=== PATIENT | female | born 1965 | race Caucasian/White ===

== ENCOUNTER 2017-10-28 11:37 | Inpatient (IN) | payer SELFPAY ==
[2017-10-28 11:58] LABS: Hemoglobin 11.8 g/dL (12.0-16.0); Mean Corpuscular HGB CONC 30.6 g/dL (32.0-36.0); Mean Corpuscular Hemoglobin 25.1 pg (27.0-31.0); Mean Corpuscular Volume 82.2 fl (81.0-99.0); Mean Platelet Volume 7.5 fL (7.4-10.4); Platelet Count 865 thou/uL (130-400); RBC Distribution Width 15.8 % (11.5-14.5); Red Blood Cell (RBC) Count 4.68 mill/uL (4.20-5.40); White Blood Cell (WBC) Count 31.7 thou/uL (4.8-10.8)
[2017-10-28] MEDS ORDERED: Norepinephrine 4 MG/4 ML VIAL ONE ×2 (11:58→12:04)
[2017-10-28 12:16] LABS: ALT (SGPT) 35 U/L (8-55); AST (SGOT) 46 U/L (5-34); Albumin 3.4 g/dL (3.5-5.0); Alkaline Phosphatase 127 U/L (40-150); Anion Gap 16 mmol/L (10-20); BUN (Urea Nitrogen) 14 mg/dL (9.8-20.1); Bilirubin, Total 0.3 mg/dL (0.2-1.2); Calc. Creatinine Clearance 0 mL/min (70-130); Calcium 8.6 mg/dL (7.8-10.44); Carbon Dioxide 17 mmol/L (22-29); Chloride 111 mmol/L (98-107); Estimated GFR-MDRD 72; Globulin 4.1 g/dL (2.4-3.5); Glucose 192 mg/dL (70-105); Potassium 4.9 mmol/L (3.5-5.1); Protein, Total 7.5 g/dL (6.0-8.3); Sodium 139 mmol/L (136-145)
[2017-10-28] MEDS ORDERED: Sodium Bicarb 50 MEQ/50 ML Abboject 8.4% SYRINGE ONE (12:16)
--- NOTE | 2017-10-28 12:25 | RAD ---
PORTABLE AP CHEST: Date: 10/28/17 HISTORY: Intubation, aortic occlusion. COMPARISON: 10/28/17 at 1033 hours. FINDINGS: Endotracheal tube is again noted in place with tip overlying the T4-5 level and above the level of th e anila. Again noted are bilateral interstitial and alveolar opacities, which are are slightly incre ased from the prior study and may be related to pulmonary edema. Ayleen B-lines are also seen suggest ing pulmonary edema. No other interval change. IMPRESSION: 1. Endotracheal tube again noted in place. 2. Bilateral perihilar interstitial and alveolar opacities, probably attributable to pulmonary edema . POS: [facility]
[2017-10-28 12:29] LABS: Band 12 % (5-11); Lymphocytes 8 % (21-51); MDiff Complete? YES; Metamyelocyte 4 % (0-0); Monocytes 4 % (0-10); Myelocyte 2 % (0-0); Neutrophil 70 % (42-75); PLT Morphology Comment Appears Increased; RBC Morphology Normal
--- NOTE | 2017-10-28 15:05 | OP ---
DATE OF OPERATION: 10/28/2017 PREOPERATIVE DIAGNOSIS: Acute aortic occlusion. POSTOPERATIVE DIAGNOSIS: Acute aortic occlusion. PROCEDURE: Emergency aortobifemoral bypass. SURGEON: Dr. Todd Manriquez M.D. and Dr. Kali Laguerre. ANESTHESIA: General endotracheal. ESTIMATED BLOOD LOSS: 200 mL DESCRIPTION OF PROCEDURE: The patient was emergently brought to the operating room from the Emergenc y Department after being transferred via helicopter from [facility]. She was placed in supine position on the operating room table. General anesthesia was induced. Left subclavian centra l line was placed. Abdomen and legs were prepped and draped in usual sterile fashion. Both groins w ere exposed via vertical incisions. Common femoral, superficial femoral, and profunda femoris arteri es were exposed. Tunnels were begun under the inguinal ligament with ring clamps. Abdomen was then opened through a vertical midline laparotomy incision. Fascia was incised with left artery. Periton eum was entered. The peritoneal incision was extended from xiphoid to pubis. NG tube was confirmed in place. The transverse colon and omentum were delivered superiorly. The small bowel and right col on delivered out of the abdomen to the right. Bookwalter and [place] retractors were used to expose the retroperitoneum. The duodenum was brought off the retroperitoneum with a gentle electrocautery. Retroperitoneum was entered and the aorta exposed just distal to the renal arteries. The aortic exp osure was extended distally down to just at the proximal common iliac arteries. Ring clamps were the n passed into the abdominal cavity. The patient was given 7500 units of heparin. After 3 minutes, t he aorta was clamped just below the renal arteries. Aortotomy was performed just proximal to the inf erior mesenteric artery. The distal aorta was closed with running dual layer 3-0 Prolene suture. Th ere was significant burden of white gelatinous material, which was sent for routine pathologic exam. The aorta was burped and there was excellent antegrade flow. The aorta was prepared for proximal an astomosis. A 14 x 7 graft was selected and anastomosed proximally with running 4-0 Prolene suture. On release the aortic clamp, there was no bleeding and good hemostasis. Limbs were tunneled to both groins. On the right, this was approached first. The graft was sewn to the common femoral artery ex tending down onto the superficial femoral artery with running 5-0 Prolene suture. On release of clam ps, there was good hemostasis and good distal flow. On the left, the graft was extended down onto th e proximal profunda. A running 5-0 Prolene anastomosis was created. A 50 mg of protamine was given. Hemostasis was ensured. Groins were packed. The abdomen was reexplored. There was no bleeding from the retroperitoneum. The retroperitoneum was reclosed over the aortic graft with running 2-0 Vicryl suture. Abdomen was then copiously irrigated . Bowels were put back in the anatomic position. Sponge count was performed and was correct. The f ascia was closed in a running fashion with looped #1 PDS. Wounds were then irrigated, closed in mult iple layers, and clips used to close the skin. Groin incisions were copiously irrigated. There were palpable pulses, both in the profunda and the superficial femoral artery bilaterally. Groins were c losed in layers and clips used to close the skin. The patient tolerated procedure well, and was us sferred to the intensive care unit in stable, but critical condition.
[2017-10-28] MEDS ORDERED: Ondansetron HCl/PF 4 MG/2 ML Vial IVP PRN (15:10)
[2017-10-28] MEDS ORDERED: Sodium Chloride 0.9% 1,000 ML IV SCH ×2 (15:10→16:45)
[2017-10-28] MEDS ORDERED: Nitroglycerin 50 MG/250 ML BOT 250 ML IVPB PRN (15:10)
[2017-10-28] MEDS ORDERED: Fentanyl 100 MCG/2 ML VIAL SLOW IVP PRN ×2 (15:10)
[2017-10-28] MEDS ORDERED: Norepinephrine 8 MG/0.9% NS 250 ML IVPB PRN (15:10)
[2017-10-28] MEDS ORDERED: Ventilator Sedation Protocol 1 EACH FS ONE (15:10)
[2017-10-28] MEDS ORDERED: Potassium Chloride 20 MEQ/100 ML PREMIX BAG IVPB PRN (15:10)
[2017-10-28] MEDS ORDERED: Bisacodyl 5 MG TAB PO PRN (15:10)
[2017-10-28] MEDS ORDERED: Bisacodyl 10 MG SUPP PR PRN (15:10)
[2017-10-28] MEDS ORDERED: hydrALAZINE 20 MG/ML VIAL SLOW IVP PRN (15:10)
[2017-10-28] MEDS ORDERED: Mag-Al 1200 mg/1200 mg/30 ML UDCUP PO PRN (15:10)
[2017-10-28] MEDS ORDERED: Post-Op Insulin Drip Protocol IVPB ONE (15:10)
[2017-10-28] MEDS ORDERED: Dextrose 5% in Water 1,000 ML IV PRN (15:16)
[2017-10-28] MEDS ORDERED: Dextrose 50% Abboject 50 ML SYRINGE SLOW IVP PRN (15:16)
[2017-10-28] MEDS ORDERED: fentaNYL Citrate/PF 2,000 MCG in Sodium Chloride 0.9% 60 ML IV SCH (15:18)
[2017-10-28] MEDS ORDERED: DISCONTINUE PREVIOUS NARCOTIC PAIN MEDICATIONS AND BENZODIAZEPINES FS SCH (15:18)
[2017-10-28] MEDS ORDERED: Propofol BOLUS 1,000 MG/100 ML VIAL IV PRN (15:18)
[2017-10-28] MEDS ORDERED: Lorazepam 2 MG/ML VIAL SLOW IVP PRN (15:18)
[2017-10-28] MEDS ORDERED: Fentanyl BOLUS 250 ML IVPB PRN (15:18)
[2017-10-28] MEDS ORDERED: Morphine 4 MG/ML VIAL SLOW IVP PRN (15:18)
--- NOTE | 2017-10-28 15:27 | CON ---
DATE OF CONSULTATION: 10/28/2017 HISTORY OF PRESENT ILLNESS: Ms. Cleary is a 52-year-old woman who presented to the [facility] with severe back pain. She rapidly progressed to having a mottled skin from her umbilicu s to her feet. She had an acute aortic dissection protocol. CT scan performed that show aortic occl usion just distal to the renal arteries. The patient was intubated due to mental status changes and transferred to [facility] via helicopter. On her arrival, chest x-ray was performed confirming endotracheal tube placement. There was good CO2 return. The labs were drawn for type and cross, and the patient was rapidly assessed. Pulse was 11 0, blood pressure at this time was 110/79. The patient indeed was mottled from umbilicus to the feet . She had no femoral pulses. The patient was rapidly taken to the operating room for operative inte rvention. PAST MEDICAL HISTORY: Unknown. PAST SURGICAL HISTORY: Unknown. CURRENT MEDICATIONS: Unknown. ALLERGIES: Unknown. SOCIAL HISTORY: Unknown. PHYSICAL EXAMINATION: As above. ASSESSMENT AND PLAN: Acute aortic occlusion for aortobifemoral bypass.
[2017-10-28] MEDS: Propofol 1,000 MG/100 ML VIAL IV PRN (15:34)
[2017-10-28 15:53] LABS: Anion Gap 16 mmol/L (10-20); BUN (Urea Nitrogen) 14 mg/dL (9.8-20.1); Calc. Creatinine Clearance 92 mL/min (70-130); Calcium 7.9 mg/dL (7.8-10.44); Carbon Dioxide 21 mmol/L (22-29); Chloride 108 mmol/L (98-107); Estimated GFR-MDRD 58; Glucose 192 mg/dL (70-105); Potassium 5.9 mmol/L (3.5-5.1); Sodium 139 mmol/L (136-145)
[2017-10-28 15:58] LABS: Band 11 % (5-11); Hemoglobin 11.9 g/dL (12.0-16.0); Hypochromia SLIGHT = 6-15 cells (100X) (0-5/hpf); Lymphocytes 10 % (21-51); MDiff Complete? YES; Mean Corpuscular HGB CONC 30.7 g/dL (32.0-36.0); Mean Corpuscular Volume 81.4 fl (81.0-99.0); Mean Platelet Volume 7.3 fL (7.4-10.4); Metamyelocyte 4 % (0-0); Monocytes 5 % (0-10); Myelocyte 1 % (0-0); Neutrophil 69 % (42-75); PLT Morphology Comment Appears Increased; Platelet Count 786 thou/uL (130-400); Polychromasia SLIGHT = 2-3 cells (100X) (0-2/hpf); Red Blood Cell (RBC) Count 4.76 mill/uL (4.20-5.40); White Blood Cell (WBC) Count 32.9 thou/uL (4.8-10.8)
--- NOTE | 2017-10-28 16:04 | RAD ---
CHEST ONE VIEW: 10/28/17 HISTORY: Heart surgery. COMPARISON: 10/28/17. FINDINGS: The cardiac silhouette is magnified and enlarged. Pulmonary vasculature remains markedly engorged w ith widespread patchy infiltrates and reticulonodular interstitial prominence. Mediastinum is midline . Endotracheal catheter remains in place. Nasogastric tube descends to the abdomen. Tip of a left sub clavian central venous catheter overlies the cavoatrial junction. No evidence of pneumothorax. IMPRESSION: 1. Pulmonary vascular congestion. 2. Nasogastric tube and left subclavian central venous catheter have been placed and are in good radiographic position. POS: [facility]
[2017-10-28] MEDS: Insulin Regular 300 UNITS/3 ML VIAL SC PRN ×2 (16:07→19:49)
[2017-10-28 16:24] LABS: Actual Bicarbonate (HCO3a) 20.5 mEq/L (22-26); Base Excess (BEa) -5.6 mEq/L (0 (+/-) 2.5); CO2 Tension 42.7 mmHg (35.0-45.0); O2 Tension (PaO2) 149.1 mmHg (80.0-100.0)
[2017-10-28 16:25] LABS: Hematocrit-ABG 39.3 % (36.0-47.0); Hemoglobin (Hb) 11.6 g/dL (12.0-16.0); Puncture Site A-LINE
[2017-10-28 16:26] LABS: ALV-art Gradient 510.525 (0-20)
[2017-10-28] MEDS ORDERED: ePHEDrine/0.9% NaCl/PF SYRINGE 50 mg/10 ml ONE (16:32)
[2017-10-28] MEDS ORDERED: Heparin 10,000 UNITS/ 10 ML VIAL ONE (16:32)
[2017-10-28] MEDS ORDERED: Sodium Bicarb 50 MEQ/50 ML VIAL ONE (16:32)
--- NOTE | 2017-10-28 18:31 | CON ---
DATE OF CONSULTATION: 10/28/2017 SERVICE: Pulmonary Medicine. REASON FOR CONSULTATION: Ventilated patient. HISTORY OF PRESENT ILLNESS: The patient is a 52-year-old white female with past medical history sign ificant for a greater than 30-[id number]-[id number] history of smoking. She was in her usual state of health thi s morning when she woke up. She had sudden onset of lower extremity paresthesias, pain, and weakness . She slumped over into her bed. She did not hit her head. She was found in that location. She wa s subsequently brought to the Emergency Department where she had mottled lower extremities. Imaging studies confirmed that she had lack of blood flow to her legs. She subsequently went for an emergent aortobifemoral bypass surgery. Afterwards, she had decent blood flow to the bilateral lower extremi ties. She had horrendous acidosis on presentation, which is slowly improving. She is awake on mecha nical ventilation. She is able to wiggle all 4 extremities. She has no specific complaints right no w other than wanting to have the tube removed from her. PAST MEDICAL HISTORY: None. PAST SURGICAL HISTORY: 1. Tubal ligation. 2. Palmer teeth extraction. SOCIAL HISTORY: She has a 70-pjeq-frvh history of smoking and continues to smoke 1-1/2 packs on a da roseann basis. The family says she does not have any significant alcohol or illicit drug use. She works in [employer] with [employer]. That being said, they are not aware of any chemicals that she may be exposed to. She has never been exposed to tuberculosis so far as they are aware. She does not have dusts that she comes in contact with. FAMILY HISTORY: Noncontributory. ALLERGIES: PENICILLIN causes an unknown type of a rash. MEDICATIONS: The patient does not have any home medications. I have reviewed her inpatient medicati ons and modified them. REVIEW OF SYSTEMS: This cannot be obtained as the patient is currently intubated and sedated. PHYSICAL EXAMINATION: HEENT: Normocephalic, atraumatic. Sclerae are white, conjunctivae pink. Oral and nasal mucosa is m oist without lesions. GENERAL: The patient is somnolent, but wakes up. She is following commands. She is nodding yes and no appropriately. She is CAM negative currently. LUNGS: Decent air entry with prolonged expiratory phase and polyphonic wheezing. HEART: Tachycardic. Regular. ABDOMEN: Soft, nontender, nondistended. Bowel sounds are positive. GENITOURINARY: Mcgovern in place. NEUROLOGIC: Grossly nonfocal. MUSCULOSKELETAL: No cyanosis or clubbing. She has good perfusion. Capillary refill in the bilatera l lower extremities. Pulses are equal bilaterally. LABORATORY DATA: WBC 32.9, hemoglobin 38.7, and platelets 786,000. Band count is stable at 11%. PH 7.30, pCO2 42, pO2 149 on 100% FiO2 and a PEEP of 10 at that time. Potassium 5.9. Creatinine up tr ending to 0.93. Basic metabolic profile is otherwise unremarkable. LFTs are essentially unremarkabl e, but will be repeated in the morning. IMAGING: Chest x-ray demonstrates pulmonary vascular congestion. Nasogastric tube and left subclavi an central venous catheter in good position. She has an endotracheal tube terminating roughly 5 cm a azra the level of the anila. Lungs are hyperexpanded. ASSESSMENT: 1. Acute hypoxic respiratory failure. 2. Chronic obstructive pulmonary disease with mild acute exacerbation. 3. Hyperkalemia. 4. Acute aortic occlusion, status post aortobifemoral bypass, postop day zero. 5. Chronic obstructive pulmonary disease, suspected. 6. Peripheral vascular disease. PLAN: We will give her aspirin and start some nebulized medications as scheduled. I will give her a dose of Kayexalate. We will repeat potassium tomorrow morning. Liver function studies as well as o ther laboratories will be repeated in the morning. I will hold off on IV fluids as she has already g judd several significant boluses in the operating room during the procedure. I will change her over to pressure support ventilation as she seems to tolerate these settings a little bit better. We orlando l consider her for extubation in the morning assuming she clears her acidosis. CRITICAL CARE TIME: 40 minutes.
[2017-10-28] MEDS: CEFAZOLIN/Water 2 GM/20 ML SYRINGE SLOW IVP SCH (18:39)
[2017-10-28] MEDS: Atorvastatin Calcium 40 MG TAB PO SCH (20:10)
[2017-10-28] MEDS: Famotidine 40 MG/4 ML VIAL SLOW IVP SCH (20:23)
[2017-10-29] MEDS: Propofol 1,000 MG/100 ML VIAL IV PRN (00:07)
[2017-10-29] MEDS: Insulin Regular 300 UNITS/3 ML VIAL SC PRN ×3 (00:07→20:37)
[2017-10-29] MEDS: CEFAZOLIN/Water 2 GM/20 ML SYRINGE SLOW IVP SCH ×2 (02:49→11:49)
[2017-10-29 05:10] LABS: Band 6 % (5-11); Hemoglobin 11.2 g/dL (12.0-16.0); Lymphocytes 10 % (21-51); MDiff Complete? YES; Mean Corpuscular HGB CONC 32.1 g/dL (32.0-36.0); Mean Corpuscular Hemoglobin 25.6 pg (27.0-31.0); Mean Corpuscular Volume 79.8 fl (81.0-99.0); Mean Platelet Volume 7.4 fL (7.4-10.4); Monocytes 3 % (0-10); Neutrophil 81 % (42-75); PLT Morphology Comment Appears Increased; Platelet Count 544 thou/uL (130-400); RBC Distribution Width 15.9 % (11.5-14.5); Red Blood Cell (RBC) Count 4.36 mill/uL (4.20-5.40); White Blood Cell (WBC) Count 20.9 thou/uL (4.8-10.8)
[2017-10-29 05:15] LABS: ALT (SGPT) 103 U/L (8-55); AST (SGOT) 311 U/L (5-34); Albumin 2.9 g/dL (3.5-5.0); Alkaline Phosphatase 116 U/L (40-150); Bilirubin, Direct 0.2 mg/dL (0.1-0.3); Bilirubin, Total 0.3 mg/dL (0.2-1.2); Protein, Total 6.6 g/dL (6.0-8.3)
[2017-10-29 05:18] LABS: Anion Gap 13 mmol/L (10-20); BUN (Urea Nitrogen) 14 mg/dL (9.8-20.1); Calc. Creatinine Clearance 87 mL/min (70-130); Calcium 7.6 mg/dL (7.8-10.44); Carbon Dioxide 21 mmol/L (22-29); Cardiac Risk 4.9 (Less than 4.5); Chloride 111 mmol/L (98-107); Cholesterol 138 mg/dl (< 200 Desired); Estimated GFR-MDRD 55; Glucose 155 mg/dL (70-105); HDL Cholesterol 28 mg/dL (>60 Neg Risk); LDL Cholesterol, Calculated 88 mg/dL; Magnesium 2.1 mg/dL (1.6-2.6); Phosphorus 2.1 mg/dL (2.3-4.7); Potassium 4.1 mmol/L (3.5-5.1); Sodium 141 mmol/L (136-145); Triglycerides 110 mg/dL (Less than 150)
[2017-10-29] MEDS ORDERED: Furosemide 20 MG/2 ML VIAL SLOW IVP SCH (06:30)
--- NOTE | 2017-10-29 06:50 | PRG ---
DATE OF SERVICE: 10/29/2017 SERVICE: Pulmonary Medicine. INTERVAL HISTORY: The patient is doing well from a respiratory standpoint. She denies any current chest pain, nausea, vomiting, fevers or chills. She is on mechanical ventilation. She is on a little bit of a sedation holiday and is following some simple commands. She had an uneventful night. PHYSICAL EXAMINATION: VITAL SIGNS: Afebrile, pulse 113, blood pressure 106/72, respirations 19, saturation 99% on 31% FiO2 and a PEEP of 5. GENERAL: The patient is intubated and little sleepy, but she wakes up comfortably. Without stimulation, she will drift back off to sleep in less than 10 seconds. HEENT: Normocephalic, atraumatic. Sclerae are white, conjunctivae pink. Oral and nasal mucosa is moist without lesions. LUNGS: Decent air entry bilaterally. Rhonchi are present. Dependent crackles are also evident. HEART: Normal rate, regular. ABDOMEN: Soft, nontender, nondistended. Bowel sounds are positive. MUSCULOSKELETAL: No cyanosis or clubbing. There is no pitting in the bilateral lower extremities. NEUROLOGIC: Grossly nonfocal. LABORATORY DATA: WBC 20.9, hemoglobin 11.2, platelets 544,000. Neutrophil and band count are improving. Basic metabolic profile is completely unremarkable. Calcium 7.6, phosphorus 2.1. Magnesium falls within the normal limits. AST and ALT are both trending upward. IMAGING: Chest x-ray demonstrates endotracheal tube in good position. Pulmonary vascular congestion is evident. There is a right lower lobe infiltrate which is a touch denser. Enteric catheter courses well below the level of the diaphragm. ASSESSMENT: 1. Acute hypoxic respiratory failure secondary to resuscitation. 2. Chronic obstructive pulmonary disease with mild exacerbation. 3. Hyperkalemia, resolved. 4. Hypophosphatemia. 5. Peripheral vascular disease? 6. Acute aortic occlusion, status post aortobifemoral bypass, postoperative day #1. DISCUSSION AND PLAN: We will put on a spontaneous breathing trial. Phosphorus will be replaced today. Pulmonary Critical Care will continue to follow along for the time being. If she meets criteria, extubation will be considered. We will allow her to auto diurese through time. I anticipate kidney function getting a little bit worse through time because of this recent event and the fact that she was anuric when she returned from the operating room for a couple of hours. LFTs will be rechecked in a couple of days. Critical care time: 30 minutes. TERRIE
[2017-10-29] MEDS: Famotidine 40 MG/4 ML VIAL SLOW IVP SCH ×2 (08:01→20:25)
--- NOTE | 2017-10-29 08:11 | RAD ---
PORTABLE CHEST: DATE: 10/29/17. PROVIDED CLINICAL HISTORY: Post open heart. FINDINGS: Comparison 10/28/17. Cardiac and mediastinal silhouette is unchanged in appearance. Endotracheal tub e, left subclavian central line, and enteric catheter are again seen in similar positions. Prominenc e of the pulmonary vasculature and pulmonary interstitium. Possible right perihilar airspace disease . IMPRESSION: Findings compatible with volume overload/congestive failure with alveolar edema involving the right p erihilar region. POS: [facility]
[2017-10-29] MEDS: Acetaminophen 325 MG TAB PO PRN ×3 (10:00→20:25)
[2017-10-29 11:31] LABS: Hemoglobin A1c 5.8 % (4.0-6.0)
[2017-10-29] MEDS ORDERED: predniSONE 20 MG TAB PO SCH (16:45)
[2017-10-29] MEDS: Atorvastatin Calcium 40 MG TAB PO SCH (20:26)
[2017-10-30] MEDS: Insulin Regular 300 UNITS/3 ML VIAL SC PRN ×2 (00:04→04:28)
[2017-10-30] MEDS: Morphine 4 MG/ML VIAL SLOW IVP PRN ×2 (00:12→20:04)
[2017-10-30 05:10] LABS: Anion Gap 9 mmol/L (10-20); BUN (Urea Nitrogen) 15 mg/dL (9.8-20.1); Calc. Creatinine Clearance 138 mL/min (70-130); Calcium 8.1 mg/dL (7.8-10.44); Carbon Dioxide 27 mmol/L (22-29); Chloride 108 mmol/L (98-107); Estimated GFR-MDRD Greater than 90; Glucose 130 mg/dL (70-105); Potassium 3.6 mmol/L (3.5-5.1); Sodium 140 mmol/L (136-145)
[2017-10-30 05:33] LABS: Band 9 % (5-11); Hemoglobin 10.2 g/dL (12.0-16.0); Lymphocytes 9 % (21-51); MDiff Complete? YES; Mean Corpuscular HGB CONC 32.1 g/dL (32.0-36.0); Mean Corpuscular Hemoglobin 25.5 pg (27.0-31.0); Mean Corpuscular Volume 79.5 fl (81.0-99.0); Mean Platelet Volume 7.9 fL (7.4-10.4); Monocytes 4 % (0-10); Neutrophil 78 % (42-75); Platelet Count 364 thou/uL (130-400); RBC Distribution Width 15.8 % (11.5-14.5); Red Blood Cell (RBC) Count 4.01 mill/uL (4.20-5.40); White Blood Cell (WBC) Count 19.9 thou/uL (4.8-10.8)
--- NOTE | 2017-10-30 08:31 | RAD ---
PORTABLE CHEST: DATE: 10/30/17. PROVIDED CLINICAL HISTORY: Post open heart. FINDINGS: Comparison 10/29/17. Interval extubation and removal of enteric catheter. Additional significant int erval change with respect to the prior examination is not apparent. IMPRESSION: As above. POS: [facility]
[2017-10-30] MEDS: Famotidine 40 MG/4 ML VIAL SLOW IVP SCH (09:10)
[2017-10-30] MEDS: predniSONE 20 MG TAB PO SCH (09:10)
[2017-10-30] MEDS ORDERED: Furosemide 40 MG/4 ML VIAL SLOW IVP SCH (09:45)
[2017-10-30] MEDS ORDERED: Enoxaparin Sodium 40 MG/0.4 ML SYRINGE SC SCH ×2 (13:00→21:00)
--- NOTE | 2017-10-30 15:00 | MRI ---
MRI BRAIN NONCONTRAST: DATE: 10-30-17 TIME: 11:56 a.m. HISTORY: 52-year-old female with acute stroke: Left sided weakness, nystagmus, and diplopia. The findings were discussed by telephone with Dr. Horan at the time of this dication. COMPARISON: None available. FINDINGS: There are multiple foci of T2-hyperintense signal and restricted diffusion, representing acute or sub acute infarctions, in the following locations: Left side of the medulla. Moderate sized lesion in the inferior medial aspect of the left cerebellar hemisphere. Small lesion in cerebellar vermis. Scattered tiny lesions in the mid portion of the left cerebellar hemisphere. Many small lesions involving bilateral occipital cortex and some white matter. Numerous small and tiny such lesions in tram track array, along the bilateral cerebral hemispheres, involving white matter and schwarz matter. In addition to these, there is an old lacunar infarction in the right cerebellar hemisphere in the ri ght superior cerebellar artery territory. The ventricles are normal in size and configuration. No mass effect, midline shift, acute or remote i ntraaxial hemorrhage, or extraaxial fluid collection. IMPRESSION: 1. Numerous small acute or subacute infarctions in the watershed zone between the bilateral middle ce rebral artery and bilateral anterior cerebral artery territories. 2. Acute or subacute cortical infarctions of the bilateral posterior cerebral artery territories (occ ipital cortex). 3. Acute or subacute infarctions of the left PICA (posterior-inferior cerebellar artery) territory. 4. No mass effect or intracranial hemorrhage. Code TANISHA JN R POS: [facility]
[2017-10-30] MEDS: Acetaminophen 325 MG TAB PO PRN (20:03)
[2017-10-30] MEDS: Atorvastatin Calcium 40 MG TAB PO SCH (20:05)
[2017-10-31] MEDS: Morphine 4 MG/ML VIAL SLOW IVP PRN ×3 (03:03→20:02)
[2017-10-31 05:47] LABS: Hemoglobin 9.9 g/dL (12.0-16.0); Lymphocytes 10 % (21-51); MDiff Complete? YES; Mean Corpuscular HGB CONC 31.5 g/dL (32.0-36.0); Mean Corpuscular Hemoglobin 25.1 pg (27.0-31.0); Mean Corpuscular Volume 79.6 fl (81.0-99.0); Mean Platelet Volume 7.8 fL (7.4-10.4); Monocytes 2 % (0-10); Neutrophil 88 % (42-75); Platelet Count 392 thou/uL (130-400); Red Blood Cell (RBC) Count 3.93 mill/uL (4.20-5.40); White Blood Cell (WBC) Count 22.3 thou/uL (4.8-10.8)
[2017-10-31 05:51] LABS: Anion Gap 11 mmol/L (10-20); BUN (Urea Nitrogen) 17 mg/dL (9.8-20.1); Calc. Creatinine Clearance 142 mL/min (70-130); Calcium 8.2 mg/dL (7.8-10.44); Carbon Dioxide 25 mmol/L (22-29); Chloride 105 mmol/L (98-107); Estimated GFR-MDRD Greater than 90; Glucose 131 mg/dL (70-105); Sodium 137 mmol/L (136-145)
[2017-10-31] MEDS ORDERED: Furosemide 40 MG/4 ML VIAL SLOW IVP SCH (06:00)
[2017-10-31] MEDS ORDERED: Apixaban 5 MG TAB PO SCH (09:00)
[2017-10-31] MEDS: predniSONE 20 MG TAB PO SCH (09:18)
[2017-10-31] MEDS: Meclizine HCl 25 MG TAB PO PRN ×2 (09:42→20:05)
--- NOTE | 2017-10-31 11:53 | PRG ---
DATE OF SERVICE: 10/31/2017 SERVICE: Pulmonary Medicine INTERVAL HISTORY: The patient is doing fine from a respiratory standpoint. She [facility]. She can move all of her extremities. That being said, she preferred to keep her eyes closed. This is because she has severe dizziness whenever she opens them. Otherwise, there has been no interval change to her condition. She denies any sort of shortness of breath or chest discomfort . PHYSICAL EXAMINATION: VITAL SIGNS: Afebrile, pulse 84, blood pressure 101/69, respirations 22, saturation 100% on room air . GENERAL: The patient is awake, alert, in no apparent distress. LUNGS: Excellent air entry bilaterally. There is a slightly prolonged expiratory phase, but no whee zing. No rhonchi are present. HEART: Normal rate, regular. ABDOMEN: Soft, nontender, nondistended. Bowel sounds are positive. MUSCULOSKELETAL: No cyanosis or clubbing. There is no pitting in the bilateral lower extremities. LABORATORY DATA: WBC 22.3, hemoglobin 9.9, platelets 392,000 and stabilizing. Neutrophil count is 8 8%. Basic metabolic profile is essentially unremarkable/stable. IMAGIN. MRI of the brain demonstrates watershed distribution of infarct throughout the cortex. She also has a left PICA territory infarction. 2. Echocardiogram demonstrates a slightly reduced ejection fraction 40-45%. Left ventricular functi on is mildly depressed. Left atrium is dilated. Very large mass or vegetation is seen on the anteri or leaflet of the mitral valve. Mitral regurgitation is also present. ASSESSMENT: 1. Acute hypoxic respiratory failure, resolved. 2. Chronic obstructive pulmonary disease with mild exacerbation. 3. Acute aortic occlusion, status post aortobifemoral bypass, postop day 2. 4. Cardiac mass versus vegetation. 5. Watershed distribution of strokes, and left PICA acute stroke. PLAN: The physical therapy and the stroke team is going to come by and evaluate the patient and cont inue working with her. Neurology consultation will be placed. For the cardiac mass, will involve Ca rdiology to help was work up that lesion. This mass is what likely cause the acute occlusion of the aorta. I am very interested to seeing what the pathology is going to be. Cardiology consultation wi ll be placed. From my perspective, she is stable for transition to the neuro unit. Pulmonary will c ontinue to follow along.
--- NOTE | 2017-10-31 15:00 | PRG ---
DATE OF SERVICE: 10/30/2017 SERVICE: Pulmonary Medicine. INTERVAL HISTORY: The patient is doing fine from a respiratory standpoint. She is breathing comfort ably. She is having a little less nystagmus, but she still has a left gaze preference. As such, we are going to be moving forward with an MRI of the brain. She does not have any complaints of fevers, chills, nausea, or vomiting. There are no significant events overnight, otherwise. PHYSICAL EXAMINATION: VITAL SIGNS: Afebrile, pulse 85, blood pressure 117/92, respirations 18, saturation 95% on 2 L nasal cannula. GENERAL: The patient is awake and alert, in no apparent distress. LUNGS: Decent air entry. Dependent crackles are minimal. HEART: Normal rate, regular. ABDOMEN: Soft, nontender, nondistended. Bowel sounds are positive. MUSCULOSKELETAL: No cyanosis or clubbing. There is no pitting in the bilateral lower extremities. NEUROLOGIC: Grossly nonfocal. LABORATORY DATA: WBC 19.9, hemoglobin 10.2. Basic metabolic profile is essentially unremarkable exc ept for potassium of 3.6. IMAGING: Chest x-ray demonstrates left-sided subclavian central venous catheter is in good position. There is a left upper parenchymal opacification likely reflecting a pleural effusion. Pulmonary va scular congestion is minimal. ASSESSMENT: 1. Acute hypoxic respiratory failure, improving. 2. Chronic obstructive pulmonary disease with mild exacerbation. 3. Hyperkalemia, resolved. 4. Hypophosphatemia, resolved. 5. Peripheral vascular disease. 6. Acute aortic occlusion, status post aortobifemoral bypass, postoperative day #2. 7. Left gaze preference. PLAN: She can be transitioned to the neuro unit. We will pursue an MRI of the brain today to evalua te for cerebellar lesion. Pulmonary Critical Care will continue to follow along.
[2017-10-31] MEDS ORDERED: Communication Order-Pharmacy FS SCH (15:15)
--- NOTE | 2017-10-31 15:19 | CON ---
DATE OF CONSULTATION: 10/31/2017 REASON FOR CONSULTATION: Preoperative evaluation. HISTORY OF PRESENT ILLNESS: Ms. Irma Cleary is a 52-year-old woman. The patient had the sudden ons et of severe pain and loss of feeling in her lower part of her body on 10/28/2017. She was taken to the operating room in an emergency basis and emergency aortobifemoral bypass graft was done. Also, t here is a large amount of whitish gelatinous material removed from the abdominal aorta. Echocardiogr am subsequently has revealed that she has masses which looked like they were attached to the mitral v alve and also some in the left atrium. These are mobile and it looks like very high risk for emboli. She has also had been found to have intracranial emboli as will be outlined below. Patient states she is feeling fine up until this point. She never had chest pain or pressure. The patient is currently feeling better. No chest pain or pressure. The patient initially had severe metabolic acidosis with model of lower extremities. SOCIAL HISTORY: A [id number] history of smoking. Continued to smoke 1 to 1-1/2 pack per day. No alcohol. Works at [employer], she says, in [employer]. FAMILY HISTORY: Negative for heart disease at a young age. ALLERGIES: PENICILLIN. MEDICATIONS: No cardiac medicines prior to this admission. REVIEW OF SYSTEMS: Constitutional: No significant weight gain or loss. Vision: No changes. Heari ng: No changes. Pulmonary: No cough or wheezing. Gastrointestinal: No nausea, vomiting, diarrhea . Skin: No rashes. Neurologic: Said her legs feel somewhat numb after the episode as outlined abo ve, but there is no pain. Genitourinary: No burning with urination. PHYSICAL EXAMINATION: GENERAL: This is a 52-year-old woman resting comfortably in no distress. VITAL SIGNS: Blood pressure 110/70, pulse in the 80s. HEENT: Eyes, sclerae nonicteric. Mouth, mucous membranes moist. NECK: Supple, no lymphadenopathy. LUNGS: Clear, no wheezing, rales or rhonchi. CARDIAC: Normal S1, normal S2. There is no murmur, rub or gallop. ABDOMEN: Soft, nontender. EXTREMITIES: Warm, dry, no clubbing or cyanosis. There is no edema. PERTINENT LABORATORY AND X-RAY FINDINGS: The potassium is 4.0, hemoglobin was 31.7, AST down to 22. Hemoglobin 9.9. EKG did show a sinus tachycardia initially poor R-wave progression, 0.[address] depr ession in V4. The initial blood gas in the computer were pH 7.3, pCO2 is 42.7. Echocardiogram revealed what looks like a mass on the mitral valve, but also some additional masses i n the left atrium. The evaluation and imaging and for the brain indicates that she likely had some e mbolic events to the brain, left side of the medulla and cerebellar hemisphere, please see that note but there are multiple evidence of infarctions. ASSESSMENT: 1. Multiple embolic events. Fortunately, the largest one went to the aorta. She is able to be fabien curt surgically as outlined above. 2. Small bowel lesions in the heart as outlined above with further evidence of other embolization. 3. Dr. Manriquez is concerned about the possibility of coronary disease and wishes to have the coronary anatomy delineated prior to open heart surgery. PLAN: We will discuss with Dr. Ocampo, consideration for radial artery catheterization to be done to lay[place]. Risks including stroke, bleeding, and loss of blood supply to the right arm.
[2017-10-31] MEDS: Atorvastatin Calcium 40 MG TAB PO SCH (20:05)
[2017-10-31] MEDS ORDERED: Enoxaparin Sodium 40 MG/0.4 ML SYRINGE SC SCH (21:00)
[2017-11-01] MEDS: Morphine 4 MG/ML VIAL SLOW IVP PRN ×2 (02:51→06:20)
[2017-11-01 04:47] LABS: Band 6 % (5-11); Hemoglobin 10.5 g/dL (12.0-16.0); Lymphocytes 7 % (21-51); MDiff Complete? YES; Mean Corpuscular HGB CONC 31.6 g/dL (32.0-36.0); Mean Corpuscular Hemoglobin 25.1 pg (27.0-31.0); Mean Corpuscular Volume 79.4 fl (81.0-99.0); Mean Platelet Volume 7.8 fL (7.4-10.4); Monocytes 3 % (0-10); Neutrophil 84 % (42-75); Platelet Count 436 thou/uL (130-400); Red Blood Cell (RBC) Count 4.18 mill/uL (4.20-5.40); White Blood Cell (WBC) Count 19.6 thou/uL (4.8-10.8)
[2017-11-01] MEDS ORDERED: Sodium Chloride 0.9% 1,000 ML IV SCH ×2 (06:00→08:30)
[2017-11-01] MEDS ORDERED: Verapamil 5 MG/2 ML VIAL ONE (06:36)
[2017-11-01] MEDS ORDERED: Heparin 10,000 UNITS/1 ML VIAL ONE (06:36)
[2017-11-01] MEDS ORDERED: Nitroglycerin 100MG/250ML BOT 250 ML ONE (06:36)
[2017-11-01] MEDS ORDERED: Sodium Chloride 0.9% 200 ML IV SCH (09:00)
--- NOTE | 2017-11-01 09:46 | PRG ---
DATE OF SERVICE: 11/01/2017 SERVICE: Pulmonary Medicine. INTERVAL HISTORY: The patient is doing fine from a respiratory standpoint. Mentation vasquez, things s eem to be a little bit improved. That being said, she has to go down for an operation to remove this lesion from the valve. She denies any current shortness of breath or chest discomfort. PHYSICAL EXAMINATION: VITAL SIGNS: Afebrile, pulse 91, blood pressure 114/70, respirations 16, saturation 96% on room air. GENERAL: The patient is awake, alert, no apparent distress. LUNGS: Excellent air entry bilaterally with no prolonged expiratory phase. Rhonchi are present, but cleared with cough. No wheezing or crackles are appreciated. HEART: Normal rate and regular. ABDOMEN: Soft, nontender, and nondistended. Bowel sounds are positive. MUSCULOSKELETAL: No cyanosis or clubbing. There is no pitting in the bilateral lower extremities. NEUROLOGIC: Grossly nonfocal. LABORATORY DATA: WBC 19.6, hemoglobin 10.5, platelets 436,000 and improving. Basic metabolic profil e is essentially unremarkable. Blood cultures x2 are negative. IMAGING: Echocardiogram demonstrates a very large mobile thrombus on the valve. ASSESSMENT: 1. Acute hypoxic respiratory failure, resolving. 2. Chronic obstructive pulmonary disease with mild exacerbation, currently optimized for proceeding with procedure. 3. Peripheral vascular disease, mild. 4. Acute aortic occlusion, status post aortobifemoral bypass, postop day #3. 5. Cerebrovascular accident with likely occlusive event as well as watershed infarcts. 6. Cardiac mass. PLAN: The patient will remain in the ICU. She is going down for an open heart surgery tomorrow morn ing. Pulmonary or Critical Care will continue to follow along with the patient remains in this locat ion.
[2017-11-01] MEDS: traMADol HCl 50 MG TAB PO PRN ×3 (10:22→21:35)
[2017-11-01] MEDS: predniSONE 20 MG TAB PO SCH (10:23)
--- NOTE | 2017-11-01 10:45 | CON ---
DATE OF CONSULTATION: 10/31/2017 REFERRING PROVIDER: Dr. Todd Manriquez. REASON FOR CONSULTATION: Stroke. HISTORY OF PRESENT ILLNESS: Ms. Cleary is a pleasant 52-year-old female who has been consul curt for evaluation of stroke. History is obtained from patient's medical chart as well as patient. Apparently, patient reports that on 10/28/2017, she had sudden onset of numbness, tingling, and weakn ess of both lower extremities. She was unable to move her lower extremities. She was brought to [facility] where she was found to have mottled appearance of both lower extremities. She had u [facility] CT dissection protocol which had shown occlusion of the infrarenal abdominal aorta and iliac arteries. She underwent aortobifemoral bypass surgery. Post-surgery when she was extubated, she wa s noted to have nystagmus and incoordination, which prompted MRI of the brain to be done which showed multifocal bilateral cerebral hemispheres as well as cerebellar hemisphere ischemic infarct with the largest one being on the left PICA territory. Currently, she reports that she is still weak in her both lower extremities. She denies any headache, chest pain, palpitation, numbness or tingling. She does complain of having double vision. PAST MEDICAL HISTORY: None significant. PAST SURGICAL HISTORY: Significant for tubal ligation. SOCIAL HISTORY: She has a [id number] history of smoking. She denies alcohol use or illicit drug u se. FAMILY HISTORY: Noncontributory. CURRENT MEDICATIONS: No home medications. ALLERGIES: Include PENICILLIN. FAMILY HISTORY: Noncontributory. REVIEW OF SYSTEMS: As mentioned in the HPI, otherwise negative. PHYSICAL EXAMINATION: VITAL SIGNS: Blood pressure of 121/78, heart rate of 100, respirations of 13, O2 sats of 100% on juve m air. GENERAL: Well-developed, well-nourished female in no apparent distress. RESPIRATORY: Clear to auscultation bilaterally. CARDIOVASCULAR: Regular rate and rhythm. NEUROLOGIC: Mental status: The patient is awake, alert, and oriented x3. Speech and language: Flu ent speech. Cranial nerves: Pupils are 3 mm and reactive. Visual logan appears intact. Extraocul ar muscles, she has right horizontal nystagmus with somewhat restricted left horizontal gaze. Face i s symmetric. Tongue and uvula are midline. Motor exam showed normal tone and bulk with 5/5 strength in both upper extremities. There may be mild pronator drift noted on the left upper extremity. She has a 3-4/5 strength in both lower extremities. Sensory: Sensation appears intact. Deep tendon re flexes, brisk reflexes in both upper and lower extremities. Babinski: Plantar responses extensors b ilaterally. Coordination: Dysmetria noted on [id number] on both sides, worse on the left th an the right. LABORATORY DATA: Reviewed, which included CBC and BMP, which is significant for WBC of 22.3, hemoglo bin 9.9, hematocrit 31.3, glucose of 131, otherwise unremarkable. IMAGING DATA: MRI brain without contrast was reviewed which showed multifocal bilateral anterior and posterior circulation ischemic infarct. Some of them are in a watershed zone and others are embolic in appearance. Echocardiogram results were reviewed, which showed very large mass or vegetation in the anterior leaflet of the mitral valve, ejection fraction is 40%-45%. IMPRESSION: 1. Cardioembolic multifocal ischemic infarct. 2. Mitral valve mass/vegetation. Ms. Cleary is a pleasant 52-year-old female who presented with an acute onset of aortic occl usion and underwent aortofemoral bypass surgery following which she was found to have nystagmus and h er MRI does show multifocal bilateral anterior and posterior circulation ischemic infarct. Her echoc ardiogram also shows mitral valve mass or vegetation. This is a likely cause for her embolic stroke. At this time, I would recommend starting patient on anticoagulation therapy. We will continue foll ow further recommendations of Cardiology. Continue PT, OT, speech therapy. No further neurological workup needed from my standpoint. Thank you for consultation.
[2017-11-01] MEDS ORDERED: Iopamidol 370 76% 100 ML VIAL ONE (12:59)
[2017-11-01] MEDS: Acetaminophen/Codeine 30-300mg Tablet PO PRN (19:40)
[2017-11-01] MEDS: Atorvastatin Calcium 40 MG TAB PO SCH (20:00)
[2017-11-01] MEDS: Meclizine HCl 25 MG TAB PO PRN (21:35)
[2017-11-02] MEDS: Acetaminophen/Codeine 30-300mg Tablet PO PRN (00:36)
[2017-11-02 04:35] LABS: Red Blood Cell (RBC) Count 4.21 mill/uL (4.20-5.40); White Blood Cell (WBC) Count 17.2 thou/uL (4.8-10.8)
[2017-11-02 04:36] LABS: Band 3 % (5-11); Eosinophils 2 % (0-10); Hemoglobin 10.6 g/dL (12.0-16.0); Lymphocytes 14 % (21-51); MDiff Complete? YES; Mean Corpuscular HGB CONC 31.4 g/dL (32.0-36.0); Mean Corpuscular Hemoglobin 25.1 pg (27.0-31.0); Mean Corpuscular Volume 80.2 fl (81.0-99.0); Monocytes 3 % (0-10); Neutrophil 78 % (42-75); Platelet Count 443 thou/uL (130-400); RBC Distribution Width 16.2 % (11.5-14.5)
[2017-11-02] MEDS ORDERED: Dexmedetomidine 200 MCG/2 ML VIAL ONE (06:33)
[2017-11-02] MEDS ORDERED: Fentanyl 100 MCG/2 ML VIAL ONE (06:33)
[2017-11-02] MEDS ORDERED: Midazolam HCl 5 mg/5 ml Vial ONE (06:33)
[2017-11-02] MEDS ORDERED: Vecuronium 10 MG VIAL ONE ×3 (06:33→15:26)
[2017-11-02] MEDS ORDERED: Heparin 10,000 UNITS/1 ML VIAL 30,000 UNITS in Sodium Chloride 0.9% 1,000 ML FS SCH (06:45)
[2017-11-02] MEDS ORDERED: CABG-Vancomycin 1.5 GM in Sodium Chloride 0.9% 250 ML 300 ML IVPB SCH (07:00)
[2017-11-02] MEDS ORDERED: Lidocaine 1% (PF) 30 ML VIAL ONE (07:28)
[2017-11-02] MEDS ORDERED: Bisacodyl 10 MG SUPP PR PRN (10:58)
[2017-11-02] MEDS ORDERED: Morphine 4 MG/ML VIAL SLOW IVP PRN (10:58)
[2017-11-02] MEDS ORDERED: Ondansetron HCl/PF 4 MG/2 ML Vial IVP PRN (10:58)
[2017-11-02] MEDS ORDERED: Fentanyl 100 MCG/2 ML VIAL SLOW IVP PRN (10:58)
[2017-11-02] MEDS ORDERED: Promethazine HCl 25 MG/ML VIAL IM PRN (10:58)
[2017-11-02] MEDS ORDERED: hydrALAZINE 20 MG/ML VIAL SLOW IVP PRN (10:58)
[2017-11-02] MEDS ORDERED: DOPamine 400 MG/D5W 250 ML 250 ML IVPB PRN (10:58)
[2017-11-02] MEDS ORDERED: HYDROcodone/Acetaminophen 5/325 mg Tablet PO PRN (10:58)
[2017-11-02] MEDS ORDERED: Mag-Al 1200 mg/1200 mg/30 ML UDCUP PO PRN (10:58)
[2017-11-02] MEDS ORDERED: Hetastarch 6% 500 ML 500 ML IVPB PRN (10:58)
[2017-11-02] MEDS ORDERED: Nitroglycerin 50 MG/250 ML BOT 250 ML IVPB PRN (10:58)
[2017-11-02] MEDS ORDERED: Bisacodyl 5 MG TAB PO PRN (10:58)
[2017-11-02] MEDS ORDERED: Guaifenesin DM 100-10/5 ML UDCUP PO PRN (10:58)
[2017-11-02] MEDS ORDERED: Phenylephrine 10 MG/NS 250 ML 250 ML IVPB PRN (10:58)
[2017-11-02 11:02] LABS: Actual Bicarbonate (HCO3a) 24.7 mEq/L (22-26); CO2 Tension 41.2 mmHg (35.0-45.0); O2 Tension (PaO2) 90.1 mmHg (80.0-100.0)
[2017-11-02 11:03] LABS: Base Excess (BEa) -0.2 mEq/L (0 (+/-) 2.5); Calcium, Ionized 1.1 mmol/L (1.12-1.30); Hematocrit-ABG 26.7 % (36.0-47.0); Hemoglobin (Hb) 8.1 g/dL (12.0-16.0); Puncture Site LINE
[2017-11-02 11:12] LABS: Hemoglobin 9.2 g/dL (12.0-16.0); Mean Corpuscular HGB CONC 31.5 g/dL (32.0-36.0); Mean Corpuscular Hemoglobin 25.2 pg (27.0-31.0); Mean Corpuscular Volume 79.9 fl (81.0-99.0); Mean Platelet Volume 7.9 fL (7.4-10.4); Platelet Count 290 thou/uL (130-400); RBC Distribution Width 15.8 % (11.5-14.5); Red Blood Cell (RBC) Count 3.65 mill/uL (4.20-5.40); White Blood Cell (WBC) Count 18.4 thou/uL (4.8-10.8)
[2017-11-02 11:21] LABS: Anisocytosis SLIGHT = 6-15 cells (100X) (0-5/hpf); Band 3 % (5-11); Hypochromia SLIGHT = 6-15 cells (100X) (0-5/hpf); Lymphocytes 14 % (21-51); MDiff Complete? YES; Microcytosis SLIGHT = 6-15 cells (100X) (0-5/hpf); Monocytes 4 % (0-10); Neutrophil 79 % (42-75); PLT Morphology Comment Appears Adequate
[2017-11-02] MEDS: D5 1/2 NS w/20 mEq KCL 1,000 ML IV SCH (11:25)
[2017-11-02 11:27] LABS: Anion Gap 10 mmol/L (10-20); BUN (Urea Nitrogen) 16 mg/dL (9.8-20.1); Calc. Creatinine Clearance 152 mL/min (70-130); Calcium 7.8 mg/dL (7.8-10.44); Carbon Dioxide 25 mmol/L (22-29); Chloride 105 mmol/L (98-107); Estimated GFR-MDRD Greater than 90; Glucose 113 mg/dL (70-105); Potassium 4.1 mmol/L (3.5-5.1); Sodium 136 mmol/L (136-145)
--- NOTE | 2017-11-02 11:42 | EKG ---
Test Reason : POST CABG Blood Pressure : / mmHG Vent. Rate : 087 BPM Atrial Rate : 087 BPM P-R Int : 162 ms QRS Dur : 078 ms QT Int : 450 ms P-R-T Axes : 075 048 073 degrees QTc Int : 541 ms Normal sinus rhythm Prolonged QT Abnormal ECG When compared with ECG of 28-OCT-2017 19:34, (Unconfirmed) No significant change was found Confirmed by DR. Machelle EVANS (3) on 11/02/2017 11:41:12 AM Referred By: Shahriar BETTENCOURT Confirmed By:DR. Machelle EVANS
[2017-11-02 11:43] LABS: INR-International Normal Ratio 1.3; PTT 28.6 SEC (22.9-36.1)
[2017-11-02] MEDS: Ketorolac Tromethamine 30 MG/ML VIAL IVP SCH ×2 (12:07→17:56)
--- NOTE | 2017-11-02 12:39 | OP ---
DATE OF OPERATION: 11/02/2017 PREOPERATIVE DIAGNOSIS: Left atrial mass, status post multiple embolic events. 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 PROCEDURE: Sternotomy with resection of left atrial mass. SURGEON: Todd Manriquez M.D. ANESTHESIA: General endotracheal - Enriqueta Soria M.D. PUMP TIME: 40 minutes. CROSS-CLAMP TIME: 28 minutes. LOW CORE TEMPERATURE: 34 degrees Celsius. REAL TIME ANALYST: Naomy Ayala. DRAINS: 24-Polish chest tubes x2. DRIPS: None. TRANSFUSIONS: None. DESCRIPTION OF PROCEDURE: After operative consent was obtained, the patient was brought to the operating room and placed in supine position on the operating room table. Appropriate anesthetic monitor was placed and general endotracheal anesthesia induced. Chest, abdomen, and thighs were prepped and draped in usual sterile fashion. Median sternotomy was performed. The patient was systemically heparinized. Thymic fat and pericardium were divided with electrocautery. Pericardial stay sutures were placed. Aortic and bicaval cannulation was performed. Cable tapes were placed. The patient was placed on cardiopulmonary bypass. Aortic cross-clamp was applied and antegrade sanguinous cardioplegic arrest obtained. One liter of antegrade cold [place] cardioplegia was given. Topical cold solution was used. Waterston's groove was developed. CO2 was infused into the pericardial well throughout the open portion of the procedure. Left atrium was sharply entered. Atrial incision was extended superiorly towards the underside of the superior vena cava and inferiorly towards the inferior vena cava. The superior lip of the atrium was retracted and there was an easily visualized large left atrial mass. It was attached to the fossa ovalis, but very small approximately 3 mm stalk. The mass was resected from the fossa ovalis. There was no other debris or other masses located within the atrium. The anterior of the left atrium appeared smooth. The mitral valve had no lesions or evidence of infection or thrombus on it. Limited inspection into the left ventricle again showed no debris or pieces of the mass. Atriotomy was closed in a dual layer running fashion with 4-0 Prolene suture. Prior to completion of closure, the cable tapes were released. The heart was allowed to fill and the patient was ventilated. Suture was then tied and hemostasis ensured. A 24-Polish chest tubes were placed in the mediastinum. The patient was warmed and weaned from cardiopulmonary bypass. Patient was placed in Trendelenburg position and the crossclamp removed. After adequate deairing, the antegrade cardioplegic needle was removed and its pursestring sutures secured. The patient was warmed and weaned from cardiopulmonary bypass. After resumption of sinus rhythm, good hemodynamics, and temperature greater than 36.5, bypass was discontinued. Transfusions were given. Aortic and venous decannulation was performed and the respective pursestring sutures secured. Protamine was administered. Vancomycin paste was placed on the sternal edges. After adequate hemostasis had been obtained, sternum was closed with #7 wire. Sternum was treated with platelet-rich plasma and wires twisted. Wounds were irrigated, treated with platelet-poor plasma, and closed in multiple layers. Needle, sponge, and instrument counts were all reported as correct at the end of the procedure. The patient was transferred to the intensive care unit in stable, but critical condition. TERRIE
[2017-11-02] MEDS ORDERED: Phenylephrine 10 MG/NS 250 ML 250 ML IVPB SCH (13:00)
[2017-11-02] MEDS ORDERED: Phenylephrine HCL 10 MG, Admixture Fee 1 EACH in Sodium Chloride 0.9% 250 ML 250 ML IV SCH (13:00)
--- NOTE | 2017-11-02 13:21 | RAD ---
PORTABLE CHEST ONE VIEW: 11/02/2017 11:00 a.m. HISTORY: Postop open heart surgery. COMPARISON: 10/30/2017 FINDINGS: Interval changes of median sternotomy are seen. A gastrostomy tube is in place with the tip at the l evel of the clavicular heads. A nasogastric tube can be traced into the stomach, with the tip exclud ed from the film. A mediastinal drain and a right-sided chest tube have been placed. A left subclav vielka central line remains in place. No lobar consolidation, pneumothoraces, or large effusions seen. A small left effusion may be present. POS: [facility]
--- NOTE | 2017-11-02 13:47 | PRG ---
DATE OF SERVICE: 11/02/2017 SUBJECTIVE: Ms. Cleary underwent successful surgery today. She is doing well. OBJECTIVE: GENERAL: She is awake and alert. She is off the ventilator. VITAL SIGNS: Blood pressure is in the 90s systolic. Pulse in the 70s sinus. LUNGS: Clear. CARDIAC: Normal S1, normal S2. ASSESSMENT: Status post surgery for large left atrial myxoma. PLAN: Continue supportive care.
[2017-11-02] MEDS ORDERED: Lidocaine 2% PF 100 mg/5 ml Syringe ONE (15:26)
[2017-11-02] MEDS ORDERED: Calcium Chloride 1 GM/10 ML Abboject SYRINGE ONE (15:26)
[2017-11-02] MEDS ORDERED: Albumin 25% 25 GM/100 ML BOT ONE (15:26)
[2017-11-02] MEDS ORDERED: Magnesium 5 GM/10 ML VIAL ONE (15:26)
[2017-11-02] MEDS ORDERED: Heparin 30,000 units/30 ml VIAL ONE (15:26)
[2017-11-02] MEDS ORDERED: Sodium Bicarb 50 MEQ/50 ML Abboject 8.4% SYRINGE ONE (15:26)
[2017-11-02] MEDS ORDERED: Thrombin 5000 UNITS/5 ML VIAL ONE (15:26)
[2017-11-02] MEDS ORDERED: Aminocaproic Acid 5 GM/20 ML VIAL ONE (15:26)
[2017-11-02] MEDS ORDERED: Potassium Chloride 60 MEQ/30 ML VIAL ONE (15:26)
[2017-11-02] MEDS ORDERED: Protamine Sulfate 250 MG/25 ML VIAL ONE (15:26)
[2017-11-02] MEDS ORDERED: PHENYLEPHRINE-NS 100 MCG/ML 10 ML SYRINGE ONE (15:26)
[2017-11-02] MEDS ORDERED: ePHEDrine/0.9% NaCl/PF SYRINGE 50 mg/10 ml ONE (15:26)
[2017-11-02] MEDS ORDERED: Nitroglycerin 50 MG/250 ML BOT ONE (15:26)
[2017-11-02 16:31] LABS: Hemoglobin 8.3 g/dL (12.0-16.0)
[2017-11-02] MEDS: CEFAZOLIN/Water 2 GM/20 ML SYRINGE SLOW IVP SCH (16:37)
[2017-11-02 16:49] LABS: Potassium 3.7 mmol/L (3.5-5.1)
[2017-11-02] MEDS: Potassium Chloride 20 MEQ/100 ML PREMIX BAG IVPB PRN (19:10)
[2017-11-02] MEDS ORDERED: Famotidine/PF 20 mg/2ml Vial SLOW IVP SCH (21:00)
[2017-11-02] MEDS: Fentanyl 100 MCG/2 ML VIAL SLOW IVP PRN (21:05)
[2017-11-02] MEDS: Vancomycin HCl 1.5 GM in Sodium Chloride 0.9% 250 ML 300 ML IVPB SCH (21:07)
[2017-11-02] MEDS: Famotidine 40 MG/4 ML VIAL SLOW IVP SCH (21:07)
[2017-11-02] MEDS: Atorvastatin Calcium 40 MG TAB PO SCH (21:08)
--- NOTE | 2017-11-02 21:48 | PRG ---
DATE OF SERVICE: 11/02/2017 SERVICE: Pulmonary Medicine. INTERVAL HISTORY: The patient is doing fine after her cardiac surgery. She denies any current chest pain, nausea, vomiting, fevers or chills. Outside of a little sternotomy pain. Otherwise, there we re no significant events overnight. A large mass was removed from her atrium. PHYSICAL EXAMINATION: VITAL SIGNS: Afebrile. Pulse 95, blood pressure 84/48, respirations 16, saturation 100% on 30% FiO2 and a PEEP of 5. GENERAL: The patient is awake and alert, in no apparent distress. LUNGS: Decent air entry. There is a slightly prolonged expiratory phase, but no wheezing or rhonchi are appreciated. Minimal crackles are present. HEART: Normal rate, regular. ABDOMEN: Soft, nontender, nondistended. Bowel sounds are positive. MUSCULOSKELETAL: No cyanosis or clubbing. There is no pitting in the bilateral lower extremities. NEUROLOGIC: Grossly nonfocal. LABORATORY DATA: WBC 18.4 following her surgery. Hemoglobin 9.2, platelets 290,000. INR 1.3. A pH of 7.40, pCO2 of 41, pO2 of 90 on 60% FiO2 and a PEEP of 5 at that time. Basic metabolic profile is essentially unremarkable with a creatinine of 0.61. Potassium 3.7. Blood cultures x2 are unremarka ble. IMAGING: Chest x-ray demonstrates interval changes of the median sternotomy. NG tube is in place. Mediastinal drains and right-sided chest tubes are present. Left subclavian central line is in good position. ASSESSMENT: 1. Acute hypoxic respiratory failure, improving. 2. Chronic obstructive pulmonary disease with minimal exacerbation. 3. Peripheral vascular disease, mild. 4. Aortic occlusion, status post aortobifemoral bypass, postop day #4. 5. Left atrial mass, status post excision, postop day #0. 6. Cerebrovascular accident with likely occlusive event in the left cerebellum as well as watershed infarcts throughout the cerebrum. PLAN: She will continue on mechanical ventilation. When she meets criteria and is awake, a CPAP tri al will be initiated, and she will be considered for extubation. Pulmonary Critical Care will contin ue to follow while she remains in the ICU. CRITICAL CARE TIME: 30 minutes.
[2017-11-02] MEDS: HYDROcodone/Acetaminophen 5/325 mg Tablet PO PRN (22:37)
[2017-11-03] MEDS: Ketorolac Tromethamine 30 MG/ML VIAL IVP SCH ×5 (00:17→23:57)
[2017-11-03] MEDS: CEFAZOLIN/Water 2 GM/20 ML SYRINGE SLOW IVP SCH ×2 (00:18→07:34)
[2017-11-03] MEDS: Fentanyl 100 MCG/2 ML VIAL SLOW IVP PRN ×3 (01:48→13:37)
[2017-11-03] MEDS: HYDROcodone/Acetaminophen 5/325 mg Tablet PO PRN ×6 (03:31→23:57)
[2017-11-03 04:15] LABS: Anion Gap 6 mmol/L (10-20); BUN (Urea Nitrogen) 14 mg/dL (9.8-20.1); Calc. Creatinine Clearance 154 mL/min (70-130); Calcium 7.3 mg/dL (7.8-10.44); Carbon Dioxide 27 mmol/L (22-29); Chloride 107 mmol/L (98-107); Estimated GFR-MDRD Greater than 90; Glucose 119 mg/dL (70-105); Potassium 3.6 mmol/L (3.5-5.1); Sodium 136 mmol/L (136-145)
[2017-11-03 04:23] LABS: Band 5 % (5-11); Hemoglobin 8.6 g/dL (12.0-16.0); Lymphocytes 23 % (21-51); MDiff Complete? YES; Mean Corpuscular HGB CONC 31.4 g/dL (32.0-36.0); Mean Corpuscular Hemoglobin 25.4 pg (27.0-31.0); Mean Corpuscular Volume 80.8 fl (81.0-99.0); Metamyelocyte 4 % (0-0); Monocytes 2 % (0-10); Neutrophil 66 % (42-75); PLT Morphology Comment Appears Adequate; Platelet Count 291 thou/uL (130-400); Red Blood Cell (RBC) Count 3.38 mill/uL (4.20-5.40)
[2017-11-03] MEDS ORDERED: Furosemide 40 MG/4 ML VIAL SLOW IVP SCH ×2 (06:00→18:00)
[2017-11-03] MEDS: Potassium Chloride 20 MEQ/100 ML PREMIX BAG IVPB PRN (06:06)
[2017-11-03] MEDS: Aspirin 325 MG TAB PO SCH (07:34)
[2017-11-03] MEDS: Famotidine 40 MG/4 ML VIAL SLOW IVP SCH (07:35)
[2017-11-03] MEDS: Vancomycin HCl 1.5 GM in Sodium Chloride 0.9% 250 ML 300 ML IVPB SCH (08:57)
[2017-11-03] MEDS: D5 1/2 NS w/20 mEq KCL 1,000 ML IV SCH (08:58)
--- NOTE | 2017-11-03 09:10 | RAD ---
SINGLE VIEW OF THE CHEST: COMPARISON: 11/02/17. HISTORY: Status post open heart surgery. FINDINGS: A single view of the chest shows an enlarged cardiomediastinal silhouette. The patient is status pos t sternotomy. The endotracheal tube and NG tube have been removed. The central venous catheter and mediastinal drain and right chest tube are unchanged in position. No pneumothorax is seen. There is no evidence of consolidation, mass, or pleural effusion. IMPRESSION: Cardiomegaly without evidence of acute cardiopulmonary disease. POS: [facility]
--- NOTE | 2017-11-03 09:43 | PRG ---
DATE OF SERVICE: 11/03/2017 SERVICE: Pulmonary Medicine. INTERVAL HISTORY: The patient is doing quite well from a cardiovascular and respiratory standpoint. She denies any chest pain, nausea or vomiting. She is tolerating some p.o. There has been no interval change to her condition. She had no reported events overnight. PHYSICAL EXAMINATION: VITAL SIGNS: Afebrile, pulse 76, blood pressure 97/63, respirations 14, saturation 98% on room air. GENERAL: The patient is awake, alert, no apparent distress. LUNGS: Decent air entry bilaterally. Minimal dependent crackles are present. There is no prolonged expiratory phase. HEART: Normal rate and regular. ABDOMEN: Soft, nontender, and nondistended. Bowel sounds are positive. MUSCULOSKELETAL: No cyanosis or clubbing. There is no pitting in the bilateral lower extremities. NEUROLOGIC: Grossly nonfocal. LABORATORY DATA: WBC 13.0 and down trending, hemoglobin 8.6, platelets 291, 000. Basic metabolic profile is completely unremarkable with a creatinine of 0.6. Blood cultures x2 remain unremarkable. IMAGING: Chest x-ray demonstrates no acute cardiopulmonary abnormality. Sternotomy is noted again. There is a left-sided subclavian central venous catheter that terminates in excellent position. Right-sided chest tube is in place. ASSESSMENT: 1. Acute hypoxic respiratory failure, resolved. 2. Chronic obstructive pulmonary disease with minimal exacerbation. 3. Left atrial mass, likely myxoma, status post sternotomy for removal, postop day #1. 4. Aortic occlusion, status post aortobifemoral bypass, postop day #5. 5. Cerebral vascular accident of the left cerebellum, with watershed infarcts to the bilateral cerebrum. 6. Acute blood loss anemia. 7. Left thigh pain, ischemic nerve pain? PLAN: We will continue routine postop care. She does have complaints of left leg discomfort. I will get an ultrasound of that left leg. We will make certain she is back on DVT prophylaxis. Gabapentin has been started. If the leg discomfort continues and/or progresses, CT of the pelvis, and left thigh will be considered. TERRIE
--- NOTE | 2017-11-03 13:01 | ULT ---
LEFT LOWER EXTREMITY VENOUS ULTRASOUND WITH DOPPLER: HISTORY: The patient has had a previous aortofemoral bypass. Left leg edema, pain, and swelling. COMPARISON: None. TECHNIQUE: Das-scale, color-flow, and Doppler imaging with spectral wave-form analysis is performed of the left lower extremity venous system. FINDINGS: There is compressibility, presence of flow, and augmentation in the common femoral vein, femoral vein , and popliteal vein. there is flow in the greater saphenous vein, popliteal vein, and posterior tib ial vein. The visualized portions of the femoral artery and posterior tibial artery demonstrate trip hasic flow and are patent. Of note, the entire left lower extremity arterial system was not evaluate d. IMPRESSION: No evidence of thrombus in the left lower extremity deep venous system. POS: [facility]
[2017-11-03] MEDS ORDERED: Enoxaparin Sodium 40 MG/0.4 ML SYRINGE SC SCH (17:30)
[2017-11-03] MEDS: Gabapentin 300 MG CAP PO SCH (20:28)
[2017-11-03] MEDS: Atorvastatin Calcium 40 MG TAB PO SCH (20:28)
[2017-11-04 05:17] LABS: Anion Gap 7 mmol/L (10-20); BUN (Urea Nitrogen) 14 mg/dL (9.8-20.1); Calc. Creatinine Clearance 163 mL/min (70-130); Calcium 7.8 mg/dL (7.8-10.44); Carbon Dioxide 31 mmol/L (22-29); Chloride 101 mmol/L (98-107); Estimated GFR-MDRD Greater than 90; Glucose 111 mg/dL (70-105); Potassium 3.7 mmol/L (3.5-5.1); Sodium 135 mmol/L (136-145)
[2017-11-04] MEDS: Ketorolac Tromethamine 30 MG/ML VIAL IVP SCH ×4 (05:58→23:03)
[2017-11-04] MEDS: Potassium Chloride 20 MEQ/100 ML PREMIX BAG IVPB PRN (05:58)
[2017-11-04 06:07] LABS: Band 8 % (5-11); Bite Cells SLIGHT = 2-5 cells (100X) (0-1/hpf); Eosinophils 3 % (0-10); Hemoglobin 9.2 g/dL (12.0-16.0); Hypochromia SLIGHT = 6-15 cells (100X) (0-5/hpf); Lymphocytes 14 % (21-51); MDiff Complete? YES; Mean Corpuscular HGB CONC 31.7 g/dL (32.0-36.0); Mean Corpuscular Hemoglobin 25.4 pg (27.0-31.0); Mean Corpuscular Volume 80.1 fl (81.0-99.0); Mean Platelet Volume 8.2 fL (7.4-10.4); Metamyelocyte 4 % (0-0); Microcytosis SLIGHT = 6-15 cells (100X) (0-5/hpf); Monocytes 3 % (0-10); Myelocyte 1 % (0-0); Neutrophil 67 % (42-75); PLT Morphology Comment Appears Adequate; Platelet Count 318 thou/uL (130-400); RBC Distribution Width 16.4 % (11.5-14.5); Red Blood Cell (RBC) Count 3.64 mill/uL (4.20-5.40); White Blood Cell (WBC) Count 13.3 thou/uL (4.8-10.8)
[2017-11-04] MEDS: Meclizine HCl 25 MG TAB PO PRN (07:23)
[2017-11-04] MEDS: ALPRAZolam 0.5 MG TAB PO PRN (07:24)
[2017-11-04] MEDS ORDERED: Furosemide 20 MG/2 ML VIAL SLOW IVP SCH (07:45)
--- NOTE | 2017-11-04 08:13 | RAD ---
PORTABLE CHEST: Date: 11/04/17 HISTORY: Postop sternotomy. COMPARISON: 11/03/17. FINDINGS/IMPRESSION: Heart size upper normal with postop sternotomy change. Central line is unchanged with tip overlying t he SVC. Hazy infiltrate or atelectasis in the right lower lung is again noted, unchanged from yesterday. No i nterval change noted. POS: [facility]
[2017-11-04] MEDS: Aspirin 325 MG TAB PO SCH (08:49)
[2017-11-04] MEDS: Enoxaparin Sodium 40 MG/0.4 ML SYRINGE SC SCH (08:49)
[2017-11-04] MEDS: Gabapentin 300 MG CAP PO SCH ×3 (08:49→20:18)
[2017-11-04] MEDS: Potassium Chloride 20 MEQ TAB PO SCH ×2 (08:49→18:20)
[2017-11-04] MEDS ORDERED: Polyethylene Glycol 3350 17 GM Packet PO PRN (09:32)
--- NOTE | 2017-11-04 09:35 | PRG ---
DATE OF SERVICE: 11/04/2017 SERVICE: Pulmonary Medicine. INTERVAL HISTORY: The patient is doing fine from a respiratory standpoint. This morning; however, s he had a respiratory event. She started breathing quickly. That being said, we did not have any phy siologic explanation for this. It settled down with a little bit of benzodiazepine. This morning, s he is getting a dose of Lasix, which I fully agree with. PHYSICAL EXAMINATION: VITAL SIGNS: Afebrile, pulse 75, blood pressure 135/75, respirations 13, saturation 100% on room air . GENERAL: The patient is awake, alert, no apparent distress. LUNGS: Decent air entry. There are minimal dependent crackles present. There are some expiratory w heezing, but really not much of a prolonged expiratory phase. Air entry is decent. HEART: Normal rate, regular. ABDOMEN: Soft, nontender, and nondistended. Bowel sounds positive. MUSCULOSKELETAL: No cyanosis or clubbing. There is no pitting in the bilateral lower extremities, t ronal she has trace to 1+ pitting at the sacrum. GENITOURINARY: No Mcgovern. NEUROLOGIC: Grossly nonfocal. LABORATORY DATA: WBC 13.3, hemoglobin 9.2, and platelets 318,000. Band count has increasing gently to 8%. INR 1.3. Bicarbonate 31. Sodium 135. Basic metabolic profile is otherwise unremarkable. B lood cultures x2 are unremarkable. IMAGING: Chest x-ray demonstrates right lower lobe atelectatic plate. Outside of this, I do not cole reciate any acute cardiopulmonary abnormality. There is a left subclavian central venous catheter th at terminates in excellent position. Sternotomy wires are once again noted. ASSESSMENT: 1. Acute hypoxic respiratory failure, resolved. 2. Chronic obstructive pulmonary disease with minimal exacerbation. 3. Left atrial myxoma status post atriotomy, postop day #2. 4. Aortic occlusion, status post aortobifemoral bypass, postop day #5. 5. Cerebrovascular accident of the left cerebellum with other watershed infarcts in the bilateral ce rebrum. PLAN: The patient will be continued on her supportive care. We will work on mobilizing her through the day. I prefer that she stay in the ICU for an additional 24 hours. IV fluids have been interrup curt. We will watch for signs of sepsis. Hopefully, the patient's mentation will continue to slowly improve. Physical therapy has not been coming by. As such, we will replace that consultation once a gain.
[2017-11-04] MEDS ORDERED: Polyethylene Glycol 3350 17 GM Packet PO SCH (09:45)
[2017-11-04] MEDS ORDERED: Senokot S 8.6-50 MG TAB PO SCH (09:45)
[2017-11-04] MEDS: HYDROcodone/Acetaminophen 5/325 mg Tablet PO PRN ×2 (14:13→23:03)
[2017-11-04] MEDS: Furosemide 40 MG/4 ML VIAL SLOW IVP SCH (14:13)
--- NOTE | 2017-11-04 15:36 | PRG ---
DATE OF SERVICE: 11/04/2017 SUBJECTIVE: Ms. Cleary had some dizziness earlier I suspect this is probably vertigo. She is better with that now, she is also short of breath earlier, but she received some diuretics and is doing bett er. OBJECTIVE: VITAL SIGNS: Blood pressure now 128/62, pulse 70. LUNGS: Clear. CARDIAC: Normal S1, normal S2. ASSESSMENT: 1. Mild to moderately depressed left ventricular function. 2. Status post successful removal of large left atrial myxoma. 3. Shortness of breath, improved, probably some degree of pulmonary congestion. PLAN: 1. She received intravenous diuretics today. We will get oral tomorrow. 2. She will receive potassium today and tomorrow. 3. Start lisinopril tomorrow. 4. Also, we would recommend starting carvedilol tomorrow if blood pressure allows.
--- NOTE | 2017-11-04 16:41 | EKG ---
Test Reason : Blood Pressure : / mmHG Vent. Rate : 119 BPM Atrial Rate : 119 BPM P-R Int : 158 ms QRS Dur : 068 ms QT Int : 324 ms P-R-T Axes : 075 076 075 degrees QTc Int : 455 ms Sinus tachycardia Low voltage QRS Borderline ECG When compared with ECG of 28-OCT-2017 15:55, (Unconfirmed) No significant change was found Confirmed by DR. Machelle EVANS (3) on 11/04/2017 4:41:08 PM Referred By: PATRICIA Confirmed By:DR. Machelle EVANS
[2017-11-04] MEDS ORDERED: Potassium Chloride 40 MEQ in Premix Bag 1 BAG IVPB SCH (20:00)
[2017-11-04] MEDS: Senokot S 8.6-50 MG TAB PO SCH (20:18)
[2017-11-04] MEDS: Atorvastatin Calcium 40 MG TAB PO SCH (20:18)
[2017-11-05] MEDS: Ketorolac Tromethamine 30 MG/ML VIAL IVP SCH ×2 (05:11→12:17)
[2017-11-05] MEDS: Furosemide 40 MG/4 ML VIAL SLOW IVP SCH (05:11)
[2017-11-05 05:59] LABS: Anion Gap 5 mmol/L (10-20); BUN (Urea Nitrogen) 18 mg/dL (9.8-20.1); Calc. Creatinine Clearance 152 mL/min (70-130); Carbon Dioxide 30 mmol/L (22-29); Chloride 103 mmol/L (98-107); Estimated GFR-MDRD Greater than 90; Glucose 155 mg/dL (70-105); Potassium 4.4 mmol/L (3.5-5.1); Sodium 134 mmol/L (136-145)
[2017-11-05 06:05] LABS: Band 5 % (5-11); Eosinophils 3 % (0-10); Hemoglobin 9.3 g/dL (12.0-16.0); Hypochromia SLIGHT = 6-15 cells (100X) (0-5/hpf); Lymphocytes 23 % (21-51); MDiff Complete? YES; Mean Corpuscular HGB CONC 31.9 g/dL (32.0-36.0); Mean Corpuscular Hemoglobin 25.6 pg (27.0-31.0); Mean Corpuscular Volume 80.2 fl (81.0-99.0); Mean Platelet Volume 8.1 fL (7.4-10.4); Metamyelocyte 1 % (0-0); Monocytes 4 % (0-10); Neutrophil 64 % (42-75); PLT Morphology Comment Appears Adequate; Platelet Count 397 thou/uL (130-400); RBC Distribution Width 16.8 % (11.5-14.5); Red Blood Cell (RBC) Count 3.63 mill/uL (4.20-5.40); White Blood Cell (WBC) Count 14.8 thou/uL (4.8-10.8)
--- NOTE | 2017-11-05 08:17 | RAD ---
PORTABLE CHEST: Date: 11/05/17 HISTORY: Postop open heart. COMPARISON: 11/04/17. FINDINGS: There is hazy infiltrate in the right lower lung, slightly more prominent today. Left lung remains cl ear. Postop sternotomy changes again noted. Central line is in adequate position overlying the SVC. IMPRESSION: Continued hazy right lower lung infiltrative density. POS: [facility]
[2017-11-05] MEDS: ALPRAZolam 0.5 MG TAB PO PRN (08:39)
[2017-11-05] MEDS: HYDROcodone/Acetaminophen 5/325 mg Tablet PO PRN ×2 (08:40→14:08)
[2017-11-05] MEDS: Aspirin 325 MG TAB PO SCH (08:41)
[2017-11-05] MEDS: Potassium Chloride 20 MEQ TAB PO SCH (08:41)
[2017-11-05] MEDS: Lisinopril 5 MG TAB PO SCH (08:41)
[2017-11-05] MEDS: Gabapentin 300 MG CAP PO SCH ×3 (08:41→21:41)
[2017-11-05] MEDS: Furosemide 20 MG TAB PO SCH (08:42)
[2017-11-05] MEDS: Enoxaparin Sodium 40 MG/0.4 ML SYRINGE SC SCH (08:42)
[2017-11-05] MEDS: Senokot S 8.6-50 MG TAB PO SCH ×2 (08:42→21:41)
--- NOTE | 2017-11-05 10:46 | PRG ---
DATE OF SERVICE: 11/05/2017 SUBJECTIVE: This morning, awake, alert and responsive. No pain, no shortness of breath. PHYSICAL EXAMINATION: VITAL SIGNS: Blood pressure 126/80, sats are 100%, respirations 18, afebrile. CHEST: Decreased breath sounds, no wheezing. CARDIAC: Normal S1, S2, no gallops. ABDOMEN: Soft, without any masses. LABORATORY DATA: White count 14,000, H&H is 9 and 26, platelet count 397. Electrolytes are normal. X-RAY FINDINGS: X-ray shows a small right-sided infiltrate. IMPRESSION: 1. Status post respiratory failure. 2. Chronic obstructive pulmonary disease. 3. Left atrial myxoma status post surgery. 4. Status post aortobifemoral bypass. 5. Cerebrovascular accident. PLAN: The patient appears to be doing well. Continue PT and supportive care. Neb treatments. We will follow.
--- NOTE | 2017-11-05 11:53 | PDOC.CTH ---
Cardiology Progress Note - Subjective No new issues. She is doing well. mentation better as compared to before surgery when I met her for her [facility]. - Objective Vital Signs Temp Pulse Pulse Pulse Resp BP BP 11/05/17 11:00 98.2 F 11/05/17 10:46 89 80 110/62 11/05/17 08:41 87 118/66 11/05/17 08:00 98.0 F 87 17 11/05/17 07:00 98.0 F 11/05/17 06:57 11/05/17 06:54 80 13 11/05/17 04:00 98.0 F 11/05/17 00:00 97.9 F BP Pulse Ox Pulse Ox Pulse Ox 11/05/17 11:00 11/05/17 10:46 126/78 98 96 11/05/17 08:41 11/05/17 08:00 100 11/05/17 07:00 11/05/17 06:57 100 11/05/17 06:54 11/05/17 04:00 11/05/17 00:00 Weight 201 lb 4.513 oz 11/04/17 11/05/17 11/06/17 06:59 06:59 06:59 Intake Total 1385 800 750 Output Total 2455 2038 415 Balance -1070 -1238 335 - Physical Examination General/Neuro: NAD Neck: no JVD present Lungs: CTA, unlabored respirations Heart: RRR Abdomen: NT/ND Extremities: + edema B (trace) - Telemetry Telemetry Rhythm: NSR - Labs Result Diagrams: 11/05/17 05:32 11/05/17 05:32 - Assessment/Plan 1. LA Myxoma, s/p removal 2. Mild LV dysfunction. 3. COPD 4. Aortic occlusion s/p aortobifemoral bypass, secondary to myxoma embolization. 5. Acute CVA secondary to Myxoma embolization PLAN: - Continue BB and ACEI. - Continue post op care. - PT as tolerated.
[2017-11-05] MEDS: Carvedilol 3.125 MG TAB PO SCH (16:47)
[2017-11-05] MEDS ORDERED: Bisacodyl 10 MG SUPP PR PRN (21:22)
[2017-11-05] MEDS ORDERED: Mag-Al 1200 mg/1200 mg/30 ML UDCUP PO PRN (21:22)
[2017-11-05] MEDS ORDERED: Mineral Oil ENEMA PR PRN (21:22)
[2017-11-05] MEDS ORDERED: Bisacodyl 5 MG TAB PO PRN (21:22)
[2017-11-05] MEDS ORDERED: Famotidine 20 MG TAB PO SCH ×2 (21:22→21:30)
[2017-11-05] MEDS: Atorvastatin Calcium 40 MG TAB PO SCH (21:41)
[2017-11-05] MEDS: traMADol HCl 50 MG TAB PO PRN (21:41)
[2017-11-05] MEDS: Acetaminophen/Codeine 30-300mg Tablet PO PRN (22:38)
[2017-11-06] MEDS: Acetaminophen/Codeine 30-300mg Tablet PO PRN ×3 (03:06→17:26)
[2017-11-06] MEDS: traMADol HCl 50 MG TAB PO PRN ×3 (07:42→21:30)
[2017-11-06] MEDS: Gabapentin 300 MG CAP PO SCH ×2 (09:39→21:21)
[2017-11-06] MEDS: Lisinopril 5 MG TAB PO SCH (09:39)
[2017-11-06] MEDS: Aspirin 325 mg Enteric Coated Tablet PO SCH (09:40)
[2017-11-06] MEDS: Carvedilol 3.125 MG TAB PO SCH ×2 (09:40→17:26)
[2017-11-06] MEDS: Enoxaparin Sodium 40 MG/0.4 ML SYRINGE SC SCH (09:40)
[2017-11-06] MEDS: Furosemide 20 MG TAB PO SCH (09:41)
[2017-11-06] MEDS: Famotidine 20 MG TAB PO SCH ×2 (09:41→21:20)
--- NOTE | 2017-11-06 15:08 | PRG ---
DATE OF SERVICE: 11/07/2017 OBJECTIVE: VITAL SIGNS: Sats are 90% on room air, respiration 16, temperature 97, and blood pressure is 121/81. GENERAL: She is better. She is weak. She is walking in the halls. CHEST: Decreased breath sounds, no wheezing. CARDIAC: Normal S1, S2, no gallops. ABDOMEN: Soft. IMPRESSION: 1. Respiratory failure, resolved. 2. Chronic obstructive pulmonary disease. 3. Status post left atrial myxoma surgery. PLAN: Continue PT and supportive care.
--- NOTE | 2017-11-06 16:04 | PDOC.CTH ---
Cardiology Progress Note - Subjective No new issues. - Objective Vital Signs Temp Pulse Pulse Pulse Resp BP BP 11/06/17 11:42 97.5 F L 85 16 11/06/17 09:39 80 11/06/17 08:31 68 88 100/58 L 121/81 11/06/17 08:00 97.9 F 80 16 11/06/17 07:40 97.9 F 80 16 BP Pulse Ox Pulse Ox 11/06/17 11:42 116/85 94 L 11/06/17 09:39 11/06/17 08:31 93 L 11/06/17 08:00 110/61 93 L 11/06/17 07:40 92 L Weight 201 lb 4.513 oz 11/05/17 11/06/17 11/07/17 06:59 06:59 06:59 Intake Total 800 1750 300 Output Total 2038 1640 Balance -1238 110 300 - Physical Examination General/Neuro: NAD Neck: no JVD present Lungs: CTA, unlabored respirations Heart: RRR Abdomen: NT/ND Extremities: + edema B (trace) - Telemetry Telemetry Rhythm: NSR - Labs Result Diagrams: 11/05/17 05:32 11/05/17 05:32 - Assessment/Plan 1. LA Myxoma, s/p removal 2. Mild LV dysfunction. 3. COPD 4. Aortic occlusion s/p aortobifemoral bypass, secondary to myxoma embolization. 5. Acute CVA secondary to Myxoma embolization PLAN: - Continue BB and ACEI. - PT as tolerated.
[2017-11-06] MEDS: Atorvastatin Calcium 40 MG TAB PO SCH (21:20)
[2017-11-07] MEDS: traMADol HCl 50 MG TAB PO PRN ×2 (05:41→11:50)
[2017-11-07] MEDS: Carvedilol 3.125 MG TAB PO SCH ×2 (08:52→16:40)
[2017-11-07] MEDS: Famotidine 20 MG TAB PO SCH ×2 (08:52→20:40)
[2017-11-07] MEDS: Aspirin 325 mg Enteric Coated Tablet PO SCH (08:52)
[2017-11-07] MEDS: Furosemide 20 MG TAB PO SCH (08:52)
[2017-11-07] MEDS: Gabapentin 300 MG CAP PO SCH ×2 (08:53→20:41)
[2017-11-07] MEDS: Enoxaparin Sodium 40 MG/0.4 ML SYRINGE SC SCH (08:53)
[2017-11-07] MEDS: ALPRAZolam 0.5 MG TAB PO PRN (08:53)
[2017-11-07] MEDS: Acetaminophen/Codeine 30-300mg Tablet PO PRN ×3 (08:55→20:40)
[2017-11-07] MEDS ORDERED: PROVENTIL INHALER 6.7 G (200 INHALATIONS) INH SCH (09:30)
--- NOTE | 2017-11-07 09:50 | PRG ---
DATE OF SERVICE: 11/07/2017 Ms. Cleary is sleepy, but wakes up, she is oriented x3. PHYSICAL EXAMINATION: VITAL SIGNS: Her blood pressure is improved 126/73, pulse 80. LUNGS: Clear. CARDIAC: Normal S1 and S2. ABDOMEN: Soft, nontender. EXTREMITIES: There is no edema. ASSESSMENT: 1. Status post removal of a left atrial myxoma. 2. Moderately depressed left ventricular function. PLAN: 1. Resume GEOVANNI inhibitors. 2. Continue beta blockers, increase dose as tolerated. 3. Diuretics.
--- NOTE | 2017-11-07 18:28 | PRG ---
DATE OF SERVICE: 11/07/2017 SERVICE: Pulmonary Medicine. INTERVAL HISTORY: The patient is doing fine from a respiratory standpoint. She is on room air. She denies any current chest pain, nausea, vomiting or shortness of breath. She had a little coughing s aid earlier today. That being said, she has recovered and has returned to her usual state. Otherwis e, things are going well. She is working with physical therapy. She had a fall yesterday, but did n ot have any injuries. PHYSICAL EXAMINATION: VITAL SIGNS: Afebrile, pulse 73, blood pressure 134/75, respirations 18, saturation 96% on room air. GENERAL: The patient is awake and alert, in no apparent distress. LUNGS: Decent air entry bilaterally. There is a minimally prolonged expiratory phase, but no wheezi ng or rhonchi are appreciated. She actually has a prolonged inspiratory phase. HEART: Normal rate, regular. ABDOMEN: Soft, nontender, nondistended. Bowel sounds are positive. MUSCULOSKELETAL: No cyanosis or clubbing. There is no pitting in the bilateral lower extremities. NEUROLOGIC: Grossly nonfocal. ASSESSMENT: 1. Acute hypoxic respiratory failure, resolved. 2. Chronic obstructive pulmonary disease with mild exacerbation, status post steroid and antibiotic medications. 3. Left atrial myxoma, status post atriotomy, postop day #5. 4. Aortic occlusion, status post aortobifemoral bypass, postop day #8. 5. 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 PLAN: The patient is doing fine from a respiratory standpoint. At this point, the patient has no fu rther requirements for inpatient Pulmonary or Critical Care opinion. As such, I will sign off. Plea se call with additional questions or concerns moving forward. I think to be perfectly reasonable to send her out of the hospital on long-acting therapy directed at COPD.
[2017-11-07] MEDS: PROVENTIL INHALER 6.7 G (200 INHALATIONS) INH SCH (20:00)
[2017-11-07] MEDS: Mometasone/Formoterol 120 PUFF INHALER INH SCH (20:01)
[2017-11-07] MEDS: Atorvastatin Calcium 40 MG TAB PO SCH (20:41)
[2017-11-08] MEDS: Acetaminophen/Codeine 30-300mg Tablet PO PRN ×2 (03:21→11:49)
[2017-11-08] MEDS: ALPRAZolam 0.5 MG TAB PO PRN (07:20)
[2017-11-08] MEDS: Mometasone/Formoterol 120 PUFF INHALER INH SCH ×2 (07:25→18:28)
[2017-11-08] MEDS: PROVENTIL INHALER 6.7 G (200 INHALATIONS) INH SCH ×2 (07:25→18:20)
[2017-11-08] MEDS ORDERED: Magnesium Citrate 300 ML BOT PO SCH (08:30)
[2017-11-08] MEDS ORDERED: Furosemide 40 MG TAB PO SCH (09:00)
[2017-11-08] MEDS ORDERED: Lisinopril 2.5 MG TAB PO SCH (09:00)
[2017-11-08] MEDS: Enoxaparin Sodium 40 MG/0.4 ML SYRINGE SC SCH (09:02)
[2017-11-08] MEDS: Aspirin 325 mg Enteric Coated Tablet PO SCH (09:03)
[2017-11-08] MEDS: Carvedilol 3.125 MG TAB PO SCH (09:03)
[2017-11-08] MEDS: Famotidine 20 MG TAB PO SCH ×2 (09:03→21:03)
[2017-11-08] MEDS: Gabapentin 300 MG CAP PO SCH ×2 (09:03→21:04)
--- NOTE | 2017-11-08 09:22 | PRG ---
DATE OF SERVICE: 11/08/2017 HISTORY: Ms. Cleary is awake and alert, feels well. She says her vision is not yet clear. No chest pain or pressure. PHYSICAL EXAMINATION: VITAL SIGNS: Blood pressure 120/80, pulse 78. LUNGS: Clear. CARDIAC: Normal S1, normal S2. ABDOMEN: Soft, nontender. EXTREMITIES: No edema. ASSESSMENT: 1. Status post surgery for left atrial myxoma, which had partially embolized. 2. Moderately depressed left ventricular function. PLAN: 1. Increase carvedilol with tonight's dose. 2. Continue lisinopril. 3. Continue cardiac rehabilitation.
[2017-11-08] MEDS ORDERED: Carvedilol 3.125 MG TAB PO SCH (17:00)
[2017-11-08] MEDS: Budesonide 0.5 MG/2 ML NEB INH SCH (18:24)
[2017-11-08] MEDS: Acetaminophen 325 MG TAB PO PRN (18:42)
[2017-11-08] MEDS: levETIRAcetam 500 MG TAB PO SCH (21:04)
[2017-11-08] MEDS: Atorvastatin Calcium 40 MG TAB PO SCH (21:04)
[2017-11-09] MEDS ORDERED: Sodium Chloride 0.9% 1,000 ML IV SCH ×2 (00:15)
--- NOTE | 2017-11-09 00:42 | PRG ---
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 She was reportedly asymptomatic with a systolic pressure of 50, her pulse was 80 at that time. On my arrival, the patient was in Trendelen shree position. She is awake, alert, having absolutely no complaints. I manually checked her blood p ressure, it was 80/50. Her heart rate is in the 80s. She is receiving a 1-liter bolus. I have orde red a chest x-ray, CBC, basic metabolic pack, ABG. We have held her Lasix, Coreg, and lisinopril. W dalila will follow up on her labs and x-ray and proceed as appropriate. [facility]
[2017-11-09 01:27] LABS: #Eosinphils 0.2 thou/uL (0.0-0.7); #Monocytes 0.9 thou/uL (0.11-0.59); #Neutrophils 10.4 thou/uL (1.40-6.50); %Basophils 0.1 % (0.0-1.0); %Eosinophils 1.2 % (0.0-10.0); %Lymphocytes 15.1 % (21.0-51.0); %Monocytes 6.4 % (0.0-10.0); %Neutrophils 77.3 % (42.0-75.0); Hemoglobin 8.2 g/dL (12.0-16.0); Mean Corpuscular HGB CONC 31.8 g/dL (32.0-36.0); Mean Corpuscular Hemoglobin 25.8 pg (27.0-31.0); Mean Corpuscular Volume 81.2 fl (81.0-99.0); Mean Platelet Volume 7.2 fL (7.4-10.4); Platelet Count 428 thou/uL (130-400); RBC Distribution Width 17.7 % (11.5-14.5); Red Blood Cell (RBC) Count 3.18 mill/uL (4.20-5.40); White Blood Cell (WBC) Count 13.5 thou/uL (4.8-10.8)
[2017-11-09 01:45] LABS: Anion Gap 10 mmol/L (10-20); BUN (Urea Nitrogen) 12 mg/dL (9.8-20.1); Calc. Creatinine Clearance 149 mL/min (70-130); Calcium 7.7 mg/dL (7.8-10.44); Carbon Dioxide 31 mmol/L (22-29); Chloride 101 mmol/L (98-107); Estimated GFR-MDRD 87; Glucose 124 mg/dL (70-105); Sodium 138 mmol/L (136-145)
[2017-11-09 03:29] LABS: Actual Bicarbonate (HCO3a) 29.2 mEq/L (22-26); Base Excess (BEa) 4.7 mEq/L (0 (+/-) 2.5); CO2 Tension 43.5 mmHg (35.0-45.0); Hematocrit-ABG 27.2 % (36.0-47.0); Hemoglobin (Hb) 7.9 g/dL (12.0-16.0); O2 Tension (PaO2) 104.1 mmHg (80.0-100.0); pH, Arterial 7.45 (7.35-7.45)
[2017-11-09 03:30] LABS: Analyzer IN Cardio ER; Calcium, Ionized 1.1 mmol/L (1.12-1.30)
[2017-11-09 03:31] LABS: Puncture Site RRA
[2017-11-09 03:32] LABS: ALV-art Gradient 41.165 (0-20)
[2017-11-09] MEDS: Guaifenesin DM 100-10/5 ML UDCUP PO PRN (04:24)
[2017-11-09] MEDS: ALPRAZolam 0.5 MG TAB PO PRN ×3 (04:38→20:47)
[2017-11-09] MEDS: traMADol HCl 50 MG TAB PO PRN (04:57)
[2017-11-09] MEDS: Budesonide 0.5 MG/2 ML NEB INH SCH ×2 (07:43→18:51)
[2017-11-09] MEDS: PROVENTIL INHALER 6.7 G (200 INHALATIONS) INH SCH ×2 (07:46→18:52)
[2017-11-09] MEDS: Mometasone/Formoterol 120 PUFF INHALER INH SCH ×2 (07:48→18:52)
--- NOTE | 2017-11-09 08:42 | PRG ---
DATE OF SERVICE: 11/09/2017 SUBJECTIVE: Ms. Cleary had a dramatic drop in blood pressure last night. She was given an intravenou s fluid bolus, transferred to the Intensive Care Unit. PHYSICAL EXAMINATION: VITAL SIGNS: Blood pressure is now in the 90s systolic. EYES: Sclerae nonicteric. MOUTH: Mucous branch moist. NECK: Supple. No lymphadenopathy. LUNGS: Clear, no wheezing, rales or rhonchi. CARDIAC: Normal S1, normal S2. EXTREMITIES: Warm, dry. ASSESSMENT: 1. Status post resection of left atrial myxoma following embolization. 2. Hypotensive episode. 3. Mild anemia. PLAN: 1. Agree with giving packed red blood cells. 2. Stop Lovenox and aspirin. 3. Intravenous fluid. 4. We will repeat echocardiogram. She had moderately depressed left ventricular function which was the reason for the lisinopril and carvedilol. We will do the echo to look at the left ventricular fu nction and also to look for any evidence of pericardial fluid.
--- NOTE | 2017-11-09 08:48 | RAD ---
CHEST ONE VIEW: History: Dyspnea. Follow up. Comparison: 11-05-17 FINDINGS: Cardiac silhouette is magnified by projection. Pulmonary vasculature upper limits of normal. Mediasti num is midline with post-operative changes. Left subclavian catheter is no longer apparent. In addition to the hazy opacity at the right base, dense opacity is now apparent, partially obscuring the hemidiaphragm. Less prominent but similar appearing dense opacity is present at the left posteri or lung base. No evidence of pneumothorax. IMPRESSION: Interval appearance of dense bibasilar opacities that may represent atelectasis in the setting of rec ent surgery. Please consider close radiographic follow up with upright PA and lateral views of the est. POS: [facility]
[2017-11-09] MEDS: Famotidine 20 MG TAB PO SCH ×2 (09:18→20:47)
[2017-11-09] MEDS: levETIRAcetam 500 MG TAB PO SCH ×2 (09:19→20:47)
[2017-11-09] MEDS: Acetaminophen/Codeine 30-300mg Tablet PO PRN ×3 (09:19→20:45)
[2017-11-09] MEDS: Gabapentin 300 MG CAP PO SCH ×2 (09:20→20:47)
--- NOTE | 2017-11-09 13:12 | PRG ---
DATE OF SERVICE: 11/09/2017 SERVICE: Pulmonary Medicine. INTERVAL HISTORY: This morning, the patient was asymptomatic, but had a low blood pressure. As such , she was moved back to the ICU. She got some laboratories which looked fairly benign. She was not having any fevers, but she has been coughing up a significant amount of nasty sputum. This is actual ly picking up over the last couple of days. Chest x-ray demonstrated bibasilar infiltrates. PHYSICAL EXAMINATION: VITAL SIGNS: Afebrile, pulse 80, blood pressure 112/57, respirations 10, saturation 98% on room air. GENERAL: The patient is awake, alert, no apparent distress. LUNGS: Rhonchi are present. There is no prolonged expiratory phase, wheezing or crackles. HEART: Normal rate, regular. ABDOMEN: Soft, nontender, nondistended. Bowel sounds are positive. MUSCULOSKELETAL: No cyanosis or clubbing. There is no pitting in the bilateral lower extremities. NEUROLOGIC: Grossly nonfocal. LABORATORY DATA: WBC 13.5, hemoglobin 8.2, platelets 428,000 and up trending. Neutrophil count is i ncreased to 77%. A pH 7.45, pCO2 of 43, pO2 of 104 on 28% via nasal cannula. Bicarbonate 31, basic metabolic profile is completely unremarkable with a creatinine that is essentially normal at 0.7. Bl ood cultures x2 are unremarkable. IMAGING: Chest x-ray demonstrates a dense right lower lobe infiltrate. There is also likely atelect asis versus an infiltrate in the left base. ASSESSMENT: 1. Acute hypoxic respiratory failure, resolved. 2. Healthcare-associated pneumonia. 3. Chronic obstructive pulmonary disease without current exacerbation. 4. Left atrial myxoma, status post atriotomy, postoperative day #6. 5. Aortic occlusion status post aortobifemoral bypass, postoperative #9. 6. 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 PLAN: Collect the sputum sample and empirically start some Zosyn. Mcgovern catheter will be discontinu ed once again. I will make certain physical therapy stays involved and try get her out of bed into a chair 3 times daily. Her blood pressures have firmed up with a little bit of fluid. These will be continued over the next 24 hours while we continue supportive care, and mobilizing her as tolerated. If the sputum grows anything in particular, we will direct her antibiotics to that organism.
[2017-11-09] MEDS: Vancomycin HCl 1.5 GM in Sodium Chloride 0.9% 250 ML 300 ML IVPB SCH (13:44)
[2017-11-09] MEDS: Aztreonam 2 GM in Sodium Chloride 0.9% 100 ML IVPB SCH (13:45)
[2017-11-09] MEDS: Atorvastatin Calcium 40 MG TAB PO SCH (20:47)
[2017-11-10] MEDS: Acetaminophen/Codeine 30-300mg Tablet PO PRN ×4 (01:32→19:15)
[2017-11-10] MEDS: Aztreonam 2 GM in Sodium Chloride 0.9% 100 ML IVPB SCH ×2 (01:33→14:12)
[2017-11-10] MEDS: Vancomycin HCl 1.5 GM in Sodium Chloride 0.9% 250 ML 300 ML IVPB SCH ×2 (01:34→13:10)
[2017-11-10] MEDS: ALPRAZolam 0.5 MG TAB PO PRN ×3 (02:45→21:44)
[2017-11-10 06:03] LABS: #Eosinphils 0.3 thou/uL (0.0-0.7); #Lymphocytes 1.9 thou/uL (1.20-3.40); #Monocytes 0.8 thou/uL (0.11-0.59); %Basophils 0.3 % (0.0-1.0); %Eosinophils 3.1 % (0.0-10.0); %Lymphocytes 16.8 % (21.0-51.0); %Neutrophils 72.8 % (42.0-75.0); Hemoglobin 9.7 g/dL (12.0-16.0); Mean Corpuscular HGB CONC 31.2 g/dL (32.0-36.0); Mean Corpuscular Hemoglobin 25.6 pg (27.0-31.0); Mean Corpuscular Volume 82.2 fl (81.0-99.0); Mean Platelet Volume 7.5 fL (7.4-10.4); Platelet Count 450 thou/uL (130-400); RBC Distribution Width 17.4 % (11.5-14.5); Red Blood Cell (RBC) Count 3.78 mill/uL (4.20-5.40)
[2017-11-10] MEDS: Budesonide 0.5 MG/2 ML NEB INH SCH (07:03)
[2017-11-10] MEDS: Mometasone/Formoterol 120 PUFF INHALER INH SCH ×2 (07:11→19:31)
--- NOTE | 2017-11-10 08:13 | PRG ---
DATE OF SERVICE: 11/10/2017. SUBJECTIVE: Ms. Cleary is somewhat confused, but agreeable to directions. She is sitting up in a oanh ir. She has no chest pain or pressure. PHYSICAL EXAMINATION: VITAL SIGNS: Her blood pressure is 120 systolic, pulse 70s. LUNGS: Clear. CARDIAC: Normal S1, normal S2. ABDOMEN: Soft, nontender. EXTREMITIES: There is no edema. IMAGING: Echocardiogram revealed ejection fraction is 55%-60%. There is a medium sized pericardial effusion, but no evidence of any tamponade. ASSESSMENT: 1. Status post removal of a large left atrial myxoma. 2. Episode of hypotension may be related to carvedilol and lisinopril on top of pericardial effusion . PLAN: 1. In view of the normal ejection fraction, does not need carvedilol or lisinopril. 2. Continue to monitor blood pressure. I suspect the pericardial fluid is inflammatory, does not ne ed to be drained at this point, there is no evidence of any tamponade at this point. However, could have contributed to the drop in blood pressure if she got carvedilol, lisinopril, and she did seem to respond to volume repletion.
[2017-11-10] MEDS: Gabapentin 300 MG CAP PO SCH ×2 (08:17→21:33)
[2017-11-10] MEDS: levETIRAcetam 500 MG TAB PO SCH ×2 (08:17→21:35)
[2017-11-10] MEDS: Famotidine 20 MG TAB PO SCH ×2 (08:18→21:34)
--- NOTE | 2017-11-10 11:34 | PRG ---
DATE OF SERVICE: 11/10/2017 SERVICE: Pulmonary Medicine. INTERVAL HISTORY: The patient is breathing comfortably. She does not have any nausea, vomiting or d iarrhea. She continued to have persistent left side pain. Otherwise, there has been no interval oanh nge to her condition. She does not like working with physical therapy. PHYSICAL EXAMINATION: VITAL SIGNS: Afebrile, pulse 77, blood pressure 122/52, respirations 17, saturation 99% on room air. GENERAL: The patient is awake, alert, in no apparent distress. LUNGS: Reduced air entry with a slightly prolonged expiratory phase. There is a little bit of wheez ing present. Dependent crackles are not present. HEART: Normal rate and regular. ABDOMEN: Soft, nontender, nondistended. Bowel sounds are positive. MUSCULOSKELETAL: No cyanosis or clubbing. No pitting in the bilateral lower extremities. LABORATORY DATA: WBC 11.0, hemoglobin 9.7, and platelets 450,000. Basic metabolic profile is comple tely unremarkable except for bicarbonate that is roughly stable at 31. Blood cultures x4 are unremar kable to date. IMAGING: Echocardiogram demonstrates an ejection fraction that has been changed at 55%-60%. Left at rium is mildly dilated. Structurally normal aortic valve, medium sized pericardial effusion with no evidence of tamponade is present. ASSESSMENT: 1. Acute hypoxic respiratory failure, resolved. 2. Healthcare-associated pneumonia. 3. Chronic obstructive pulmonary disease with acute exacerbation. 4. Left atrial myxoma status post atriotomy, postoperative day #7. 5. Aortic occlusion, status post aortobifemoral bypass, postop day #10. 6. 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 PLAN: The patient can be transitioned once again out of the ICU to the neuro unit. We will continue our empiric aztreonam and vancomycin for the next 24 hours until blood cultures result. If it 2 day s, they remain negative and we have nothing to direct our attention toward, we will switch over to p. o. antibiotics and complete a full course. Pulmonary or Critical Care will continue to follow along.
[2017-11-10] MEDS: PROVENTIL INHALER 6.7 G (200 INHALATIONS) INH SCH ×2 (14:37→18:53)
[2017-11-10] MEDS: Atorvastatin Calcium 40 MG TAB PO SCH (21:34)
[2017-11-11 00:12] LABS: Vancomycin, Trough 17.7 ug/mL
[2017-11-11] MEDS: Aztreonam 2 GM in Sodium Chloride 0.9% 100 ML IVPB SCH ×2 (00:58→13:10)
[2017-11-11] MEDS: Vancomycin HCl 1.5 GM in Sodium Chloride 0.9% 250 ML 300 ML IVPB SCH ×2 (00:58→13:33)
[2017-11-11] MEDS: Acetaminophen/Codeine 30-300mg Tablet PO PRN ×3 (05:46→20:04)
[2017-11-11] MEDS: levETIRAcetam 500 MG TAB PO SCH ×2 (08:42→20:06)
[2017-11-11] MEDS: Famotidine 20 MG TAB PO SCH ×2 (08:42→20:06)
[2017-11-11] MEDS: Gabapentin 300 MG CAP PO SCH ×2 (08:42→20:06)
[2017-11-11] MEDS: PROVENTIL INHALER 6.7 G (200 INHALATIONS) INH SCH ×2 (10:10→18:38)
[2017-11-11] MEDS: Mometasone/Formoterol 120 PUFF INHALER INH SCH ×2 (10:12→18:39)
--- NOTE | 2017-11-11 15:39 | PRG ---
DATE OF SERVICE: 11/11/2017 SERVICE: Pulmonary Medicine. INTERVAL HISTORY: The patient is doing really well from a respiratory standpoint. She is breathing comfortably. She has no chest pain, nausea, vomiting, fevers or chills. Her biggest complaint this morning is that she has exquisite tenderness and sensitivity to touching the great toe on her left fo ot. She remembers that this predated her initial injury by about a month. PHYSICAL EXAMINATION: VITAL SIGNS: Afebrile, pulse 85, blood pressure 123/62, respirations 20, saturation 98% on room air. GENERAL: The patient is awake and alert, in no apparent distress. LUNGS: Decent air entry bilaterally with no prolonged expiratory phase, wheezing, rhonchi or crackle s. HEART: Normal rate, regular. ABDOMEN: Soft, nontender, nondistended. Bowel sounds are positive. MUSCULOSKELETAL: No cyanosis or clubbing. There is 1+ pitting in the bilateral lower extremities. NEUROLOGIC: Grossly nonfocal. LABORATORY DATA: Blood cultures x4 unremarkable. ASSESSMENT: 1. Acute hypoxic respiratory failure, resolved. 2. Healthcare-associated pneumonia. 3. Chronic obstructive pulmonary disease with acute exacerbation. 4. Left atrial myxoma, status post atriotomy, postop day #8. 5. Aortic occlusion, status post aortobifemoral bypass, postop day #11. 6. 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 PLAN: Supportive measures will be continued. From my perspective, she is stable for transition out of the hospital. Once an appropriate care facility is lined up, she can go. Pulmonary will continue to follow while she remains in this location. She has episodes of low blood pressure that come and go. They are completely asymptomatic, but cause concern on the floor, which is the result of her cod e green and for her to move back to the ICU. I will deescalate her antibiotics as we have not discov ered anything at this point. Laboratories will be ordered on a p.r.n. basis.
[2017-11-11] MEDS: traMADol HCl 50 MG TAB PO PRN ×2 (17:08→23:40)
[2017-11-11] MEDS: ALPRAZolam 0.5 MG TAB PO PRN ×2 (17:09→23:40)
[2017-11-11] MEDS: Atorvastatin Calcium 40 MG TAB PO SCH (20:06)
[2017-11-12] MEDS: Vancomycin HCl 1.5 GM in Sodium Chloride 0.9% 250 ML 300 ML IVPB SCH ×3 (01:50→13:18)
[2017-11-12] MEDS: Aztreonam 2 GM in Sodium Chloride 0.9% 100 ML IVPB SCH ×2 (02:55→13:11)
[2017-11-12] MEDS: Acetaminophen/Codeine 30-300mg Tablet PO PRN ×2 (05:47→16:25)
[2017-11-12] MEDS: PROVENTIL INHALER 6.7 G (200 INHALATIONS) INH SCH ×2 (07:58→18:36)
[2017-11-12] MEDS: Mometasone/Formoterol 120 PUFF INHALER INH SCH ×2 (08:02→18:37)
[2017-11-12] MEDS: Gabapentin 300 MG CAP PO SCH ×2 (08:34→20:56)
[2017-11-12] MEDS: Famotidine 20 MG TAB PO SCH ×2 (08:34→20:56)
[2017-11-12] MEDS: levETIRAcetam 500 MG TAB PO SCH ×2 (08:34→20:56)
[2017-11-12] MEDS: traMADol HCl 50 MG TAB PO PRN ×2 (11:13→20:56)
--- NOTE | 2017-11-12 16:35 | PRG ---
DATE OF SERVICE: 11/12/2017. SUBJECTIVE: Ms. Cleary is still mildly confused, but is doing well. PHYSICAL EXAMINATION: VITAL SIGNS: Blood pressure is stable, 142/79, pulse 80. LUNGS: Clear. CARDIAC: Normal S1, normal S2. ASSESSMENT: 1. Status post resection of the myxoma. 2. Depressed left ventricular function, which improved. 3. Episodes of hypotension of unclear etiology. Some of it was probably related to medication and a lso has had a small to medium pericardial effusion. PLAN: Continue current medical regimen and we will probably need some type of placement in a facilit y.
--- NOTE | 2017-11-12 20:01 | PRG ---
DATE OF SERVICE: 11/12/2017 SUBJECTIVE: Ms. Irma Cleary has no complaints. OBJECTIVE: VITAL SIGNS: She is afebrile, heart rate is 79, respiratory rate is 18, oximetry is 96% on room air, blood pressure is 142/79. GENERAL: She is slightly dysarthric. LUNGS: Clear. HEART: Regular rhythm. ABDOMEN: Soft. LABORATORY DATA: There is no new lab. IMPRESSION: 1. Status post resection of a myxoma. 2. Decreased left ventricular systolic function. 3. Small pericardial effusion. 4. Chronic obstructive pulmonary disease exacerbation, it is clinically stable. 5. Aortic occlusion, status post aortobifemoral bypass. 6. History of a cerebrovascular accident involving her cerebral cortex as well as her cerebellum mos t likely embolic. PLAN: Continue supportive care. She could go to the stroke unit given her clinical stability at thi s point. Her potential critical care issues, but there are none at this time. Cultures have been reviewed and are all negative. We will consider cutting back on her antimicrobial therapy in the morning.
[2017-11-12] MEDS: Atorvastatin Calcium 40 MG TAB PO SCH (20:56)
[2017-11-12] MEDS: ALPRAZolam 0.5 MG TAB PO PRN (21:58)
[2017-11-13] MEDS: Vancomycin HCl 1.5 GM in Sodium Chloride 0.9% 250 ML 300 ML IVPB SCH ×2 (00:01→13:47)
[2017-11-13] MEDS: Acetaminophen/Codeine 30-300mg Tablet PO PRN ×3 (00:10→20:01)
[2017-11-13] MEDS: Aztreonam 2 GM in Sodium Chloride 0.9% 100 ML IVPB SCH ×2 (03:09→15:19)
[2017-11-13] MEDS: PROVENTIL INHALER 6.7 G (200 INHALATIONS) INH SCH ×2 (06:53→19:38)
[2017-11-13] MEDS: Mometasone/Formoterol 120 PUFF INHALER INH SCH ×2 (06:55→19:37)
[2017-11-13] MEDS: traMADol HCl 50 MG TAB PO PRN ×2 (07:23→15:13)
[2017-11-13] MEDS: levETIRAcetam 500 MG TAB PO SCH ×2 (08:17→20:01)
[2017-11-13] MEDS: Gabapentin 300 MG CAP PO SCH ×2 (08:18→20:01)
[2017-11-13] MEDS: ALPRAZolam 0.5 MG TAB PO PRN ×2 (08:18→20:00)
[2017-11-13] MEDS: Famotidine 20 MG TAB PO SCH ×2 (08:18→20:00)
[2017-11-13 12:41] LABS: Vancomycin, Trough 18.8 ug/mL
--- NOTE | 2017-11-13 13:57 | PRG ---
DATE OF SERVICE: 11/13/2017 SUBJECTIVE: Ms. Cleary was up most of the night. She received Xanax early this morning and was sleeping throughout most of the morning. OBJECTIVE: VITAL SIGNS: She is afebrile, heart rate is 96, respiratory rate is 20, oximetry is 96 on 3 liters, blood pressure 153/93. LUNGS: Clear. CARDIOVASCULAR: Heart regular rhythm. ABDOMEN: Soft. IMPRESSION: Status post atrial myxoma surgery combined with a surgery for aortic occlusion with embo lic CVAs, clinically stable.
[2017-11-13] MEDS: Atorvastatin Calcium 40 MG TAB PO SCH (20:00)
[2017-11-14] MEDS: Vancomycin HCl 1.5 GM in Sodium Chloride 0.9% 250 ML 300 ML IVPB SCH ×2 (00:51→12:56)
[2017-11-14] MEDS: traMADol HCl 50 MG TAB PO PRN ×3 (02:32→18:42)
[2017-11-14] MEDS: Aztreonam 2 GM in Sodium Chloride 0.9% 100 ML IVPB SCH ×2 (02:34→16:14)
[2017-11-14] MEDS: PROVENTIL INHALER 6.7 G (200 INHALATIONS) INH SCH ×2 (06:46→20:14)
[2017-11-14] MEDS: Mometasone/Formoterol 120 PUFF INHALER INH SCH ×2 (06:48→20:16)
[2017-11-14] MEDS: Famotidine 20 MG TAB PO SCH ×2 (09:16→21:19)
[2017-11-14] MEDS: Gabapentin 300 MG CAP PO SCH ×2 (09:17→21:20)
[2017-11-14] MEDS: levETIRAcetam 500 MG TAB PO SCH ×2 (09:17→21:20)
[2017-11-14] MEDS: Acetaminophen/Codeine 30-300mg Tablet PO PRN ×2 (14:22→22:42)
[2017-11-14] MEDS: ALPRAZolam 0.5 MG TAB PO PRN (16:23)
--- NOTE | 2017-11-14 18:28 | PRG ---
DATE OF SERVICE: 11/14/2017 SERVICE: Pulmonary Medicine. INTERVAL HISTORY: The patient is doing great from a respiratory standpoint. She is breathing comfortably. She has no chest discomfort, nausea, or vomiting. Whenever she breathes then, she is a prolonged inspiratory phase. She has no problem breathing out. She has episodic difficulties with phonating. PHYSICAL EXAMINATION: VITAL SIGNS: Afebrile with T-max of 99.3. Pulse 88, blood pressure 130/77, respirations 20, saturation 92% on room air. GENERAL: The patient is awake, alert, in no apparent distress. LUNGS: Prolonged inspiratory phase. There is no wheezing, rhonchi, or crackles present on expiration. HEART: Normal rate, regular. ABDOMEN: Soft, nontender, nondistended. Bowel sounds are positive. MUSCULOSKELETAL: No cyanosis or clubbing. There is no pitting in the bilateral lower extremities. NEUROLOGIC: Grossly nonfocal. ASSESSMENT: 1. Acute hypoxic respiratory failure, resolved. 2. Healthcare-associated pneumonia, status post day 5/7. 3. Chronic obstructive pulmonary disease with acute exacerbation, status post full course of therapy. 4. Left atrial myxoma, status post atriotomy, postop day #11. 5. Aortic occlusion, status post aortobifemoral bypass, postop day #14. 6. Cerebrovascular accident of the cerebellum, cerebrum, embolic. PLAN: I will consult Ear, Nose, and Throat to consider a laryngoscopy. I will repeat a chest x-ray tomorrow morning. Pulmonary Critical Care will continue to follow along for the time being. She will complete a course of antibiotics on 11/16/2017. Since she is going to be here, I will just simply continue them , but from my perspective, she is stable for transition out of the hospital. TERRIE
[2017-11-14] MEDS: Atorvastatin Calcium 40 MG TAB PO SCH (21:20)
[2017-11-15] MEDS: Vancomycin HCl 1.5 GM in Sodium Chloride 0.9% 250 ML 300 ML IVPB SCH ×2 (00:47→14:02)
[2017-11-15] MEDS: traMADol HCl 50 MG TAB PO PRN ×4 (00:58→21:08)
[2017-11-15] MEDS: Aztreonam 2 GM in Sodium Chloride 0.9% 100 ML IVPB SCH ×2 (02:27→16:52)
[2017-11-15] MEDS: PROVENTIL INHALER 6.7 G (200 INHALATIONS) INH SCH ×2 (06:29→20:24)
[2017-11-15] MEDS: Mometasone/Formoterol 120 PUFF INHALER INH SCH ×2 (06:31→20:27)
[2017-11-15] MEDS: Gabapentin 300 MG CAP PO SCH ×2 (09:15→21:07)
[2017-11-15] MEDS: levETIRAcetam 500 MG TAB PO SCH ×2 (09:15→21:07)
[2017-11-15] MEDS: Famotidine 20 MG TAB PO SCH ×2 (09:16→21:07)
--- NOTE | 2017-11-15 09:27 | RAD ---
AP VIEW OF CHEST: Date: 11/15/17 INDICATION: Infiltrate. COMPARISON: Prior exam dated 11/08/17. FINDINGS: The parenchymal opacity seen within the region of the right lower lobe has improved, but still persis ts. Left lung is clear. Cardiomediastinal silouette is stable. Midline sternotomy changes are similar . No acute osseous abnormality is evident. IMPRESSION: Improved right lower lobe air space opacity superimposed on this frontal projection within the region of the right heart border. Some persistent opacities within this location remain. Continued follow-u p to resolution is recommended. Two view chest radiograph is recommended for improved characterizatio n. POS: [facility]
--- NOTE | 2017-11-15 15:05 | PRG ---
DATE OF SERVICE: 11/15/2017 SERVICE: Pulmonary Medicine. INTERVAL HISTORY: The patient is doing fine from cardiovascular and respiratory standpoint. She denies any current shortness of breath or chest discomfort. She got evaluated by ENT. They are suggesting that she did not have any upper airway issue above the vocal cords. That being said, she continues to have pronounced inspiratory stridor. She denies any chest pain, nausea, vomiting, fevers or chills. PHYSICAL EXAMINATION: VITAL SIGNS: Afebrile, pulse 96, blood pressure 118/92, respirations 15, saturation 99% on room air. GENERAL: The patient is awake and alert, in no apparent distress. LUNGS: Decent air entry with no prolonged expiratory phase. She is a prolonged inspiratory phase with a little stridor. No wheezing or rhonchi are present on exhalation. No crackles are identified. HEART: Normal rate, regular. ABDOMEN: Soft, nontender, nondistended. Bowel sounds are positive. MUSCULOSKELETAL: No cyanosis or clubbing. There is no pitting in the bilateral lower extremities. NEUROLOGIC: Grossly nonfocal. LABORATORY DATA: WBC 11.0, hemoglobin 9.7, platelets 450,000. INR 1.3. Blood cultures x4 unremarkable. IMAGING: Chest x-ray demonstrates improved right lower lobe airspace opacity. Otherwise, no acute cardiopulmonary abnormality. ASSESSMENT: 1. Acute hypoxic respiratory failure, resolved. 2. Healthcare-associated pneumonia, status post day 6 of 7. 3. Chronic obstructive pulmonary disease with acute exacerbation, status post full course of steroid therapy. 4. Left atrial myxoma, status post atriotomy, postoperative day #12. 5. Aortic occlusion, status post aortobifemoral bypass, postoperative day #15. 6. Cerebrovascular accident of the cerebrum and cerebellum, embolic. 7. Stridor. PLAN: Based on the patient's recollection, ENT suggested that there is no obvious evidence of vocal cord issue. We will do a spirometry. If there is characteristic findings of variable in extrathoracic obstruction, bronchoscopy may be considered looking for a tracheal stenosis, and/or tracheomalacia. Certainly if things get worse, she may benefit from noninvasive ventilation with gentle positive airway pressure. Pulmonary Critical Care will continue to follow along. From my perspective; however, if she remains stable, she will be ready for transition out of the hospital tomorrow after she completes her course of antibiotic. Ultimately, she needs a repeat chest x-ray in 4 weeks to document resolution of the infiltrate that is clearing. TERRIE
[2017-11-15] MEDS: Atorvastatin Calcium 40 MG TAB PO SCH (21:06)
[2017-11-15] MEDS: Guaifenesin DM 100-10/5 ML UDCUP PO PRN (21:22)
[2017-11-15] MEDS: ALPRAZolam 0.5 MG TAB PO PRN (22:30)
[2017-11-16] MEDS: Vancomycin HCl 1.5 GM in Sodium Chloride 0.9% 250 ML 300 ML IVPB SCH ×2 (00:09→12:35)
[2017-11-16] MEDS: Aztreonam 2 GM in Sodium Chloride 0.9% 100 ML IVPB SCH ×2 (01:47→14:15)
[2017-11-16] MEDS: Acetaminophen/Codeine 30-300mg Tablet PO PRN ×3 (02:39→23:56)
[2017-11-16] MEDS: Mometasone/Formoterol 120 PUFF INHALER INH SCH ×2 (06:42→20:12)
[2017-11-16] MEDS: PROVENTIL INHALER 6.7 G (200 INHALATIONS) INH SCH ×2 (06:42→20:12)
[2017-11-16] MEDS: traMADol HCl 50 MG TAB PO PRN ×3 (08:13→21:38)
[2017-11-16] MEDS: levETIRAcetam 500 MG TAB PO SCH ×2 (08:19→21:39)
[2017-11-16] MEDS: Famotidine 20 MG TAB PO SCH ×2 (08:19→21:39)
[2017-11-16] MEDS: Gabapentin 300 MG CAP PO SCH ×2 (08:19→21:39)
[2017-11-16] MEDS ORDERED: Dexamethasone 10 MG/ML VIAL SLOW IVP SCH (10:15)
[2017-11-16] MEDS: ALPRAZolam 0.5 MG TAB PO PRN (19:29)
[2017-11-16] MEDS: Atorvastatin Calcium 40 MG TAB PO SCH (21:39)
[2017-11-17] MEDS: PROVENTIL INHALER 6.7 G (200 INHALATIONS) INH SCH ×2 (07:36→19:14)
[2017-11-17] MEDS: Mometasone/Formoterol 120 PUFF INHALER INH SCH ×2 (07:37→19:14)
[2017-11-17] MEDS: traMADol HCl 50 MG TAB PO PRN ×2 (08:32→15:07)
[2017-11-17] MEDS: levETIRAcetam 500 MG TAB PO SCH ×2 (08:33→21:14)
[2017-11-17] MEDS: Famotidine 20 MG TAB PO SCH ×2 (08:33→21:14)
[2017-11-17] MEDS: Gabapentin 300 MG CAP PO SCH ×2 (08:33→21:15)
[2017-11-17] MEDS: ALPRAZolam 0.5 MG TAB PO PRN ×3 (09:49→21:15)
--- NOTE | 2017-11-17 18:50 | PRG ---
DATE OF SERVICE: 11/17/2017 SERVICE: Pulmonary Medicine. INTERVAL HISTORY: The patient is doing outstanding from a cardiovascular and respiratory standpoint. She denies any chest pain, nausea, vomiting, shortness of breath or chest discomfort. Otherwise, t here has been no interval change to her condition. She is breathing comfortably. Interestingly, her stridor has essentially resolved. She is no longer having difficulty breathing on inspiration. PHYSICAL EXAMINATION: VITAL SIGNS: Afebrile, pulse 76, blood pressure 142/78, respirations 18, saturation 100% on room air . GENERAL: The patient is awake and alert, no apparent distress. LUNGS: Excellent air entry without prolonged expiratory phase. No wheezing, rhonchi, or crackles ar e appreciated. HEART: Normal rate and regular. ABDOMEN: Soft, nontender, nondistended. Bowel sounds are positive. MUSCULOSKELETAL: No cyanosis or clubbing. There is no pitting in the bilateral lower extremities. NEUROLOGIC: Grossly nonfocal. ASSESSMENT: 1. Acute hypoxic respiratory failure, resolved. 2. Healthcare-associated pneumonia, status post a 7-day course of antibiotics. 3. Chronic obstructive pulmonary disease with acute exacerbation, status post full course of steroid therapy. 4. Left atrial myxoma, status post atriotomy, postop day #14. 5. Aortic occlusion, status post aortobifemoral bypass, postop day #17. 6. Cerebrovascular accident of the cerebrum and cerebellum, embolic. 7. Stridor, resolved. DISCUSSION AND PLAN: At this point, there is no further requirements for inpatient Pulmonary [facility] opinion once again. As such, I will sign off. She will need to work with physical therapy, i ncrease mobility as much as tolerated. She will require an outpatient chest x-ray in 2 to 4 weeks in the outpatient setting to verify the right middle lobe infiltrate has resolved.
[2017-11-17] MEDS: Acetaminophen/Codeine 30-300mg Tablet PO PRN (19:34)
[2017-11-17] MEDS: Atorvastatin Calcium 40 MG TAB PO SCH (21:15)
[2017-11-18] MEDS: Acetaminophen/Codeine 30-300mg Tablet PO PRN ×3 (05:17→14:47)
[2017-11-18] MEDS: ALPRAZolam 0.5 MG TAB PO PRN ×3 (05:17→17:25)
[2017-11-18] MEDS: PROVENTIL INHALER 6.7 G (200 INHALATIONS) INH SCH ×2 (06:42→18:51)
[2017-11-18] MEDS: Mometasone/Formoterol 120 PUFF INHALER INH SCH ×2 (06:43→18:51)
[2017-11-18] MEDS: Gabapentin 300 MG CAP PO SCH ×2 (07:49→20:30)
[2017-11-18] MEDS: Famotidine 20 MG TAB PO SCH ×2 (07:49→20:30)
[2017-11-18] MEDS: levETIRAcetam 500 MG TAB PO SCH ×2 (07:49→20:30)
[2017-11-18 10:18] LABS: Actual Bicarbonate (HCO3a) 18.9 mEq/L (22-26); Base Excess (BEa) -6.8 mEq/L (0 (+/-) 2.5); CO2 Tension 38.3 mmHg (35.0-45.0); Hemoglobin (Hb) 11.2 g/dL (12.0-16.0); O2 Tension (PaO2) 268.2 mmHg (80.0-100.0); pH, Arterial 7.31 (7.35-7.45)
[2017-11-18 10:19] LABS: Actual Bicarbonate (HCO3a) 20.9 mEq/L (22-26); CO2 Tension 37.4 mmHg (35.0-45.0); Hematocrit-ABG 35.2 % (36.0-47.0); Hemoglobin (Hb) 10.9 g/dL (12.0-16.0); O2 Tension (PaO2) 90.9 mmHg (80.0-100.0); pH, Arterial 7.37 (7.35-7.45)
[2017-11-18 10:19] LABS: Analyzer IN Cardio OR; Calcium, Ionized 1.1 mmol/L (1.12-1.30); Puncture Site ALINE
[2017-11-18 10:20] LABS: Analyzer IN Cardio OR; Calcium, Ionized 1.1 mmol/L (1.12-1.30); Puncture Site ALINE
[2017-11-18 10:20] LABS: Actual Bicarbonate (HCO3a) 20.4 mEq/L (22-26); Base Excess (BEa) -4.3 mEq/L (0 (+/-) 2.5); CO2 Tension 36.2 mmHg (35.0-45.0); Hematocrit-ABG 33.9 % (36.0-47.0); Hemoglobin (Hb) 10.6 g/dL (12.0-16.0); O2 Tension (PaO2) 235.4 mmHg (80.0-100.0); pH, Arterial 7.37 (7.35-7.45)
[2017-11-18 10:21] LABS: Analyzer IN Cardio OR; Calcium, Ionized 1.1 mmol/L (1.12-1.30); Puncture Site ALINE
[2017-11-18 13:33] LABS: Actual Bicarbonate (HCO3a) 25.5 mEq/L (22-26); CO2 Tension 38.1 mmHg (35.0-45.0); O2 Tension (PaO2) 127.7 mmHg (80.0-100.0); pH, Arterial 7.44 (7.35-7.45)
[2017-11-18 13:34] LABS: Analyzer IN Cardio OR; Base Excess (BEa) 1.4 mEq/L (0 (+/-) 2.5); Calcium, Ionized 1.2 mmol/L (1.12-1.30); Hematocrit-ABG 36.6 % (36.0-47.0); Hemoglobin (Hb) 10.6 g/dL (12.0-16.0); Puncture Site ALINE
[2017-11-18 13:35] LABS: Actual Bicarbonate (HCO3a) 23.7 mEq/L (22-26); Base Excess (BEa) 0.1 mEq/L (0 (+/-) 2.5); CO2 Tension 34.3 mmHg (35.0-45.0); Hematocrit-ABG 30.6 % (36.0-47.0); Hemoglobin (Hb) 9.2 g/dL (12.0-16.0); O2 Tension (PaO2) 336.8 mmHg (80.0-100.0); pH, Arterial 7.46 (7.35-7.45)
[2017-11-18 13:36] LABS: Actual Bicarbonate (HCO3a) 27.7 mEq/L (22-26); Base Excess (BEa) 2.2 mEq/L (0 (+/-) 2.5); CO2 Tension 46.9 mmHg (35.0-45.0); Hematocrit-ABG 36.4 % (36.0-47.0); Hemoglobin (Hb) 10.8 g/dL (12.0-16.0); O2 Tension (PaO2) 377.5 mmHg (80.0-100.0); pH, Arterial 7.39 (7.35-7.45)
[2017-11-18 13:36] LABS: Analyzer IN Cardio OR; Calcium, Ionized 1.1 mmol/L (1.12-1.30); Puncture Site ALINE
[2017-11-18 13:37] LABS: Actual Bicarbonate (HCO3a) 25.9 mEq/L (22-26); Base Excess (BEa) 1.5 mEq/L (0 (+/-) 2.5); CO2 Tension 39.9 mmHg (35.0-45.0); Hematocrit-ABG 22.4 % (36.0-47.0); pH, Arterial 7.43 (7.35-7.45)
[2017-11-18 13:37] LABS: Analyzer IN Cardio OR; Puncture Site ALINE
[2017-11-18 13:38] LABS: Analyzer IN Cardio OR; Calcium, Ionized 1.2 mmol/L (1.12-1.30); Puncture Site ALINE
[2017-11-18 13:38] LABS: Actual Bicarbonate (HCO3a) 24.7 mEq/L (22-26); Base Excess (BEa) 0.3 mEq/L (0 (+/-) 2.5); CO2 Tension 38.4 mmHg (35.0-45.0); O2 Tension (PaO2) 211.8 mmHg (80.0-100.0); pH, Arterial 7.43 (7.35-7.45)
[2017-11-18 13:39] LABS: Analyzer IN Cardio OR; Calcium, Ionized 1.1 mmol/L (1.12-1.30); Hematocrit-ABG 27.7 % (36.0-47.0); Hemoglobin (Hb) 8.7 g/dL (12.0-16.0); Puncture Site ALINE
[2017-11-18] MEDS: traMADol HCl 50 MG TAB PO PRN (17:25)
[2017-11-18] MEDS: Atorvastatin Calcium 40 MG TAB PO SCH (20:30)
[2017-11-19] MEDS: traMADol HCl 50 MG TAB PO PRN (02:06)
[2017-11-19] MEDS: ALPRAZolam 0.5 MG TAB PO PRN ×4 (02:06→23:34)
[2017-11-19] MEDS: Mometasone/Formoterol 120 PUFF INHALER INH SCH ×2 (06:50→19:18)
[2017-11-19] MEDS: PROVENTIL INHALER 6.7 G (200 INHALATIONS) INH SCH ×2 (06:50→19:17)
[2017-11-19] MEDS: levETIRAcetam 500 MG TAB PO SCH ×2 (08:08→22:00)
[2017-11-19] MEDS: Gabapentin 300 MG CAP PO SCH ×2 (08:08→22:00)
[2017-11-19] MEDS: Acetaminophen/Codeine 30-300mg Tablet PO PRN (08:08)
[2017-11-19] MEDS: Famotidine 20 MG TAB PO SCH ×2 (08:10→22:00)
[2017-11-19] MEDS: Acetaminophen 325 MG TAB PO PRN ×2 (15:54→22:01)
[2017-11-19] MEDS: Nicotine 21 MG PATCH TOP SCH (16:02)
[2017-11-19] MEDS: Atorvastatin Calcium 40 MG TAB PO SCH (22:00)
[2017-11-20] MEDS: ALPRAZolam 0.5 MG TAB PO PRN ×3 (05:46→21:02)
[2017-11-20] MEDS: Acetaminophen 325 MG TAB PO PRN ×2 (05:46→13:44)
[2017-11-20] MEDS: PROVENTIL INHALER 6.7 G (200 INHALATIONS) INH SCH ×2 (08:11→19:10)
[2017-11-20] MEDS: Mometasone/Formoterol 120 PUFF INHALER INH SCH ×2 (08:11→19:10)
[2017-11-20] MEDS: Famotidine 20 MG TAB PO SCH ×2 (08:22→21:02)
[2017-11-20] MEDS: levETIRAcetam 500 MG TAB PO SCH ×2 (08:23→21:02)
[2017-11-20] MEDS: Gabapentin 300 MG CAP PO SCH ×2 (08:23→21:02)
[2017-11-20] MEDS: Nicotine 21 MG PATCH TOP SCH (16:32)
[2017-11-20] MEDS: traMADol HCl 50 MG TAB PO PRN (18:07)
[2017-11-20] MEDS: Atorvastatin Calcium 40 MG TAB PO SCH (21:02)
[2017-11-21] MEDS: traMADol HCl 50 MG TAB PO PRN ×3 (00:09→14:39)
[2017-11-21] MEDS: Acetaminophen 325 MG TAB PO PRN (03:19)
[2017-11-21] MEDS: PROVENTIL INHALER 6.7 G (200 INHALATIONS) INH SCH ×2 (07:06→19:21)
[2017-11-21] MEDS: Mometasone/Formoterol 120 PUFF INHALER INH SCH ×2 (07:08→19:22)
[2017-11-21] MEDS: Gabapentin 300 MG CAP PO SCH ×2 (09:21→21:53)
[2017-11-21] MEDS: levETIRAcetam 500 MG TAB PO SCH ×2 (09:21→21:53)
[2017-11-21] MEDS: Famotidine 20 MG TAB PO SCH ×2 (09:21→21:53)
[2017-11-21] MEDS: Nicotine 21 MG PATCH TOP SCH (14:40)
[2017-11-21] MEDS: Atorvastatin Calcium 40 MG TAB PO SCH (21:53)
[2017-11-21] MEDS: ALPRAZolam 0.5 MG TAB PO PRN (21:53)
[2017-11-22] MEDS: traMADol HCl 50 MG TAB PO PRN ×3 (05:19→20:57)
[2017-11-22] MEDS: PROVENTIL INHALER 6.7 G (200 INHALATIONS) INH SCH ×2 (06:56→18:18)
[2017-11-22] MEDS: Mometasone/Formoterol 120 PUFF INHALER INH SCH ×2 (06:58→18:21)
[2017-11-22] MEDS: Famotidine 20 MG TAB PO SCH ×2 (09:40→20:56)
[2017-11-22] MEDS: Gabapentin 300 MG CAP PO SCH ×2 (09:40→20:57)
[2017-11-22] MEDS: levETIRAcetam 500 MG TAB PO SCH ×2 (09:40→20:58)
[2017-11-22] MEDS: Nicotine 21 MG PATCH TOP SCH (14:16)
[2017-11-22] MEDS: ALPRAZolam 0.5 MG TAB PO PRN ×2 (14:52→22:20)
[2017-11-22] MEDS: Atorvastatin Calcium 40 MG TAB PO SCH (20:57)
[2017-11-23] MEDS: traMADol HCl 50 MG TAB PO PRN ×3 (06:26→16:50)
[2017-11-23] MEDS: PROVENTIL INHALER 6.7 G (200 INHALATIONS) INH SCH ×2 (07:38→18:23)
[2017-11-23] MEDS: Mometasone/Formoterol 120 PUFF INHALER INH SCH ×2 (07:39→18:24)
[2017-11-23] MEDS: ALPRAZolam 0.5 MG TAB PO PRN ×3 (07:49→22:01)
[2017-11-23] MEDS: levETIRAcetam 500 MG TAB PO SCH ×2 (09:24→20:55)
[2017-11-23] MEDS: Gabapentin 300 MG CAP PO SCH ×2 (09:24→20:55)
[2017-11-23] MEDS: Famotidine 20 MG TAB PO SCH ×2 (09:24→20:55)
--- NOTE | 2017-11-23 14:01 | DIS ---
DATE OF ADMISSION: 10/28/2017 DISCHARGE DIAGNOSES: 11/23/2017 HISTORY OF PRESENT ILLNESS: Ms. Cleary presented to the emergency department via ambulance from [facility] where she had presented earlier in the day in extremis. 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 At presentation, she was blue with severe pain in both legs and ice cold extremities. Af ter intubation, she was transferred here and emergently taken to the operating room. She underwent a ortobifemoral bypass with good result. Postoperatively, echocardiogram was performed due to the natu re and character of the thrombus -- the thrombus appeared more fibrous in nature than clot. On echoc ardiogram it was revealed that she had an intraatrial mass. Cardiac catheterization was negative for any coronary disease. 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 Since that time she has done really fairly well. She had a seizure an d was seen by Neurology and started on Keppra. Otherwise, she has really had no other whamming medic al issues. She is being discharged to a detention because she had a cerebrovascular accident arou nd the time of her presentation which left her with some mental status changes and also very weak. H er sternal incision has had some separation in a couple of areas which is going to be treated with ba citracin until it heals. Her abdominal incision and groin incisions have all healed nicely. She has palpable pedal pulses.
[2017-11-23] MEDS: Nicotine 21 MG PATCH TOP SCH (16:50)
[2017-11-23] MEDS: Carvedilol 3.125 MG TAB PO SCH (16:50)
--- NOTE | 2017-11-23 20:34 | EKG ---
Test Reason : RHY CHG/C-O CHEST PA Blood Pressure : / mmHG Vent. Rate : 081 BPM Atrial Rate : 081 BPM P-R Int : 148 ms QRS Dur : 078 ms QT Int : 392 ms P-R-T Axes : 061 034 063 degrees QTc Int : 455 ms Normal sinus rhythm Normal ECG When compared with ECG of 02-NOV-2017 11:03, QT has shortened Confirmed by MARTIN SERNA, SDana ([id number]) on 11/23/2017 8:34:05 PM Referred By: Shahriar GOMEZ Confirmed By:DR. Sean SALAZAR MD
[2017-11-23] MEDS: Atorvastatin Calcium 40 MG TAB PO SCH (20:55)
[2017-11-24] MEDS: traMADol HCl 50 MG TAB PO PRN ×2 (01:59→08:06)
[2017-11-24] MEDS: ALPRAZolam 0.5 MG TAB PO PRN (03:51)
[2017-11-24] MEDS: PROVENTIL INHALER 6.7 G (200 INHALATIONS) INH SCH (06:05)
[2017-11-24] MEDS: Mometasone/Formoterol 120 PUFF INHALER INH SCH (06:06)
[2017-11-24] MEDS: Gabapentin 300 MG CAP PO SCH (08:07)
[2017-11-24] MEDS: Carvedilol 3.125 MG TAB PO SCH (08:07)
[2017-11-24] MEDS: levETIRAcetam 500 MG TAB PO SCH (08:07)
[2017-11-24] MEDS: Famotidine 20 MG TAB PO SCH (08:07)
[2017-11-24] MEDS ORDERED: Bacitracin Zinc 1 Packet TOP SCH (09:00)
[2017-11-24 11:53] VITALS: BP 100/70; TEMP 98
[2017-11-24 13:17] VITALS: BMI 30.4
== END 2017-11-24 14:19 | DRG 228 ==
LOC: ERS 11:37 → SDC 11:45 → CCU 11:45 → 2SE 11-05 21:15 → CCU 11-09 00:22 → IMCU/EMU 11-11 09:09 → 2SE 11-13 17:33
PROVIDERS: ADMIT Thoracic Surgery (Cardiothoracic Vascular Surgery); ATTEND Thoracic Surgery (Cardiothoracic Vascular Surgery)
PROC: 04C00ZZ Extirpation of Matter from Abdominal Aorta, Open Approach (ICD-10-PCS; principal; 2017-10-28)
PROC: 04100JK Bypass Abdominal Aorta to Bilateral Femoral Arteries with Synthetic Substitute, Open Approach (ICD-10-PCS; 2017-10-28)
PROC: 02B70ZZ Excision of Left Atrium, Open Approach (ICD-10-PCS; 2017-11-02)
PROC: B246ZZ4 Ultrasonography of Right and Left Heart, Transesophageal (ICD-10-PCS; 2017-11-09)
DX: I74.09 Other arterial embolism and thrombosis of abdominal aorta (principal); I63.449 Cerebral infarction due to embolism of unspecified cerebellar artery; I63.432 Cerebral infarction due to embolism of left posterior cerebral artery; J96.01 Acute respiratory failure with hypoxia; J18.9 Pneumonia, unspecified organism; G81.94 Hemiplegia, unspecified affecting left nondominant side; E87.2 Acidosis; J44.1 Chronic obstructive pulmonary disease with (acute) exacerbation; I67.89 Other cerebrovascular disease; D62 Acute posthemorrhagic anemia; J44.0 Chronic obstructive pulmonary disease with (acute) lower respiratory infection; I31.3 Pericardial effusion (noninflammatory); T81.30XA Disruption of wound, unspecified, initial encounter; D15.1 Benign neoplasm of heart; H53.2 Diplopia; E87.5 Hyperkalemia; F17.210 Nicotine dependence, cigarettes, uncomplicated; E83.39 Other disorders of phosphorus metabolism; H55.00 Unspecified nystagmus; R27.8 Other lack of coordination; Y95 Nosocomial condition; I95.2 Hypotension due to drugs; T44.7X5A Adverse effect of beta-adrenoreceptor antagonists, initial encounter; T46.4X5A Adverse effect of angiotensin-converting-enzyme inhibitors, initial encounter; R56.9 Unspecified convulsions; Y83.8 Other surgical procedures as the cause of abnormal reaction of the patient, or of later complication, without mention of misadventure at the time of the procedure; Y92.9 Unspecified place or not applicable; Z88.0 Allergy status to penicillin
CPT/HCPCS: 36415; 36416; 36430; 70551; 71045; 80048; 80061; 80076; 80202; 82805; 83036; 83735; 84100; 85025; 85610; 85730; 86850; 86900; 86901; 87040; 88305; 88307; 93005; 93010; 93306; 93454; 93798; 94002; 94003; 94010; 94150; 94640; 94664; 94727; A4216; C1769; G8978-GP-CL; G8978-GP-CM; G8979-GP-CK; G8987-GO-CL; G8987-GO-CM; G8988-GO-CJ; G8988-GO-CL; G8996-GN-CI; G8996-GN-CJ; G8997-GN-CH; G8997-GN-CI; J1100; J1644; J1650; J1815; J1885; J1940; J2001; J2250; J2270; J2370; J2704; J2720; J3010; J3370; J3475; J3480; J3490; J7050; J7506; J7620; J7626; P9016; P9045; P9047; S0017

== ENCOUNTER 2018-07-15 11:45 | Observation (INO) | payer SELFPAY ==
[2018-07-15 12:31] LABS: #Basophils 0.1 thou/uL (0.0-0.2); #Eosinphils 0.3 thou/uL (0.0-0.7); #Lymphocytes 2.6 thou/uL (1.20-3.40); #Monocytes 0.5 thou/uL (0.11-0.59); #Neutrophils 8.1 thou/uL (1.40-6.50); %Basophils 0.8 % (0.0-1.0); %Eosinophils 2.9 % (0.0-10.0); %Monocytes 4.4 % (0.0-10.0); %Neutrophils 69.9 % (42.0-75.0); Hemoglobin 14.1 g/dL (12.0-16.0); Mean Corpuscular HGB CONC 32.9 g/dL (32.0-36.0); Mean Corpuscular Hemoglobin 27.4 pg (27.0-31.0); Mean Corpuscular Volume 83.4 fL (78.0-98.0); Platelet Count 494 thou/uL (130-400); RBC Distribution Width 14.6 % (11.5-14.5); Red Blood Cell (RBC) Count 5.14 mill/uL (4.20-5.40); White Blood Cell (WBC) Count 11.6 thou/uL (4.8-10.8)
[2018-07-15 12:45] LABS: ALT (SGPT) 25 U/L (8-55); AST (SGOT) 19 U/L (5-34); Albumin 4.1 g/dL (3.5-5.0); Alkaline Phosphatase 102 U/L (40-150); Anion Gap 14 mmol/L (10-20); BUN (Urea Nitrogen) 14 mg/dL (9.8-20.1); Bilirubin, Total 0.3 mg/dL (0.2-1.2); CK (CPK) 23 U/L (29-168); Calc. Creatinine Clearance 0 mL/min (70-130); Calcium 9.3 mg/dL (7.8-10.44); Carbon Dioxide 22 mmol/L (22-29); Chloride 103 mmol/L (98-107); Estimated GFR-MDRD 77; Globulin 3.4 g/dL (2.4-3.5); Glucose 168 mg/dL (70-105); Lipase 12 U/L (8-78); Potassium 4.4 mmol/L (3.5-5.1); Protein, Total 7.5 g/dL (6.0-8.3); Sodium 135 mmol/L (136-145)
--- NOTE | 2018-07-15 14:04 | RAD ---
AP CHEST: INDICATION: Chest pain. FINDINGS: Lungs are clear. Heart and mediastinum appear normal. The patient is postop sternotomy. IMPRESSION: No acute abnormality. POS: [facility]
[2018-07-15] MEDS ORDERED: Lorazepam 2 MG/ML VIAL ONE ×2 (14:29)
--- NOTE | 2018-07-15 15:53 | CT ---
HEAD CT WITHOUT CONTRAST: 07/15/18 COMPARISON: None. HISTORY: Seizure. TECHNIQUE: Axial CT imaging at 5 mm intervals from vertex through the skull base without contrast. FINDINGS: Patchy areas of decreased density noted in the periventricular deep and subcortical white matter sug gesting small vessel disease. Numerous subcentimeter foci of hypodensity noted within bilateral cereb ellar hemispheres suggesting multiple prior infarctions. No intracranial hemorrhage, midline shift or mass effect. Imaged paranasal sinuses and mastoid air cells are well aerated. No displaced calvarial fracture. IMPRESSION: Evidence of significant small vessel disease and multiple prior posterior fossa infarctions. If ther e is clinical concern for acute infarction, brain MRI is advised. POS: [facility]
[2018-07-15 16:00] LABS: Bilirubin Negative (Negative); Blood, Urine Negative (Negative); Clarity CLOUDY (Clear); Glucose, Urine (Dipstick) Negative (Negative); Leukocyte Negative (Negative); Nitrite Positive (Negative); Protein, Urine (Dipstick) Negative (Neg-Trace); Urobilinogen 0.2 mg/dL (0.2-1.0); pH, Urine 6.5 (5.0-9.0)
[2018-07-15 16:06] LABS: Bacteria/HPF 4+ HPF (None Seen); Hyaline Casts/LPF 0-3 HYALINE CAST LPF (0-3 Hyaline); Pathc Cast-AUWi Flag 0.29 (0-2.49)
[2018-07-15 16:18] LABS: Transitional Epithelial 0-3 HPF (0-3)
[2018-07-15 18:10] LABS: Medtox Reader # READER 1
[2018-07-15 18:11] LABS: Amphetamine Not Detected (NotDetected); Barbiturates Screen Not Detected (NotDetected); Benzodiazepine Screen Not Detected (NotDetected); Cocaine Metabolite Screen Not Detected (NotDetected); Medtox Control Line Valid? VALID (VALID); Methadone Not Detected (NotDetected); Methamphetamine Not Detected (NotDetected); Opiate Screen Not Detected (NotDetected); Oxycodone Screen Not Detected (NotDetected); Phencyclidine (PCP) Not Detected (NotDetected); THC/Cannabinoid Screen Not Detected (NotDetected); Tricyclic Screen Not Detected (NotDetected)
[2018-07-15] MEDS ORDERED: Sodium Chloride 0.9% 1,000 ML IV SCH (18:58)
[2018-07-15 19:48] VITALS: BMI 41.1
[2018-07-15] MEDS ORDERED: cefTRIAXone\\ROCEPHIN 2 GM in Sodium Chloride 0.9% 100 ML IVPB SCH (20:00)
[2018-07-15] MEDS ORDERED: Ondansetron ODT 4 MG TAB PO PRN (20:35)
[2018-07-15] MEDS ORDERED: Lorazepam 2 MG/ML VIAL SLOW IVP PRN (20:39)
[2018-07-15] MEDS: Bacitracin Zinc 1 Packet TOP SCH (21:10)
[2018-07-15] MEDS: levETIRAcetam 500 MG TAB PO SCH (21:10)
[2018-07-15] MEDS: Atorvastatin Calcium 40 MG TAB PO SCH (21:11)
--- NOTE | 2018-07-15 21:25 | HP ---
CHIEF COMPLAINT: "Seizures more often." PRIMARY CARE PROVIDER: Ana Thomas. 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 The patient has been nonambulatory since that time, reports that she has had seizures intermittently that have worsened over the past 2 weeks and averaging 4-5 times per week. She does note that the trigger being stress or feeling hot, describes a generalized shaking that lasts about a minute. She states that she is aware of what is happening, however, cannot control it and cannot respond to others during this time. She denies any postictal state or loss of bowel or bladder function. The patient reports that she is generally feeling unwell, "my brain feels like mush" due to the difficulties with equilibrium, balance and weakness, She also has difficulty with answering questions at times. She has not had home health since discharge, but states that she will soon start this. She notes some "electricity burst" on the left side of her chest that has happened twice today, intermittently her left eye feels droopy, her lips feel numb and she has some blurry vision. When she is having a seizure or if her body feels hot she relays coughing, nausea and vomiting. She denies any fevers or chills, denies any precipitant for these symptoms. In the emergency room, the patient had a witnessed generalized shaking that lasted about a minute for which she received 2 mg of Ativan. Hospitalist called for admission. ALLERGIES: PENICILLIN. CURRENT MEDICATIONS: The patient does not have a list nor does she know what is on the list, but states that the list that she had was provided to the emergency room. Per their report: 1. Carvedilol 3.125 mg b.i.d. 2. Atorvastatin 40 mg daily. 3. Trazodone 50 mg two tablets at bedtime. 4. Aspirin 81 mg daily. 5. Gabapentin 300 mg t.i.d. 6. Keppra 750 mg b.i.d. PAST MEDICAL HISTORY: 1. 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 2. Atrial myxoma status post resection, November 2017 3. Cardioembolic stroke with residual weakness, balance problems, loss of sensation in her right side, and other symptoms as noted above. 4. Tobacco abuse. 5. Seizure disorder diagnosed during hospitalization November 2017 PAST SURGICAL HISTORY: 1. Tubal ligation. 2. Atrial myxoma resection. 3. Aortobifemoral bypass. SOCIAL HISTORY: The patient is . She smokes 5 cigarettes per day. Denies any alcohol. Her daughter, Yaquelin Dale, is her medical power of civil litigation attorney and she is a full code. FAMILY HISTORY: Significant for a niece with epilepsy. REVIEW OF SYSTEMS: As noted above. Negative for fevers or chills. Positive for blurring of vision, coughing, nausea, and vomiting if her body is hot, rash above her left eye. States that she scratches that area in her sleep, scratches on her arms from a puppy at home. All remaining review of systems are reviewed and negative. PHYSICAL EXAMINATION: VITAL SIGNS: Blood pressure 91/66, pulse 89, respirations 18, saturations 96% on room air and temperature 98.5. GENERAL: She is awake, alert, responsive, in no apparent distress. Answering questions appropriately. HEENT: Her pupils are equal and round, and reactive to light. No scleral icterus. Oral mucosa is pink, slightly dry. NECK: Supple, nontender. LYMPHATICS: No palpable cervical or supraclavicular lymphadenopathy. LUNGS: Clear to auscultation bilateral. HEART: Normal S1, S2. Regular rate and rhythm. No audible murmurs. ABDOMEN: Soft with present bowel sounds, nontender, nondistended. EXTREMITIES: No clubbing, cyanosis, or edema. 2+ dorsalis pedis pulses. SKIN: Multiple linear abrasions along her right forearm and hand, a few on her left forearm and hand, erythema and abrasions above her left eyebrow, no drainage. No fluctuance or induration. A small area of ulceration. NEUROLOGIC: Cranial nerves 2 through 12 are intact. Her strength is 5- out of 5 in her upper extremities. In her lower extremities, 4+ out of 5 bilateral. 2+ patellar reflexes, biceps reflexes and brachioradialis reflexes. Anlhgm-mr-ypre intact. The patient does have a fine tremor, right arm greater than left. PSYCH: The patient appears euthymic. Good eye contact. Appropriately answering questions and appears older than stated age. LABORATORY DATA: Reviewed. CBC; 11.6, 14.1, 42.8, 494. Chemistry; 135, 4.4, 103, 22, 14, 0.78, 168. LFTs negative. Urine positive nitrite, 11-20 white blood cells, 7-10 squamous cells, 4+ bacteria. Urine tox screen negative. Alcohol negative. EKG is personally reviewed. Sinus rhythm. Normal axis and inverted T-waves and flat T-waves. No ST changes. Brain CT is personally reviewed, which shows significant small-vessel disease, multiple prior posterior fossa infarctions. Chest x-ray is personally reviewed and negative. IMPRESSION: 1. Reported seizures of brief duration in a patient with history of cardioembolic stroke. 2. Weakness and other neurologic changes secondary to above. 3. Dyslipidemia. 4. Hypertension, currently mildly hypotensive. 5. Abrasions secondary to mild trauma along her forehead and arms. 6. Possible urinary tract infection. 7. Tobacco abuse PLAN: 1. Observation status in the hospital. 2. Neurology consultation, increasing her Keppra to 1000 mg twice daily, seizure and fall precautions. 3. PT, OT. 4. Continuing her reported current medications of carvedilol with hold parameters, statin, aspirin. As patient is not feeling well, we will hold her trazodone for now as well as gabapentin and monitor. 5. We will start antibiotic in case of UTI and obtain urine culture. 6. Check a TSH and repeat labs in the morning. 7. Gentle IV fluid hydration. 8. Bacitracin to her skin wounds and monitor. 9. Obtain a home medication list, or the home medications for review/accuracy. 10. Tobacco cessation counseling/resources/encouragement. 11. DVT prophylaxis with SCDs. 12. GI prophylaxis not indicated. 13. Code status is full and surrogate decision maker is her daughter as noted above. The patient is at moderate risk given her age, comorbidities and current presentation. Reviewed the plan of care with the patient and her . No questions or further needs at end of evaluation. Job ID: [id number] [facility]
[2018-07-16 05:24] LABS: #Basophils 0.1 thou/uL (0.0-0.2); #Eosinphils 0.4 thou/uL (0.0-0.7); #Lymphocytes 2.7 thou/uL (1.20-3.40); #Monocytes 0.9 thou/uL (0.11-0.59); %Basophils 0.6 % (0.0-1.0); %Eosinophils 2.9 % (0.0-10.0); %Lymphocytes 22.6 % (21.0-51.0); %Monocytes 7.5 % (0.0-10.0); %Neutrophils 66.4 % (42.0-75.0); Hemoglobin 12.8 g/dL (12.0-16.0); Mean Corpuscular HGB CONC 32.3 g/dL (32.0-36.0); Mean Corpuscular Hemoglobin 27.2 pg (27.0-31.0); Mean Corpuscular Volume 84.2 fL (78.0-98.0); Mean Platelet Volume 8.1 fL (7.4-10.4); Platelet Count 420 thou/uL (130-400); RBC Distribution Width 14.5 % (11.5-14.5); Red Blood Cell (RBC) Count 4.71 mill/uL (4.20-5.40)
[2018-07-16 05:56] LABS: Anion Gap 12 mmol/L (10-20); BUN (Urea Nitrogen) 15 mg/dL (9.8-20.1); Calc. Creatinine Clearance 155 mL/min (70-130); Carbon Dioxide 25 mmol/L (22-29); Chloride 105 mmol/L (98-107); Estimated GFR-MDRD 78; Glucose 141 mg/dL (70-105); Potassium 4.1 mmol/L (3.5-5.1); Sodium 138 mmol/L (136-145)
[2018-07-16] MEDS ORDERED: Carvedilol 3.125 MG TAB PO SCH (08:00)
[2018-07-16] MEDS ORDERED: Aspirin 81 mg Enteric Coated Tablet PO SCH ×2 (09:00→13:15)
[2018-07-16] MEDS: Carvedilol 3.125 MG TAB PO SCH ×2 (09:37→18:45)
[2018-07-16] MEDS: levETIRAcetam 500 MG TAB PO SCH ×2 (09:38→21:25)
[2018-07-16] MEDS: Bacitracin Zinc 1 Packet TOP SCH ×2 (09:39→21:23)
--- NOTE | 2018-07-16 11:00 | CON ---
DATE OF CONSULTATION: 07/16/2018 NEUROLOGIC FOLLOWUP NOTE. CONSULTING PHYSICIAN: Hospitalist Service. IMPRESSION: 1. Recurrent seizures. 2. History of cardioembolic stroke secondary to atrial myxoma. 3. Peripheral vascular disease of the aorta and iliac arteries. PLAN: 1. Increase Keppra to 1000 mg twice a day. 2. Continue aspirin. 3. Office followup. 4. Treatment of urinary tract infection. HISTORY OF PRESENT ILLNESS: Ms. Cleary was admitted yesterday with findings suggestive of urinary tract infection. She reports that her seizures have not been under good control. She has an aura of strange feeling in her head prior to losing consciousness. They developed into a generalized tonic-clonic seizure. It usually takes for about 5 minutes to regain awareness. She reports being compliant with her Keppra. She is without any new focal neurologic symptoms. She seems to be alert and appropriate. Her speech is fluent and clear. Her movements are equal. No abnormal movements were seen. Laboratory studies show white blood cell count of 11.6, hemoglobin of 14.1. Chemistry panel is notable for glucose of 168. Urine showed 11 to 20 white cells with 4+ bacteria, and a toxicology screen was negative. CT scan of the brain showed some chronic white matter ischemic changes bilaterally. Previous MRI of the brain showed large area of infarction involving the left cerebellum and bilateral watershed regions. SUMMARY: This is a middle-aged woman with continued seizures related to a prior ischemic injury. Urinary tract infection may be a bit of an irritant as well. We have increased dose of her medication. We will follow up with her as an outpatient. Job ID: [id number]
[2018-07-16] MEDS: Acetaminophen 325 MG TAB PO PRN (12:30)
[2018-07-16] MEDS ORDERED: Polyethylene Glycol 3350 17 GM Packet PO PRN (13:03)
--- NOTE | 2018-07-16 13:05 | PDOC.PN ---
- Subjective Encounter Start Date: 07/16/18 (f//u seizures) Encounter Start Time: 13:03 Subjective: Pt reports another seizure today - witnessed and brief. c/o muscle pain -: all over after that event. - Objective Resuscitation Status - Order Detail: 07/15/18 20:35 Resuscitation Status Routine Resuscitation Status: FULL: Full Resuscitation Vital Signs & Weight: Vital Signs (12 hours) Temp Pulse Resp BP BP BP Pulse Ox 07/16/18 12:00 98.5 F 74 18 127/66 98 07/16/18 11:15 97.8 F 77 14 127/66 98 07/16/18 08:00 97.5 F L 77 18 122/74 95 07/16/18 04:00 98.0 F 82 18 102/77 95 Weight Weight 262 lb 8 oz I&O: 07/15/18 07/16/18 07/17/18 06:59 06:59 06:59 Intake Total 680 240 Balance 680 240 Result Diagrams: 07/16/18 05:05 07/16/18 05:05 EKG Reviewed by me: Yes (tele - sinus 80's) Phys Exam - Physical Examination Constitutional: NAD Respiratory: no wheezing, no rales, no rhonchi, clear to auscultation bilateral Cardiovascular: RRR, no significant murmur Gastrointestinal: soft, non-tender, no distention, positive bowel sounds abrasions on arm - unchanged. abrasion on left forehead - appears improved Neurological: non-focal, moves all 4 limbs Psychiatric: normal affect Dx/Plan (1) Seizure Code(s): R56.9 - UNSPECIFIED CONVULSIONS Status: Chronic (2) History of stroke Code(s): Z86.73 - PRSNL HX OF TIA (TIA), AND CEREB INFRC W/O RESID DEFICITS Status: Chronic (3) Weakness Code(s): R53.1 - WEAKNESS Status: Chronic (4) Dyslipidemia Code(s): E78.5 - HYPERLIPIDEMIA, UNSPECIFIED Status: Chronic (5) Hypertension Code(s): I10 - ESSENTIAL (PRIMARY) HYPERTENSION Status: Chronic (6) UTI (urinary tract infection) Status: Acute (7) Tobacco abuse Code(s): Z72.0 - TOBACCO USE Status: Chronic - Plan * UTI - follow cx and continue Rocephin started yesterday * resume gabapentin for pt's neuropathy * appreciate Neurology recs - keppra increased last night. If seizures not controlled, will request additional recommendations for management. Pt does need f/u outpatient with Neurology * continue carvedilol at home dosing with hold parameters * increase aspirin to home dose - additional 243 mg now and 325 mg starting tomorrow * bowel meds - no bm in 2 days * pt/ot * * anticipate d/c tomorrow if pt remains stable * dvt prophy -scd's * gi prophy - not indicated * code status full * * reviewed plan of care with patient, no questions or further needs at end of eval.
[2018-07-16] MEDS: Gabapentin 300 MG CAP PO SCH ×2 (14:17→21:25)
--- NOTE | 2018-07-16 17:03 | PDOC.EVN ---
Event Note - Event Note Event Note: Called by RN - pt upset and c/o persistent facial numbness as well as requesting a nicotine patch. Ordered and MRI brain without contrast to eval for new stroke given hx of cardioembolic stroke, and ordered a 14 mg nicotine patch.
[2018-07-16] MEDS: Nicotine 14 MG PATCH TD SCH (18:46)
[2018-07-16] MEDS: Atorvastatin Calcium 40 MG TAB PO SCH (21:25)
[2018-07-16] MEDS: Docusate 100 MG CAP PO SCH (21:26)
[2018-07-17 05:23] LABS: #Basophils 0.1 thou/uL (0.0-0.2); #Eosinphils 0.4 thou/uL (0.0-0.7); #Lymphocytes 3.3 thou/uL (1.20-3.40); #Neutrophils 8.7 thou/uL (1.40-6.50); %Basophils 0.8 % (0.0-1.0); %Lymphocytes 24.6 % (21.0-51.0); %Monocytes 7.5 % (0.0-10.0); Hemoglobin 12.8 g/dL (12.0-16.0); Mean Corpuscular HGB CONC 32.2 g/dL (32.0-36.0); Mean Platelet Volume 7.9 fL (7.4-10.4); Platelet Count 469 thou/uL (130-400); RBC Distribution Width 14.4 % (11.5-14.5); Red Blood Cell (RBC) Count 4.74 mill/uL (4.20-5.40); White Blood Cell (WBC) Count 13.6 thou/uL (4.8-10.8)
[2018-07-17 05:48] LABS: Anion Gap 10 mmol/L (10-20); BUN (Urea Nitrogen) 14 mg/dL (9.8-20.1); Calc. Creatinine Clearance 157 mL/min (70-130); Calcium 8.9 mg/dL (7.8-10.44); Carbon Dioxide 28 mmol/L (22-29); Chloride 105 mmol/L (98-107); Estimated GFR-MDRD 79; Glucose 113 mg/dL (70-105); Potassium 4.2 mmol/L (3.5-5.1); Sodium 139 mmol/L (136-145)
--- NOTE | 2018-07-17 07:54 | PDOC.PN ---
- Subjective Encounter Start Date: 07/17/18 Encounter Start Time: 11:00 Subjective: Patient reports one more seizure at 0400 this AM. Nothing noted in the -: nursing notes. MRI scheduled for today. Patient reports the tingling on -: right side of face has been on and off for 1 month. - Objective Resuscitation Status - Order Detail: 07/15/18 20:35 Resuscitation Status Routine Resuscitation Status: FULL: Full Resuscitation MAR Reviewed: Yes Vital Signs & Weight: Vital Signs (12 hours) Temp Pulse Resp BP Pulse Ox 07/17/18 04:00 97.7 F 69 19 124/73 96 07/17/18 00:00 97.6 F 71 19 132/62 96 07/16/18 20:00 98.4 F 73 19 109/58 L 99 Weight Weight 262 lb 8 oz I&O: 07/16/18 07/17/18 07/18/18 06:59 06:59 06:59 Intake Total 680 780 Balance 680 780 Result Diagrams: 07/17/18 05:02 07/17/18 05:02 Phys Exam - Physical Examination Constitutional: NAD HEENT: moist MMs Respiratory: no wheezing, no rales, no rhonchi Cardiovascular: RRR, no significant murmur Gastrointestinal: soft, positive bowel sounds Musculoskeletal: no edema Neurological: non-focal, moves all 4 limbs Psychiatric: normal affect, A&O x 3 Dx/Plan (1) Seizure Code(s): R56.9 - UNSPECIFIED CONVULSIONS Status: Chronic Comment: one yesterday, none since, Keppra increased and neurology wants patient to f/u in the clinic (2) UTI (urinary tract infection) Status: Acute Comment: Culture pending, Urinalysis not that bad, switch to Omnicef today (3) History of stroke Code(s): Z86.73 - PRSNL HX OF TIA (TIA), AND CEREB INFRC W/O RESID DEFICITS Status: Chronic (4) Dyslipidemia Code(s): E78.5 - HYPERLIPIDEMIA, UNSPECIFIED Status: Chronic (5) Hypertension Code(s): I10 - ESSENTIAL (PRIMARY) HYPERTENSION Status: Chronic (6) Tobacco abuse Code(s): Z72.0 - TOBACCO USE Status: Chronic (7) Weakness Code(s): R53.1 - WEAKNESS Status: Chronic (8) Tingling of face Code(s): R20.2 - PARESTHESIA OF SKIN Status: Acute Comment: Patient complained of it yesterday, but now stating been going on one, MRI today, home if negative - Plan cont current plan of care, continue antibiotics F/u with Dr. Petersen as outpatient. * . - Discharge Day Encounter end time: 11:15
[2018-07-17] MEDS ORDERED: Aspirin 325 mg Enteric Coated Tablet PO SCH (09:00)
[2018-07-17] MEDS ORDERED: Cefdinir 300 MG CAP PO SCH (09:00)
[2018-07-17] MEDS: Bacitracin Zinc 1 Packet TOP SCH (09:18)
[2018-07-17] MEDS: Carvedilol 3.125 MG TAB PO SCH ×2 (09:19→17:34)
[2018-07-17] MEDS: Gabapentin 300 MG CAP PO SCH ×2 (09:19→15:36)
[2018-07-17] MEDS: levETIRAcetam 500 MG TAB PO SCH (09:19)
[2018-07-17] MEDS: Docusate 100 MG CAP PO SCH (09:19)
[2018-07-17] MEDS: Acetaminophen 325 MG TAB PO PRN (12:52)
--- NOTE | 2018-07-17 15:15 | MRI ---
BRAIN MRI NONCONTRAST: Date: 07/17/18 COMPARISON: Head CT 2 days prior. Brain MRI dated 10/30/17. INDICATION: History of seizure, stroke, new onset facial numbness. FINDINGS: No evidence of acute territorial infarction, ventriculomegaly, mass effect, or midline shift. Multifo jaleel signal abnormalities of the bilateral cerebral white matter are again demonstrated. There is tony on artifact limiting evaluation. Several scattered remote bilateral cerebellar hemispheric lacunar in farctions are seen. Visualized paranasal sinuses are clear. There is mild left mastoid fluid. IMPRESSION: 1. No acute territorial infarction or mass effect. 2. Redemonstration of multifocal signal abnormalities of bilateral cerebral hemispheres. Findings ma y be related to stable areas of gliosis from chronic ischemic disease. 3. Multifocal chronic bilateral cerebellar infarctions. POS: [facility]
[2018-07-17 16:15] VITALS: TEMP 98.1
[2018-07-17 17:33] VITALS: BP 118/72
[2018-07-17] MEDS: Nicotine 14 MG PATCH TD SCH (17:34)
[2018-07-17] MEDS ORDERED: levETIRAcetam 500 MG TAB PO SCH (21:00)
--- NOTE | 2018-07-18 11:40 | DIS ---
DATE OF ADMISSION: 07/15/2018 DATE OF DISCHARGE: 07/17/2018 PRIMARY CARE PHYSICIAN: Ana Thomas. ADMITTING DIAGNOSIS: Increased seizure frequency. DIAGNOSES AT DISCHARGE: 1. Seizure disorder with increased seizure frequency. 2. Mild urinary tract infection. 3. History of stroke. 4. Dyslipidemia. 5. Hypertension. 6. Tobacco abuse. 7. Weakness, chronic. PROCEDURES: 1. CT of the brain showing evidence of significant small-vessel disease and multiple prior posterior fossa infarctions. No acute changes. 2. MRI of the brain showing no acute territorial infarction or mass effect, just the old stroke. CONSULTATIONS: Neurology, Dr. Petersen. SUMMARY OF HOSPITAL COURSE: This is a 53-year-old female with a history of seizure disorder caused by previous stroke. She reports that she has been feeling unwell for the last 2 weeks to 2 months with increasing frequency of seizures, used to be a couple of months to once a week or even more often. She has partial seizure generalized shaking and could not control herself and cannot respond. No postictal state. The patient was put in observation. She had a CT scan and MRI as above. Dr. Petersen was consulted. He recommended decreasing her Keppra. She did have about one seizure per day in the hospital. Dr. Petersen did evaluate her in the day of discharge and cleared her for discharge. Follow up in this clinic once her Keppra dose equalizes her body we may consider increasing that more as an outpatient. DISCHARGE MANAGEMENT: Discharged home. Follow with Dr. Petersen in 3 to 4 weeks. ACTIVITY: As tolerated. DIET: Healthy heart low-sodium diet. MEDICATIONS: 1. Keppra 1000 mg twice a day, 60 tablets dispensed. 2. Cefdinir 300 mg twice a day, 8 caps dispensed. 3. Gabapentin 300 mg daily. 4. Aspirin 325 mg daily. 5. Trazodone 100 mg at night. 6. Zyrtec 10 mg daily. 7. Carvedilol 3.125 mg twice a day. 8. Atorvastatin 40 mg at night. Job ID: [id number]
== END 2018-07-17 18:40 | disposition home or self-care (01) ==
LOC: ERS 11:45 → 2SE 17:05
PROVIDERS: ADMIT Family Medicine; ATTEND Family Medicine
DX: G40.409 Other generalized epilepsy and epileptic syndromes, not intractable, without status epilepticus (principal); N39.0 Urinary tract infection, site not specified; I69.351 Hemiplegia and hemiparesis following cerebral infarction affecting right dominant side; I69.398 Other sequelae of cerebral infarction; R20.9 Unspecified disturbances of skin sensation; R26.89 Other abnormalities of gait and mobility; E78.5 Hyperlipidemia, unspecified; I10 Essential (primary) hypertension; F17.210 Nicotine dependence, cigarettes, uncomplicated; R20.2 Paresthesia of skin; S00.81XA Abrasion of other part of head, initial encounter; S40.819A Abrasion of unspecified upper arm, initial encounter; Z79.82 Long term (current) use of aspirin; Z79.899 Other long term (current) drug therapy; Z88.0 Allergy status to penicillin; Z95.820 Peripheral vascular angioplasty status with implants and grafts; Z98.890 Other specified postprocedural states; X58.XXXA Exposure to other specified factors, initial encounter
CPT/HCPCS: 36415; 70450; 70551; 71045; 80048; 80053; 80306; 80307; 81003; 81015; 82550; 83690; 84146; 84443; 84484; 85025; 87086; 90471; 90732; 93005; 94760; 96361; 96374; G0009; G0378; J0696; J2060; J7050

== ENCOUNTER 2019-05-22 12:34 | Observation (INO) | payer SELFPAY ==
[2019-05-22] MEDS ORDERED: Magnevist 469MG/ML 20 ML VIAL ONE (14:04)
[2019-05-22] MEDS ORDERED: Lorazepam 2 MG/ML VIAL SLOW IVP PRN (14:33)
[2019-05-22] MEDS ORDERED: Dextrose 50% Abboject 50 ML SYRINGE SLOW IVP PRN (14:39)
[2019-05-22] MEDS ORDERED: HumaLOG 300 UNITS/3 ML VIAL SC PRN ×2 (14:39)
[2019-05-22] MEDS ORDERED: Dextrose 5% in Water 1,000 ML IV PRN (14:39)
--- NOTE | 2019-05-22 15:39 | HP ---
TIME OF ADMISSION: 1300 hours. CHIEF COMPLAINT: Left-sided weakness and numbness. HISTORY OF PRESENT ILLNESS: Ms. Cleary is a 54-year-old woman with a known history of seizures, who has had grand mal seizure since October 2017. She presents with complaints of left-sided numbness and weakness as well as lethargic appearance ever since she had a recurring seizure yesterday evening. She was firs seen at [facility] and transferred here. The patient apparently has a history of a previous stroke. She was initially diagnosed with seizures in October 2017 and at that time had been started on Keppra. Due to poor control of her seizures, she was switched to Dilantin, which has been working up until the last couple of months. According to her daughter, she has a seizure once a week and sometimes once every other week. In the last several weeks, they have become more frequent again and after having a recurring seizure yesterday she received recommendations to add on Klonopin which was called in to the local pharmacy yesterday. She has not yet started it. The family was alarmed due to persistent numbness involving the left upper and lower extremities. She also appears tired. They state she looks like she normally does right before or right after having a seizure. The patient denies any complaints. She has been in her usual state of health recently. She does not mobilize and is able to transfer with assistance. She has been compliant with medications and has not had any changes with all her other regular medications. REVIEW OF SYSTEMS: She denies having any headaches, but according to her , she did grab on to her head as if she was in significant pain immediately before she had a seizure yesterday. The patient denies any blurred vision, but states she finds it difficult to keep her left eye open. Denies having any fevers, chills, or sweats. No nausea or vomiting. No chest pain, palpitations, or shortness of breath. No abdominal pain. Moving her bowels as normal and denies any urinary symptoms. All other review of systems are negative. PAST MEDICAL HISTORY: 1. Seizure disorder. 2. Coronary artery disease. 3. Hyperlipidemia. 4. Hypertension. 5. Diabetes mellitus, insulin dependent. 6. History of CVA. 7. Walking deficits at baseline. 8. Depression. PAST SURGICAL HISTORY: 1. CABG. 2. Tubal ligation. SOCIAL HISTORY: The patient lives with her family. Not ambulatory at baseline. No alcohol consumption or drug use. She is a current smoker. ALLERGIES: PENICILLIN. CURRENT MEDICATIONS: 1. Carvedilol. 2. Atorvastatin. 3. Trazodone. 4. Aspirin. 5. Gabapentin. 6. Dilantin. PHYSICAL EXAMINATION: GENERAL: The patient appears well developed, well nourished, is in no acute distress. She is resting comfortably in the stretcher. VITAL SIGNS: Temperature 98.1, pulse 66, blood pressure 130/80, respirations 14, O2 saturation 95% on room air. HEENT: Normocephalic and atraumatic. Pupils are equal, round, and reactive to light. Sclerae without icterus. Extraocular movements difficult to assess as patient is unable to open her left eye. She is squinting and unable to follow. Denies any pain. Extraocular movements intact in the right eye. Oropharynx is clear. NECK: Supple. LUNGS: Clear to auscultation bilaterally without wheezes, rales, or rhonchi. CARDIAC: Regular rate and rhythm. ABDOMEN: Obese, soft, nontender, nondistended. Normoactive bowel sounds present. No guarding or rigidity. EXTREMITIES: No lower leg swelling or edema. NEUROLOGIC: Alert and oriented x3. The patient answering questions appropriately. Reduced sensation involving the right side of the face, right upper extremity and right lower extremity, difficulty with fine motor movements in the left hand, sitting, but able to follow commands. Clinical Abstractor strength slightly reduced in the left hand. Power 4/5 in the left lower extremity. No tongue deviation. INVESTIGATIONS: As mentioned above in HPI. IMPRESSION AND PLAN: Ms Cleary is a 54-year-old woman with known history of seizure disorders, who also has had a stroke in the past and has left-sided numbness and weakness since having recurring seizure yesterday evening. She has been referred for management of the following. 1. Cerebrovascular rule out. The patient with left-sided weakness and numbness, which she does not usually have at baseline. CT head unremarkable. MRI brain has been ordered as well as carotid Dopplers. Her last echo was done in November 2017 showing an EF of 55% to 60% with mildly dilated left atrium. She had trace tricuspid regurgitation and a medium-sized pericardial effusion with no evidence of tamponade. PT/OT consulted. Neuro consulted as well. 2. Seizure disorder. The patient on Dilantin and yesterday Klonopin was called in which the patient has not yet started. We will go ahead and start her on Klonopin. She was recommended a dose of 0.5 mg p.o. daily. Further recommendations as per Dr. Petersen. Dilantin level pending. 3. Hypertension. Monitor blood pressure. Resume home medications once verified. 4. Hyperlipidemia. Resume home medications once verified. 5. Diabetes mellitus, insulin-dependent. Resume home medications once verified. Insulin sliding scale initiated. 6. Code status full. Surrogate decision maker is her , Magan Cleary, also her daughter, Kenisha Dale. The patient's case was discussed with Dr. Raymond who agrees with plan of care as described above. Job ID: [id number]
--- NOTE | 2019-05-22 16:33 | MRI ---
Exam: Brain MRI with and without contrast HISTORY: Evaluate for CVA. Difficulty using the left eye. Blurred vision. Altered mental status. COMPARISON: 07/17/2018 FINDINGS: Gradient echo sequence: No hemorrhage Calvarium: Appropriate T1 marrow signal intensity Midline brain parenchyma: Unremarkable Cerebrum:No parenchymal mass, mass effect or midline shift. Age-appropriate atrophy. Cortical schwarz-wh ite matter differentiation is preserved. Stable T2 and FLAIR white matter hyperintensities due to chronic small vessel ischemic change. Ventricles: No evidence of hydrocephalus. Sinuses and mastoid air cells: Adequate aeration Diffusion: Central arterial flow is maintained. Absent restricted diffusion. Postcontrast images: No pathologic enhancement of the brain parenchyma. IMPRESSION: 1. No pathologic enhancement brain parenchyma 2. Absent restricted diffusion. No acute infarct 3. Stable white matter hyperintensities due to chronic small vessel ischemic change.
[2019-05-22 17:20] VITALS: BMI 46.9
[2019-05-22] MEDS: Sodium Chloride 0.9% 1,000 ML IV SCH (17:53)
[2019-05-22] MEDS ORDERED: Acetaminophen 650 MG Suppository PR PRN (18:22)
[2019-05-22] MEDS ORDERED: Ondansetron PF 4 MG/2 ML Vial IVP PRN (18:22)
[2019-05-22] MEDS ORDERED: Ondansetron ODT 4 MG TAB PO PRN (18:22)
[2019-05-22] MEDS ORDERED: clonazePAM 0.5 MG TAB PO SCH (19:30)
[2019-05-22] MEDS: Famotidine/PF 20 mg/2ml Vial SLOW IVP SCH (20:20)
[2019-05-22] MEDS: Atorvastatin Calcium 40 MG TAB PO SCH (20:22)
[2019-05-22] MEDS ORDERED: INSULIN GLARGINE HUM REC ANLOG 40 UNIT SC SCH (21:00)
[2019-05-22] MEDS ORDERED: Atorvastatin Calcium 40 MG TAB PO SCH (21:00)
[2019-05-22] MEDS: traZODone HCl 50 MG TAB PO SCH (21:01)
[2019-05-22] MEDS: Insulin Glargine 40 UNITS in Pre-Filled Syringe 1 EACH SC SCH (21:45)
[2019-05-23 05:01] LABS: #Eosinphils 0.3 thou/uL (0.0-0.7); #Lymphocytes 2.4 thou/uL (1.20-3.40); #Monocytes 0.8 thou/uL (0.11-0.59); #Neutrophils 7.2 thou/uL (1.40-6.50); %Basophils 0.3 % (0.0-1.0); %Eosinophils 2.7 % (0.0-10.0); %Lymphocytes 22.5 % (21.0-51.0); %Monocytes 7.1 % (0.0-10.0); %Neutrophils 67.4 % (42.0-75.0); Hemoglobin 14.5 g/dL (12.0-16.0); Mean Corpuscular HGB CONC 31.9 g/dL (32.0-36.0); Mean Corpuscular Hemoglobin 27.8 pg (27.0-31.0); Mean Corpuscular Volume 87.1 fL (78.0-98.0); Mean Platelet Volume 8.2 fL (7.4-10.4); Platelet Count 382 thou/uL (130-400); RBC Distribution Width 14.9 % (11.5-14.5); White Blood Cell (WBC) Count 10.6 thou/uL (4.8-10.8)
[2019-05-23 05:26] LABS: Anion Gap 11 mmol/L (10-20); BUN (Urea Nitrogen) 10 mg/dL (9.8-20.1); Calc. Creatinine Clearance 207 mL/min (70-130); Calcium 8.6 mg/dL (7.8-10.44); Carbon Dioxide 25 mmol/L (22-29); Cardiac Risk 3.7 (Less than 4.5); Chloride 105 mmol/L (98-107); Cholesterol 118 mg/dl (< 200 Desired); Estimated GFR-MDRD Greater than 90; Glucose 117 mg/dL (70-105); HDL Cholesterol 32 mg/dL (>60 Neg Risk); LDL Cholesterol, Calculated 61 mg/dL; Potassium 4.1 mmol/L (3.5-5.1); Sodium 137 mmol/L (136-145); Triglycerides 127 mg/dL (Less than 150)
[2019-05-23] MEDS: Acetaminophen 325 MG TAB PO PRN ×2 (05:26→09:06)
[2019-05-23] MEDS: Sodium Chloride 0.9% 1,000 ML IV SCH ×2 (06:11→21:29)
[2019-05-23] MEDS: cefTRIAXone\\ROCEPHIN 1 GM in Sodium Chloride 0.9% 100 ML IVPB SCH (09:06)
[2019-05-23] MEDS: Carvedilol 3.125 MG TAB PO SCH ×2 (09:07→18:26)
[2019-05-23] MEDS: Gabapentin 300 MG CAP PO SCH ×3 (09:07→21:20)
[2019-05-23] MEDS: clonazePAM 0.5 MG TAB PO SCH (09:07)
[2019-05-23] MEDS: DULoxetine 30 MG CAP PO SCH (09:07)
[2019-05-23] MEDS: Famotidine/PF 20 mg/2ml Vial SLOW IVP SCH ×2 (09:07→21:21)
[2019-05-23] MEDS: Aspirin 325 MG TAB PO SCH (09:07)
[2019-05-23] MEDS: Loratadine 10 MG TAB PO SCH (09:07)
[2019-05-23] MEDS: Meloxicam 15 MG TAB PO SCH (09:08)
[2019-05-23] MEDS: HumaLOG 300 UNITS/3 ML VIAL SC SCH ×3 (09:17→18:31)
--- NOTE | 2019-05-23 15:38 | PDOC.HOSPP ---
- Subjective Encounter Date: 05/23/19 Encounter Time: 10:33 Subjective: 54 y/o female with DM, seizure disorder, HTN, CAD and prior CVA admitted with decreased responsiveness and left sided weakness after recurrent seizure. Patient reportedly has been having increaseing frequency of seizures lately. Patient is back to baseline mental status and was conversational. - Objective Vital Signs & Weight: Vital Signs (12 hours) Temp Pulse Pulse Pulse Pulse Resp BP 05/23/19 13:08 77 81 119/71 05/23/19 11:31 98.0 F 75 16 05/23/19 08:52 76 76 113/77 05/23/19 07:41 97.7 F 73 18 05/23/19 03:53 97.8 F 75 18 BP BP BP BP Pulse Ox 05/23/19 13:08 146/70 H 146/79 H 05/23/19 11:31 143/72 H 93 L 05/23/19 08:52 138/83 05/23/19 07:41 121/79 95 05/23/19 03:53 129/76 95 Weight Admit Weight 299 lb 8 oz Weight 299 lb 8 oz I&O: 05/22/19 05/23/19 05/24/19 06:59 06:59 06:59 Intake Total 1330 Balance 1330 Result Diagrams: 05/23/19 04:26 05/23/19 04:26 Additional Labs: Accuchecks 05/23/19 05/23/19 05/23/19 11:01 09:03 06:23 POC Glucose 108 134 H 180 H 05/22/19 05/22/19 20:31 18:40 POC Glucose 122 H 83 Hospitalist ROS - Medication Medications: Active Medications Generic Name Dose Route Start Last Admin Trade Name Freq PRN Reason Stop Dose Admin Acetaminophen 650 mg 05/22/19 18:22 05/23/19 09:06 Tylenol PO 650 mg Q4H PRN Administration Headache/Fever/Mild Pain (1-3) Aspirin 325 mg 05/23/19 09:00 05/23/19 09:07 Aspirin PO 325 mg DAILY DAMIEN Administration Atorvastatin Calcium 40 mg 05/22/19 21:00 05/22/19 20:22 Lipitor PO 40 mg HS DAMIEN Administration Carvedilol 3.125 mg 05/23/19 08:00 05/23/19 09:07 Coreg PO 3.125 mg BID-WM DAMIEN Administration Clonazepam 0.5 mg 05/23/19 09:00 05/23/19 09:07 Klonopin PO 0.5 mg DAILY DAMIEN Administration Duloxetine HCl 30 mg 05/23/19 09:00 05/23/19 09:07 Cymbalta PO 30 mg DAILY DAMIEN Administration Famotidine 20 mg 05/22/19 21:00 05/23/19 09:07 Pepcid SLOW IVP 20 mg Q12HR DAMIEN Administration Gabapentin 600 mg 05/23/19 09:00 05/23/19 12:31 Neurontin PO 600 mg 0900,1200,2100 DAMIEN Administration Sodium Chloride 1,000 mls @ 65 mls/hr 05/22/19 14:30 05/23/19 06:11 Normal Saline 0.9% IV 1,000 mls .[id number] DAMIEN Administration Insulin Glargine 40 units/ 0.4 mls @ 0 mls/hr 05/22/19 21:00 05/22/19 21:45 Miscellaneous Medication SC Not Given HS DAMIEN Ceftriaxone Sodium 1 gm/ 100 mls @ 200 mls/hr 05/23/19 09:00 05/23/19 09:06 Sodium Chloride IVPB 100 mls Q24HR DAMIEN Administration Insulin Human Lispro 0 units 05/22/19 14:39 05/23/19 06:26 Humalog SC 2 unit .MILD SLIDING SCALE PRN Administration Mild Correctional Scale Insulin Human Lispro 10 units 05/23/19 07:30 05/23/19 11:33 Humalog SC Not Given AC DAIMEN Loratadine 10 mg 05/23/19 09:00 05/23/19 09:07 Claritin PO 10 mg DAILY DAMIEN Administration Meloxicam 15 mg 05/23/19 09:00 05/23/19 09:08 Mobic PO 15 mg DAILY DAMIEN Administration Trazodone HCl 100 mg 05/22/19 21:00 05/22/19 21:01 Desyrel PO Not Given HS DAMIEN - Exam General Appearance: awake alert General - other findings: morbidly obese Eye: anicteric sclera ENT: moist mucosa ENT - other findings: Normocephalic. small wound on the left forehead along hairline noted Neck: supple Heart: RRR Respiratory: no wheezes, no rales, no ronchi, normal chest expansion Gastrointestinal: soft, non-tender, non-distended, normal bowel sounds Extremities: no cyanosis, no edema Neurological: cranial nerve grossly intact, no focal deficits Musculoskeletal - other findings: deformity of left hand with fixed flexion noted Psychiatric: normal affect, A&O x 3 Hosp A/P (1) Post-ictal hemiplegia Code(s): G83.84 - NIRANJAN'S PARALYSIS (POSTEPILEPTIC) Status: Acute (2) Acute metabolic encephalopathy Code(s): G93.41 - METABOLIC ENCEPHALOPATHY Status: Acute (3) CAD (coronary artery disease) Code(s): I25.10 - ATHSCL HEART DISEASE OF [place] CORONARY ARTERY W/O ANG PCTRS Status: Acute (4) Morbid obesity Code(s): E66.01 - MORBID (SEVERE) OBESITY DUE TO EXCESS CALORIES Status: Acute (5) UTI (urinary tract infection) Status: Acute (6) Hypertension Code(s): I10 - ESSENTIAL (PRIMARY) HYPERTENSION Status: Chronic (7) Seizure Code(s): R56.9 - UNSPECIFIED CONVULSIONS Status: Chronic (8) Tobacco abuse Code(s): Z72.0 - TOBACCO USE Status: Chronic - Plan Start antibiotic therapy with Rocephin. Antiepileptic as per Neurology Diet as tolerated. DC IVF.Increase activity. Awaiti cultures. Follow CBC and BMP
[2019-05-23] MEDS ORDERED: Gabapentin 300 MG CAP PO SCH (17:00)
[2019-05-23] MEDS: Atorvastatin Calcium 40 MG TAB PO SCH (21:21)
[2019-05-23] MEDS: Insulin Glargine 40 UNITS in Pre-Filled Syringe 1 EACH SC SCH (21:21)
[2019-05-23] MEDS: traZODone HCl 50 MG TAB PO SCH (21:21)
[2019-05-23] MEDS ORDERED: Nicotine 14 MG PATCH TD SCH (22:30)
[2019-05-24] MEDS: clonazePAM 0.5 MG TAB PO SCH (08:50)
[2019-05-24] MEDS: Gabapentin 300 MG CAP PO SCH (08:50)
[2019-05-24] MEDS: Loratadine 10 MG TAB PO SCH (08:53)
[2019-05-24] MEDS: Aspirin 325 MG TAB PO SCH (08:53)
[2019-05-24] MEDS: Carvedilol 3.125 MG TAB PO SCH (08:53)
[2019-05-24] MEDS: DULoxetine 30 MG CAP PO SCH (08:53)
[2019-05-24] MEDS: Meloxicam 15 MG TAB PO SCH (08:53)
[2019-05-24] MEDS: HumaLOG 300 UNITS/3 ML VIAL SC SCH (08:54)
[2019-05-24] MEDS ORDERED: Famotidine 20 MG TAB PO SCH (09:00)
[2019-05-24] MEDS ORDERED: cefTRIAXone\\ROCEPHIN 1 GM VIAL ONE (10:07)
[2019-05-24] MEDS: cefTRIAXone\\ROCEPHIN 1 GM in Sodium Chloride 0.9% 100 ML IVPB SCH (10:18)
[2019-05-24 11:31] VITALS: BP 103/70; TEMP 97.8
--- NOTE | 2019-05-25 07:10 | DIS ---
DATE OF ADMISSION: 05/22/2019 DATE OF DISCHARGE: 05/24/2019 PRIMARY CARE PHYSICIAN: Out of town physician. DISCHARGE DIAGNOSES: 1. Acute metabolic encephalopathy. 2. Postictal state. 3. Marco paralysis/postictal hemiplegia. 4. Urinary tract infection. 5. Recurrent seizures. 6. Seizure disorder. 7. Hypertension. 8. Tobacco abuse disorder. 9. Morbid obesity. 10. Diabetes mellitus. 11. Coronary artery disease. CONSULTS: Neurology. HOSPITAL COURSE: A 54-year-old female with known history of seizure disorder, diabetes, hypertension, coronary artery disease and prior CVA admitted with decreased responsiveness and left-sided weakness after recurrent seizures. CT scan of the brain was unremarkable. The patient showed features of urinary tract infection and was started on antibiotics. Neurology consult was obtained and the patient was found to have low Dilantin levels and dose was increased. Hospital course was uncomplicated and there was no further seizures. Mental status improved to baseline and the patient was moving all limbs and was ambulating. Impression of Marco paralysis was made as well as acute metabolic encephalopathy from urinary tract infection. The patient remained stable and was subsequently discharged home. PHYSICAL EXAMINATION: VITAL SIGNS: Temperature 98.1, pulse 72, respiratory rate 17, SpO2 99% on room air, blood pressure is 128/81. GENERAL: Obese female, in no distress. Afebrile. Anicteric. Acyanotic. HEENT: Normocephalic, atraumatic. Oral mucosa is moist. CARDIOVASCULAR: Regular rhythm and rate with normal heart sounds 1 and 2. RESPIRATORY: Fair air entry bilaterally with no crackle or rhonchi or use of accessory muscles. GI: Morbidly obese, soft, nontender, nondistended with normal bowel sounds. EXTREMITIES: Grossly normal looking atraumatic with no edema or erythema. QUARTER SECTION IRONER: Conscious and alert oriented x3 with appropriate mental status. Cranial nerves 2 through 12 are grossly intact. The patient moves all extremities. The patient is ambulant. DISCHARGE CONDITION: Improved. DISCHARGE DISPOSITION: Home. DISCHARGE MEDICATIONS: 1. Tramadol 50 mg p.o. b.i.d. p.r.n. 2. Aspirin 325 mg p.o. daily. 3. Zyrtec 10 mg p.o. daily. 4. Cymbalta 30 mg p.o. daily. 5. Gabapentin 600 mg as directed. 6. NovoLog 10 units subcutaneously with meals. 7. Lantus 40 units subcutaneously at bedtime. 8. Meloxicam 15 mg p.o. daily. 9. Trazodone 100 mg p.o. daily at bedtime. 10. Lipitor 40 mg p.o. daily at bedtime. 11. Coreg 3.125 mg p.o. b.i.d. 12. Cefdinir 300 mg p.o. b.i.d. for 3 days. 13. Phenytoin 300 mg at bedtime and 200 mg in the morning. FOLLOWUP: With PCP in 1 week and with neurologist in 3 to 4 weeks. The patient was instructed not to drive until cleared by neurologist. Job ID: [id number]
== END 2019-05-24 12:22 | disposition home or self-care (01) ==
LOC: ERS 12:34 → 2SE 17:16
PROVIDERS: ADMIT Internal Medicine; ATTEND Internal Medicine
DX: G83.84 Todd's paralysis (postepileptic) (principal); N39.0 Urinary tract infection, site not specified; G93.41 Metabolic encephalopathy; G40.909 Epilepsy, unspecified, not intractable, without status epilepticus; I25.10 Atherosclerotic heart disease of native coronary artery without angina pectoris; E78.5 Hyperlipidemia, unspecified; I10 Essential (primary) hypertension; E11.9 Type 2 diabetes mellitus without complications; F32.9 Major depressive disorder, single episode, unspecified; F17.210 Nicotine dependence, cigarettes, uncomplicated; E66.01 Morbid (severe) obesity due to excess calories; Z68.42 Body mass index [BMI] 45.0-49.9, adult; Z86.73 Personal history of transient ischemic attack (TIA), and cerebral infarction without residual deficits; Z79.1 Long term (current) use of non-steroidal anti-inflammatories (NSAID); Z79.4 Long term (current) use of insulin; Z79.82 Long term (current) use of aspirin; Z79.899 Other long term (current) drug therapy; Z88.0 Allergy status to penicillin; Z95.1 Presence of aortocoronary bypass graft
CPT/HCPCS: 36415; 36416; 70553; 80048; 80061; 80185; 83735; 85025; 87086; 93005; 96361; 96374; 96375; 96376; A9579; G0378; J0696; J1815; J3490; Q2009; S0028

== ENCOUNTER 2019-07-13 09:44 | Observation (INO) | payer OTHER, SELFPAY ==
[2019-07-13 10:29] LABS: #Basophils 0.1 thou/uL (0.0-0.2); #Eosinphils 0.3 thou/uL (0.0-0.7); #Monocytes 0.7 thou/uL (0.11-0.59); #Neutrophils 7.1 thou/uL (1.40-6.50); %Basophils 0.5 % (0.0-1.0); %Eosinophils 2.8 % (0.0-10.0); %Lymphocytes 26.7 % (21.0-51.0); %Monocytes 6.5 % (0.0-10.0); %Neutrophils 63.5 % (42.0-75.0); Hemoglobin 14.9 g/dL (12.0-16.0); Mean Corpuscular HGB CONC 32.2 g/dL (32.0-36.0); Mean Corpuscular Hemoglobin 28.2 pg (27.0-31.0); Mean Corpuscular Volume 87.7 fL (78.0-98.0); Mean Platelet Volume 7.8 fL (7.4-10.4); Platelet Count 436 thou/uL (130-400); RBC Distribution Width 14.7 % (11.5-14.5); Red Blood Cell (RBC) Count 5.27 mill/uL (4.20-5.40); White Blood Cell (WBC) Count 11.1 thou/uL (4.8-10.8)
[2019-07-13 10:51] LABS: Carbamazepine-Tegretol Less than 1.9 ug/mL (4.0-12.0)
[2019-07-13 10:54] LABS: ALT (SGPT) 21 U/L (8-55); AST (SGOT) 15 U/L (5-34); Albumin 4.1 g/dL (3.5-5.0); Alkaline Phosphatase 149 U/L (40-110); Anion Gap 12 mmol/L (10-20); BUN (Urea Nitrogen) 17 mg/dL (9.8-20.1); Bilirubin, Total 0.2 mg/dL (0.2-1.2); Calc. Creatinine Clearance 0 mL/min (70-130); Calcium 9.1 mg/dL (7.8-10.44); Carbon Dioxide 26 mmol/L (22-29); Chloride 105 mmol/L (98-107); Dilantin 6.3 ug/mL (10.0-20.0); Estimated GFR-MDRD 70; Globulin 3.3 g/dL (2.4-3.5); Glucose 98 mg/dL (70-105); Potassium 4.4 mmol/L (3.5-5.1); Protein, Total 7.4 g/dL (6.0-8.3); Sodium 139 mmol/L (136-145)
--- NOTE | 2019-07-13 13:01 | CT ---
CT ABDOMEN AND PELVIS WITH IV CONTRAST 07/13/2019 CLINICAL INFORMATION: Ventral abdominal wall hernia with wound dehiscence. COMPARISON: None. Technique: Multiple contiguous axial CT images are obtained through the abdomen and pelvis with IV contrast. Cor onal reformatted images are provided. FINDINGS: Lower Chest: Calcified granuloma seen in the lingula. Minimal bibasilar atelectasis is present. There is a slightly irregular pleural-based nodular density at the right lateral costophrenic angle probably due to an area of scarring. Vessels: Vascular calcifications are seen in the abdominal aorta and involving the iliac arteries. Th ere is evidence of an aortal bifemoral bypass. Abdomen: Portal vein:Patent Gallbladder: Within normal limits for CT imaging. Liver: within normal limits. Spleen: within normal limits. Pancreas: within normal limits. Adrenals: within normal limits. Kidneys: There is suggestion of mild renal cortical scarring bilaterally. No hydronephrosis is presen t. Bowel: Normal caliber. Appendix: The appendix is visualized and normal in caliber. Peritoneum: No ascites or free air; no fluid collection. Mesentery and Retroperitoneum: No enlarged mesenteric or retroperitoneal lymph nodes. Abdominal Wall: There is a large ventral abdominal wall hernia in a supraumbilical location with larg e and small loops of bowel extending into this defect without evidence of a bowel obstruction. There is also a small fat-containing umbilical hernia. Pelvis: Reproductive Organs: Nabothian cyst is seen in the cervix. Pelvis within normal limits. Bladder: within normal limits. Bones: Degenerative changes are seen in the spine. There is lucency and sclerosis seen involving the anterior superior aspects of each femoral head suggesting developing avascular necrosis. IMPRESSION: 1. Large ventral abdominal wall hernia with loops of large and small bowel extending into the hernia defect. The transverse dimension of the hernia defect measures approximately 6.9 cm. There is no evidence of a bowel obstruction. 2. Small fat-containing umbilical hernia. 3. Postsurgical changes related to aortobifemoral bypass. 4. 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
[2019-07-13] MEDS ORDERED: SODIUM CHLORIDE 0.9% IVPB SCH (15:15)
[2019-07-13] MEDS ORDERED: FOSPHENYTOIN SODIUM IVPB SCH (15:15)
[2019-07-13 15:21] LABS: Bilirubin Negative (Negative); Blood, Urine Negative (Negative); Clarity Clear (Clear); Glucose, Urine (Dipstick) Normal (Negative); Leukocyte Negative Leu/uL (Negative); Nitrite Negative (Negative); Protein, Urine (Dipstick) Negative (Neg-Trace); Urobilinogen Normal mg/dL (Less than 2)
[2019-07-13] MEDS ORDERED: Iopamidol-370 76% 500 ML 1 ML ONE (15:22)
[2019-07-13 15:33] LABS: Amphetamine Not Detected (NotDetected); Barbiturates Screen Detected (NotDetected); Benzodiazepine Screen Detected (NotDetected); Cocaine Metabolite Screen Not Detected (NotDetected); Medtox Control Line Valid? VALID (VALID); Medtox Reader # READER 4; Methadone Not Detected (NotDetected); Methamphetamine Not Detected (NotDetected); Opiate Screen Not Detected (NotDetected); Oxycodone Screen Not Detected (NotDetected); Phencyclidine (PCP) Not Detected (NotDetected); THC/Cannabinoid Screen Not Detected (NotDetected); Tricyclic Screen Not Detected (NotDetected)
--- NOTE | 2019-07-13 16:42 | HP ---
CHIEF COMPLAINT: Episode of seizures while in the emergency room, being evaluated of her abdominal wounds. HISTORY OF PRESENT ILLNESS: The patient is a 54-year-old female, who is presenting to the emergency room with her abdominal wounds. Apparently, approximately 10 days ago, she started seeing some small open area in her scar post surgery in the midline, which got gradually bigger to approximately 1.5 inch in length and the patient was seen by her primary care physician who started her on Bactrim and she came to the emergency room for further evaluation because she noticed some small area which was above the first wound which was showing some worsening and most likely getting open like the previous one. While in the emergency room, she had seizures and the patient was treated with IV phenytoin after she was found to have a Dilantin level low at 6. She is getting admitted for further management of the above-mentioned problems. She denied any fever or chills. She had some abdominal pain and prior to this, she noticed some abdominal discomfort. She noticed also that her abdomen is more protruding to the front and upper part is bulging out. She denied any chest pain. She has some shortness of breath on exertion. She has morning cough, but most likely this is related to her cigarette smoking. PAST MEDICAL HISTORY: Positive for 1. Coronary artery disease. 2. Hyperlipidemia. 3. Hypertension. 4. CVA. 5. Diabetes mellitus type 2. 6. Marco paralysis syndrome. 7. Seizures. 8. COPD. 9. Neuropathy. PAST SURGICAL HISTORY: 1. Aortic bypass per documentation. 2. Coronary artery bypass graft surgery. 3. Tubal ligation. 4. 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 PSYCHIATRIC HISTORY: Positive for depression. SOCIAL HISTORY: She is smokes 1 pack of cigarettes per day. She does not drink alcohol. She does not use any illicit drugs. ALLERGIES: PENICILLIN. MEDICATIONS: 1. Carvedilol 3.125 mg twice a day. 2. Atorvastatin 40 mg at bedtime. 3. Trazodone 50 mg tablets 2 tablets at bedtime. 4. Aspirin 81 mg once a day. 5. Gabapentin 300 mg 4 times a day. 6. Topamax 25 mg tablets two tablets twice a day. 7. Clonazepam 0.5 mg twice a day. 8. NovoLog 10 units 3 times a day before meals and insulin Lantus 50 units at bedtime. FAMILY HISTORY: Father of lung cancer in his 60s. Mother of old age. REVIEW OF SYSTEMS: All 14 systems were reviewed and they are negative except for symptoms mentioned in HPI. PHYSICAL EXAMINATION: VITAL SIGNS: Blood pressure is 134/89, pulse is 80, respiratory rate is 19, O2 saturation is 95% HEENT: Head is atraumatic and normocephalic. Eyes are PERRLA. Sclerae are nonicteric. Oral mucosa is moist. NECK: Supple. LUNGS: Clear. HEART: S1, S2 normal. No S3. No S4. ABDOMEN: Protruded to the front with some upper parts of the abdomen epigastric area bulging out with one area which is scabbed in the midline in length approximately 1.5 inch x 0.5 inch. Bowel sounds are present. EXTREMITIES: No clubbing, cyanosis, or edema. NEUROLOGIC: She follows my commands. She moves all 4 extremities. There is no any motor or sensory deficits present. Cranial nerves are intact. LABORATORY DATA: White count of 11.1, hemoglobin of 14.9, hematocrit 46.2, platelet count is 436. Normal chemistry except for alkaline phosphatase which is 149. Prolactin 19.19. Urinalysis within normal limits with just specific gravity greater than 1.060. Urine drug screen positive for barbiturates and benzodiazepines, otherwise negative. Phenytoin level 6.3 and carbamazepine level less than 1.9. A CT of the abdomen and pelvis was done with IV contrast which showed. 1. Large ventral abdominal wall hernia with loops of large and small bowel extending into the hernia defect. There is no evidence of bowel obstruction. 2. Small fat containing umbilical hernia. 3. Postsurgical changes related to aortobifemoral bypass. 4. 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 IMPRESSION: 1. Recurrent seizures. 2. Large ventral abdominal wall hernia and dehiscence of the wound from previous surgery in the abdomen. 3. Diabetes mellitus type 2. 4. Coronary artery disease, status post coronary artery bypass graft. 5. Hypertension. 6. History of Marco paralysis. 7. Chronic obstructive pulmonary disease. 8. History of cerebrovascular accident. 9. History of depression. PLAN: The patient is admitted to a surgical floor. Condition is fair. Activity is bedrest and bathroom privileges. IV Hep-Lock. The patient received a dose of . We will reconcile her home medications and continue all of them. We will get Surgical consult to evaluate for possible surgery for large ventral abdominal hernia to prevent further deterioration of the previous wound from previous surgery. We will do DVT prophylaxis with SCDs and heparin and will have Wound Care team on the case. Job ID: [id number]
[2019-07-13] MEDS ORDERED: Dextrose 5% in Water 1,000 ML IV PRN (18:49)
[2019-07-13] MEDS ORDERED: HumaLOG 300 UNITS/3 ML VIAL SC PRN (18:49)
[2019-07-13] MEDS ORDERED: Dextrose 50% Abboject 50 ML SYRINGE SLOW IVP PRN (18:49)
[2019-07-13] MEDS ORDERED: Acetaminophen/Codeine 30-300mg Tablet PO PRN (18:49)
[2019-07-13] MEDS ORDERED: HumaLOG 300 UNITS/3 ML VIAL SC SCH (19:00)
[2019-07-13] MEDS: Insulin Glargine 50 UNITS in Pre-Filled Syringe SC SCH (19:54)
[2019-07-14] MEDS ORDERED: clonazePAM 1 MG TAB PO SCH (01:00)
[2019-07-14] MEDS ORDERED: traZODone HCl 50 MG TAB PO SCH ×2 (01:15→21:00)
[2019-07-14] MEDS: Acetaminophen 325 MG TAB PO PRN ×2 (08:11→21:56)
[2019-07-14] MEDS: clonazePAM 0.5 MG TAB PO SCH ×2 (10:22→21:49)
[2019-07-14] MEDS: Enoxaparin Sodium 40 MG/0.4 ML SYRINGE SC SCH (10:22)
[2019-07-14] MEDS: HumaLOG 300 UNITS/3 ML VIAL SC SCH ×3 (10:23→16:22)
[2019-07-14] MEDS ORDERED: Gabapentin 300 MG CAP PO SCH ×2 (10:30→17:00)
--- NOTE | 2019-07-14 11:20 | PDOC.HOSPP ---
- Subjective Encounter Date: 07/14/19 Encounter Time: 07:45 Subjective: Expresses no complaint. - Objective Vital Signs & Weight: Vital Signs (12 hours) Temp Pulse Resp BP Pulse Ox 07/14/19 04:00 97.6 F 70 16 118/67 94 L 07/14/19 00:00 97.6 F 78 16 121/62 95 Weight Weight 314 lb 7 oz I&O: 07/13/19 07/14/19 07/15/19 06:59 06:59 06:59 Intake Total 480 Balance 480 Result Diagrams: 07/13/19 10:12 07/13/19 10:12 Additional Labs: Accuchecks 07/14/19 07/13/19 06:04 16:28 POC Glucose 105 101 Hospitalist ROS - Medication Medications: Active Medications Generic Name Dose Route Start Last Admin Trade Name Freq PRN Reason Stop Dose Admin Acetaminophen 650 mg 07/13/19 18:49 07/14/19 08:11 Tylenol PO 650 mg Q4H PRN Administration Headache/Fever/Mild Pain (1-3) Clonazepam 0.5 mg 07/14/19 09:00 07/14/19 10:22 Klonopin PO 0.5 mg BID DAMIEN Administration Enoxaparin Sodium 40 mg 07/14/19 09:00 07/14/19 10:22 Lovenox SC 40 mg 0900 DAMIEN Administration Gabapentin 600 mg 07/14/19 10:30 07/14/19 10:47 Neurontin PO 07/14/19 12:30 600 mg NOW DAMIEN Administration Insulin Glargine 50 units/ 0.5 mls @ 0 mls/hr 07/13/19 21:00 07/13/19 19:54 Miscellaneous Medication SC Not Given HS DAMIEN Insulin Human Lispro 10 units 07/14/19 07:30 07/14/19 10:23 Humalog SC 10 unit AC DAMIEN Administration Phenytoin Sodium 200 mg 07/13/19 21:00 07/14/19 09:53 Dilantin PO Not Given TID DAMIEN - Exam General Appearance: NAD Neck: no JVD Heart: RRR Respiratory: CTAB Gastrointestinal: soft (Ventral hernia + chronic wound.) Extremities: no edema Hosp A/P (1) HTN (hypertension) Code(s): I10 - ESSENTIAL (PRIMARY) HYPERTENSION Status: Acute (2) Diabetes mellitus Code(s): E11.9 - TYPE 2 DIABETES MELLITUS WITHOUT COMPLICATIONS Status: Acute (3) Seizure Code(s): R56.9 - UNSPECIFIED CONVULSIONS Status: Acute (4) CAD (coronary artery disease) Code(s): I25.10 - ATHSCL HEART DISEASE OF [place] CORONARY ARTERY W/O ANG PCTRS Status: Acute (5) Morbid obesity Code(s): E66.01 - MORBID (SEVERE) OBESITY DUE TO EXCESS CALORIES Status: Acute - Plan BP & BS satisfactory.. Seizure due to subtherapeutic dilantin level.. Loading dose of dilantin given. f/u dilantin level..
[2019-07-14] MEDS: Gabapentin 300 MG CAP PO SCH ×2 (12:46→21:48)
[2019-07-14 14:33] VITALS: BMI 49.2
--- NOTE | 2019-07-14 16:50 | CON ---
DATE OF CONSULTATION: HISTORY OF PRESENT ILLNESS: Irma Cleary is a 54-year-old female, who presented to the emergency room with an incisional hernia in the upper abdomen with some skin excoriations and was evaluated while in the emergency room. She suffered a seizure. She has a known seizure disorder. She has been evaluated for that with a Dilantin level pending. While in the emergency room, she had a CAT scan of the abdomen and pelvis obtained, revealing ventral hernia without obstruction with contained 6 loops of small bowel and large bowel without obstruction. She is having a normal bowel function and not having nausea or vomiting. The patient on 10/28/2017 presented with Leriche syndrome, occluded aorta acutely and underwent emergent aortofemoral bypass by Dr. Todd Manriquez. Shortly after that on 11/02/2017, due to multiple past embolic events, she had a sternotomy with atrial myxoma resected. The patient has stroke sequelae of weakness in her left upper extremity and balance problems, for which she ambulates with a walker. The patient smokes 1 pack of cigarettes a day, is morbidly obese, 49 BMI, 5 feet 7 inches, 314 pounds, and has insulin-dependent diabetes mellitus. She states she has tried a ketogenic diet in the last week, but has gained some weight prior to this hospitalization. I have been asked today to see her regarding her incisional hernia. ALLERGIES: PENICILLIN. HABITS: Tobacco, a pack per day. Alcohol, none. MEDICATIONS: 1. Topamax. 2. Tramadol. 3. Dilantin. 4. Atorvastatin. 5. Aspirin. 6. Meloxicam. 7. Insulin. 8. Zyrtec. 9. Coreg. 10. Trazodone. 11. Cymbalta. 12. Neurontin. 13. Klonopin. PAST SURGICAL HISTORY: 1. In 2018, aortobifemoral bypass for occluded aorta, emergent. 2. Tubal ligation. 3. In 2018, as noted above, sternotomy and atrial myxoma resection. Echocardiogram demonstrated atrial myxoma last year. REVIEW OF SYSTEMS: Noncontributory except for systems as noted above. PHYSICAL EXAMINATION: VITAL SIGNS: Height 5 feet 7 inches, 314 pounds, 49 BMI, temperature 97.9, heart rate 72, and blood pressure 106/64. HEAD, EARS, EYES, NOSE, AND THROAT: Unremarkable. LUNGS: Clear to auscultation. CARDIAC: Regular rhythm without murmur or gallop. ABDOMEN: Soft, obese. Large incisional hernia, I cannot completely reduce. Abdomen otherwise soft. EXTREMITIES: Unremarkable. Splint in the left wrist due to changes from her stroke. LABORATORY DATA: White count 11 and hemoglobin 14. Sodium 139 and potassium 4.4. Liver function tests normal. ASSESSMENT AND PLAN: 1. Incisional hernia. There is no acute indication for intervention. This would best be addressed with a robotic approach with mesh and would best be accomplished after significant weight loss to minimize recurrence. Weight loss would improve her diabetes control. Tobacco cessation is an essential. Recurrence of incisional hernias is based on morbid obesity, tobacco abuse, and diabetes, all of which she has. The excoriation of the skin is probably suture related and there is not an indication for more urgent intervention. At this point, I would recommend she be seen by dietitian to educate her and maximize weight loss efforts. I recommend that she stop smoking. After significant weight loss and tobacco cessation, she would be a much better risks as far as incisional hernia repair, recurrence rate would be much less. 2. She would benefit from preoperative cardiac evaluation and cardiac stress test. This can be done as an outpatient. 3. Diabetes mellitus. 4. Hypertension. 5. History of atrial myxoma resection. 6. Tobacco abuse. 7. Prior strokes with limited mobility, requiring a walker due to balance. 8. Left arm weakness. At this point, I would recommend these measures be taken to lose weight, stop smoking, and that she follow up in my office in the next 3 to 4 weeks. She should see a Cardiology for preoperative cardiac clearance at some point. I will see her as needed in this hospitalization. I recommend she follow up with me in the office in 3 to 4 weeks. Job ID: [id number]
[2019-07-14] MEDS ORDERED: Triple Antibiotic Ointment 15 GM TUBE TOP SCH (18:45)
[2019-07-14] MEDS ORDERED: FLU VACC QS2019-20(6MOS UP)/PF 60 MCG/0.5 ML SYRINGE IM ONE (21:00)
[2019-07-14] MEDS: Insulin Glargine 50 UNITS in Pre-Filled Syringe SC SCH (21:50)
[2019-07-15] MEDS: Gabapentin 300 MG CAP PO SCH (08:55)
[2019-07-15] MEDS: HumaLOG 300 UNITS/3 ML VIAL SC SCH ×2 (08:55→11:25)
[2019-07-15] MEDS: clonazePAM 0.5 MG TAB PO SCH (08:55)
[2019-07-15] MEDS: Enoxaparin Sodium 40 MG/0.4 ML SYRINGE SC SCH (08:56)
[2019-07-15] MEDS ORDERED: Triple Antibiotic Ointment 15 GM TUBE TOP SCH (09:00)
[2019-07-15 09:49] VITALS: BP 155/73; TEMP 97.5
--- NOTE | 2019-07-15 10:21 | DIS ---
DATE OF ADMISSION: 07/13/2019 DATE OF DISCHARGE: 07/15/2019 ADMITTING AND PRIMARY DIAGNOSIS: Recurrent seizure. SECONDARY DIAGNOSES: 1. Ventral hernia with dehiscent wound. 2. Diabetes mellitus. 3. Coronary artery disease. 4. Hypertension. 5. Chronic obstructive pulmonary disease. 6. History of cerebrovascular accident. 7. History of depression. 8. History of Marco paralysis. DISCHARGE DIAGNOSIS: Seizure secondary to noncompliance to medication. NUCLEAR MEDICAL TECHNOLOGIST: Jamarcus Ortiz MD PROCEDURE: Abdomen and pelvis CT. COURSE OF HOSPITALIZATION: Uncomplicated. Responded well to management. The patient is clinically stable at this time, being discharged home. She is to follow up with Dr. Ortiz for regarding her abdominal wound and also with her primary care physician. She is currently stable at this time. DISCHARGE TIME: 31 minutes. Job ID: [id number]
== END 2019-07-15 11:32 | disposition home or self-care (01) ==
LOC: ERS 09:44 → 2SE 18:28
PROVIDERS: ADMIT Internal Medicine; ATTEND Internal Medicine
DX: G40.909 Epilepsy, unspecified, not intractable, without status epilepticus (principal); K43.2 Incisional hernia without obstruction or gangrene; I10 Essential (primary) hypertension; I25.10 Atherosclerotic heart disease of native coronary artery without angina pectoris; E11.9 Type 2 diabetes mellitus without complications; J44.9 Chronic obstructive pulmonary disease, unspecified; F17.210 Nicotine dependence, cigarettes, uncomplicated; F32.9 Major depressive disorder, single episode, unspecified; E66.01 Morbid (severe) obesity due to excess calories; Z68.42 Body mass index [BMI] 45.0-49.9, adult; Z79.4 Long term (current) use of insulin; Z79.82 Long term (current) use of aspirin; Z79.899 Other long term (current) drug therapy; Z86.73 Personal history of transient ischemic attack (TIA), and cerebral infarction without residual deficits; Z88.0 Allergy status to penicillin; Z91.14 Patient's other noncompliance with medication regimen; Z95.1 Presence of aortocoronary bypass graft
CPT/HCPCS: 36415; 36416; 74177; 80053; 80156; 80185; 80306; 81003; 84146; 85025; 94760; 96365; 96366; 96372; G0378; J1650; J1815; Q2009; Q9967

== ENCOUNTER 2019-07-18 10:05 | Emergency (ER) | payer OTHER ==
[2019-07-18 10:55] LABS: #Basophils 0.1 thou/uL (0.0-0.2); #Eosinphils 0.3 thou/uL (0.0-0.7); #Lymphocytes 2.6 thou/uL (1.20-3.40); #Monocytes 0.6 thou/uL (0.11-0.59); #Neutrophils 5.9 thou/uL (1.40-6.50); %Basophils 1.2 % (0.0-1.0); %Eosinophils 3.1 % (0.0-10.0); %Lymphocytes 27.6 % (21.0-51.0); %Monocytes 6.5 % (0.0-10.0); %Neutrophils 61.7 % (42.0-75.0); Hemoglobin 14.2 g/dL (12.0-16.0); Mean Corpuscular HGB CONC 31.8 g/dL (32.0-36.0); Mean Corpuscular Hemoglobin 28.1 pg (27.0-31.0); Mean Corpuscular Volume 88.4 fL (78.0-98.0); Platelet Count 384 thou/uL (130-400); RBC Distribution Width 14.7 % (11.5-14.5); Red Blood Cell (RBC) Count 5.06 mill/uL (4.20-5.40); White Blood Cell (WBC) Count 9.5 thou/uL (4.8-10.8)
[2019-07-18 10:58] LABS: BHCG - Serum Negative (NEGATIVE); Pregs Control Background? CLEAR/WHITE (CLR/WHITE); Pregs Control Bar Appear? YES (CONTROL BAR)
[2019-07-18 11:32] LABS: Acetaminophen Less than 6.0 mcg/mL (10.0-30.0); Alcohol Less than 10 mg/dL (Less than 10); CK (CPK) 23 U/L (29-168); Carbamazepine-Tegretol 2.1 ug/mL (4.0-12.0); Salicylate Less than 8.0 mg/dL (15.0-30.0)
[2019-07-18 11:35] LABS: ALT (SGPT) 19 U/L (8-55); AST (SGOT) 16 U/L (5-34); Alkaline Phosphatase 127 U/L (40-110); Anion Gap 12 mmol/L (10-20); BUN (Urea Nitrogen) 17 mg/dL (9.8-20.1); Bilirubin, Total 0.2 mg/dL (0.2-1.2); Calc. Creatinine Clearance 0 mL/min (70-130); Calcium 8.9 mg/dL (7.8-10.44); Carbon Dioxide 27 mmol/L (22-29); Chloride 105 mmol/L (98-107); Estimated GFR-MDRD 65; Globulin 3.1 g/dL (2.4-3.5); Glucose 100 mg/dL (70-105); Potassium 4.9 mmol/L (3.5-5.1); Protein, Total 7.1 g/dL (6.0-8.3); Sodium 139 mmol/L (136-145)
[2019-07-18 13:26] LABS: Amphetamine Not Detected (NotDetected); Barbiturates Screen Detected (NotDetected); Benzodiazepine Screen Detected (NotDetected); Cocaine Metabolite Screen Not Detected (NotDetected); Medtox Control Line Valid? VALID (VALID); Medtox Reader # READER 1; Methadone Not Detected (NotDetected); Methamphetamine Not Detected (NotDetected); Opiate Screen Not Detected (NotDetected); Oxycodone Screen Not Detected (NotDetected); Phencyclidine (PCP) Not Detected (NotDetected); THC/Cannabinoid Screen Not Detected (NotDetected); Tricyclic Screen Not Detected (NotDetected)
[2019-07-20 11:11] LABS: Topiramate (Topamax) Test None Detected ug/mL (2.0-25.0)
== END 2019-07-18 16:22 | disposition home or self-care (01) ==
LOC: ERS 10:05
DX: K72.90 Hepatic failure, unspecified without coma (principal); I48.91 Unspecified atrial fibrillation; I11.0 Hypertensive heart disease with heart failure; I50.9 Heart failure, unspecified; E10.9 Type 1 diabetes mellitus without complications; E03.9 Hypothyroidism, unspecified; Z86.711 Personal history of pulmonary embolism; Z79.899 Other long term (current) drug therapy
CPT/HCPCS: 51701; 80053; 80156; 80177; 80185; 80201; 80306; 80307; 82550; 83605; 84146; 84703; 85025; A4353